=== PATIENT | male | born 1925 | race Caucasian/White ===

== ENCOUNTER 2016-09-14 10:19 | Emergency (ER) | payer OTHER ==
[2016-09-14 10:25] VITALS: BP 135/59; PULSE 72; TEMP 98; BMI 26.6
[2016-09-14] MEDS ORDERED: DIPHTH,PERTUSS(ACELL),TET 0.5 ML DISP.SYRIN IM ONE (11:06)
--- NOTE | 2016-09-14 11:17 | PDOC ---
History of Present Illness - General Chief Complaint: Bite Stated Complaint: DOG BITE Time Seen by Provider: 09/14/16 10:32 History Source: Patient, Spouse - History of Present Illness Associated Symptoms: denies: fever/chills Past History - Past Medical History Allergies/Adverse Reactions: Allergies Allergy/AdvReac Type Severity Reaction Status Date / Time No Known Allergies Allergy Verified 09/14/16 10:25 Home Medications: Ambulatory Orders Atorvastatin Ca [Lipitor] 10 mg PO DAILY 07/15/14 Carbidopa/Levodopa [Carbidopa-Levo 25-100 mg Odt] 0 each PO DAILY 07/15/14 Furosemide [Lasix -] 20 mg PO DAILY 07/15/14 Isosorbide Mononitrate [Isosorbide Mononitrate ER] 60 mg PO DAILY 07/15/14 Losartan Potassium 25 mg PO DAILY 07/15/14 Metoprolol Tartrate 50 mg PO DAILY 07/15/14 Omeprazole [Prilosec] 20 mg PO DAILY 07/15/14 Ranolazine [Ranexa] 500 mg PO BID 07/15/14 Selegiline HCl 5 mg PO BID 07/15/14 Aspirin [ASA -] 81 mg PO DAILY #30 tab.chew 07/19/14 Cephalexin [Keflex] 500 mg PO Q8H #21 capsule 07/19/14 Amoxicillin/Potassium Clav [Augmentin 875-125 Tablet] 1 each PO BID #14 tablet 09/14/16 Anemia: No Cardiac Disorders: Yes CVA: No HTN: Yes Hypercholesterolemia: Yes Suicide Attempt (Hx): No Seizures: No Thyroid Disease: No - Immunization History Immunization Up to Date: Yes - Psycho/Social/Smoking Cessation Hx Anxiety: No Suicidal Ideation: No Smoking Status: No Smoking History: Never smoked Have you smoked in the past 12 months: No Number of Cigarettes Smoked Daily: 0 Hx Alcohol Use: No Substance Use Type: None Hx Substance Use Treatment: No Review of Systems - Review of Systems Constitutional: No: Chills, Fever Integumentary: Yes: Other (wpund) *Physical Exam - Vital Signs Last Vital Signs Temp Pulse Resp BP Pulse Ox 98 F 72 18 135/59 97 09/14/16 10:20 09/14/16 10:20 09/14/16 10:20 09/14/16 10:20 05/16/17 10:20 - Physical Exam General Appearance: Yes: Appropriately Dressed. No: Apparent Distress HEENT: positive: Normal Voice Neck: positive: Supple Respiratory/Chest: negative: Respiratory Distress Musculoskeletal: positive: Other (superficial abration to distal phalanx of R thumb, near nail, no sig ttp, surrounding erythema or discharge) Integumentary: positive: Dry, Warm Neurologic: positive: Fully Oriented, Alert, Normal Mood/Affect Medical Decision Making - Medical Decision Making 09/14/16 11:08 89 yo M, h/o Parkinson skin, cancer s/p resection, HTN, here with dog bite. Pt states a friend's dog bit his R thumb last night after pt tried to give dog a treat. States dog's subscription agent told pt that dogs shots are up to date. States he has been cleaning wound with soap and water at home. Pt denies any sig pain and no f/c. See exam Dog bite Domestic dog source w/ uptodate vaccine per pt Superficial abrasion to distal phalanx R thumb, no s/o infxn -local wound care -tetanus -abx -state form sent -wound check in 48 hrs as needed 09/14/16 11:34 *DC/Admit/Observation/Transfer Diagnosis at time of Disposition: Dog bite Qualifiers: Encounter type: initial encounter Qualified Code(s): W54.0XXA - Bitten by dog, initial encounter - Discharge Dispostion Disposition: HOME Condition at time of disposition: Good - Prescriptions Prescriptions: Amoxicillin/Potassium Clav [Augmentin 875-125 Tablet] 1 each PO BID #14 tablet - Referrals Referrals: Chong Castellon MD [Primary Care Provider] - - Patient Instructions Printed Discharge Instructions: DI for Dog Bite Additional Instructions: Take antibiotics as directed Return to ED for worsening pain, discharge, redness or fever
== END 2016-09-14 11:34 | disposition home or self-care (01) ==
LOC: JERFT 10:19
PROC: 3E0234Z Introduction of Serum, Toxoid and Vaccine into Muscle, Percutaneous Approach (ICD-10-PCS; principal; 2016-09-14)
DX: S60.371A Other superficial bite of right thumb, initial encounter (principal); W54.0XXA Bitten by dog, initial encounter; Y93.K9 Activity, other involving animal care; Y92.89 Other specified places as the place of occurrence of the external cause; I10 Essential (primary) hypertension; E78.00 Pure hypercholesterolemia, unspecified
CPT/HCPCS: 90471; 90715; 99281-25

== ENCOUNTER 2017-05-20 16:26 | Inpatient (IN) | payer OTHER ==
--- NOTE | 2017-05-20 17:15 | PDOC ---
History of Present Illness - General Chief Complaint: Lightheaded Stated Complaint: DIZZINESS Time Seen by Provider: 05/20/17 17:13 History Source: Patient - History of Present Illness Initial Comments: 05/20/17 19:53 Patient is an 89 y.o. male with a PMH of Parkinson's Disease (w/residual L sided weakness) DLD and HTN who presents to our ED today with a c/o weakness, lightheadedness and intermittent vertigo. Patient states he was in his usual state of health this morning until he tried to stand up after eating breakfast at which time he felt lightheaded, diaphoretic and weak. Patient denies any associated chest pain or dyspnea. Patient states the lightheadedness persisted prompting his visit to the ED. NKDA PMD: Dr. Bateman Past History - Past Medical History Allergies/Adverse Reactions: Allergies Allergy/AdvReac Type Severity Reaction Status Date / Time No Known Allergies Allergy Verified 05/20/17 16:46 Home Medications: Ambulatory Orders Atorvastatin Ca [Lipitor] 10 mg PO DAILY 07/15/14 Carbidopa/Levodopa [Carbidopa-Levo 25-100 mg Odt] 0 each PO DAILY 07/15/14 Furosemide [Lasix -] 20 mg PO DAILY 07/15/14 Isosorbide Mononitrate [Isosorbide Mononitrate ER] 60 mg PO DAILY 07/15/14 Losartan Potassium 25 mg PO DAILY 07/15/14 Metoprolol Tartrate 50 mg PO DAILY 07/15/14 Omeprazole [Prilosec] 20 mg PO DAILY 07/15/14 Ranolazine [Ranexa] 500 mg PO BID 07/15/14 Selegiline HCl 5 mg PO BID 07/15/14 Aspirin [ASA -] 81 mg PO DAILY #30 tab.chew 07/19/14 Anemia: No Cardiac Disorders: Yes CVA: No COPD: No HTN: Yes Hypercholesterolemia: Yes Seizures: No Thyroid Disease: No Other medical history: PARKINSONS. - Immunization History Immunization Up to Date: Yes - Suicide/Smoking/Psychosocial Hx Smoking Status: No Smoking History: Never smoked Have you smoked in the past 12 months: No Number of Cigarettes Smoked Daily: 0 Hx Alcohol Use: No Drug/Substance Use Hx: No Substance Use Type: None Hx Substance Use Treatment: No Review of Systems - Review of Systems Constitutional: No: Chills, Fever HEENTM: No: Blurred Vision, Double Vision Respiratory: No: Shortness of Breath Cardiac (ROS): No: Chest Pain ABD/GI: No: Constipated, Diarrhea, Nausea, Vomiting : No: Burning, Dysuria All Other Systems: Reviewed and Negative *Physical Exam - Vital Signs Last Vital Signs Temp Pulse Resp BP Pulse Ox 97.9 F 62 18 124/52 100 05/20/17 16:44 05/20/17 16:44 05/20/17 16:44 05/20/17 16:44 05/20/17 16:44 - Physical Exam General Appearance: Yes: Nourished, Thin HEENT: positive: EOMI, EMILY, Thrush. negative: Pharyngeal Erythema, TM Bulging , TM Dull, TM Erythema Neck: positive: Supple Respiratory/Chest: positive: Lungs Clear Cardiovascular: positive: S1, S2, Edema (3+ pitting edema B/L) Extremity: positive: Normal Capillary Refill, Normal Inspection Integumentary: positive: Other (seborrheic keratosis on R temporal area, B/L LE) ED Treatment Course - LABORATORY CBC & Chemistry Diagram: 05/20/17 17:30 05/20/17 17:30 Medical Decision Making - Medical Decision Making 05/20/17 20:05 Patient is an 89 y.o. male who presents with acute onset of weakness. Will obtain EKG, Troponin to r/o ACS. CMP to r/o electrolyte abnormality and CBC to r/o anemia. Likely disposition is admission for further evaluation. Patient signed out to Dr. Nayak (Resident) and Dr. Clemente (Attending). *DC/Admit/Observation/Transfer Diagnosis at time of Disposition: Weakness - Referrals Referrals: Miguel Angel Bateman MD [Primary Care Provider] - - Patient Instructions - Post Discharge Activity
--- NOTE | 2017-05-20 17:16 | PDOC ---
Attending Attestation - Resident Resident Name: Joanna Victoria - HPI HPI: 05/21/17 18:57 PT presents to the ED complaining of an episode of generalized weakness and lightheadness that occurred while standing. Patient is still complaining of feeling "off balance" in the ED. 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 - Physicial Exam PE: 05/21/17 19:00 Agree with resident exam. Lungs are clear. Heart has regular rate and rhythm. Patient is alert and oriented in no acute distress. - Medical Decision Making 05/21/17 18:58 Pt presents to the ED with presyncopal episode. Labs and imaging studies are within normal limits, but given age and comorbidities, I am concerned for cardiac syncope. Will admit for cardiac monitoring and syncope work up.
[2017-05-20 17:39] LABS: BASO % 0.7 % (0-2.0); EOS % 1.9 % (0-4.5); HEMATOCRIT 35.8 % (35.4-49); HEMOGLOBIN 12.1 GM/dL (11.7-16.9); LYMPH % 16.1 % (8-40); MCHC 33.9 g/dl (32.0-35.9); MEAN CELL VOLUME 94.4 fl (80-96); MEAN PLT VOLUME 8.3 fl (7.5-11.1); MONO % 7.5 % (3.8-10.2); NEUT % 73.8 % (42.8-82.8); PLATELET COUNT 202 K/MM3 (134-434); RBC 3.79 M/mm3 (4.00-5.60); RDW 13.9 % (11.9-15.9)
[2017-05-20 18:34] LABS: ALBUMIN 3.4 g/dl (3.4-5.0); ANION GAP 6 (8-16); BLOOD UREA NITROGEN 26 mg/dL (7-18); CALCIUM 8.8 mg/dL (8.5-10.1); CHLORIDE 107 mmol/L (98-107); CO2 29 mmol/L (21-32); GLUCOSE,RANDOM 90 mg/dL (74-106); POTASSIUM 4.1 mmol/L (3.5-5.1); SODIUM 142 mmol/L (136-145)
[2017-05-20 18:40] LABS: ALK PHOS 89 U/L (45-117); BILIRUBIN,TOTAL 0.7 mg/dL (0.2-1.0); SGOT/AST 14 U/L (15-37); SGPT/ALT 10 U/L (12-78); TOT PROT 6.3 g/dl (6.4-8.2)
[2017-05-20] MEDS ORDERED: METOPROLOL SUCCINATE 25 MG TAB.SR.24H (FP) PO ONE (23:21)
[2017-05-20] MEDS ORDERED: FUROSEMIDE 40 MG TABLET (FP) PO ONE (23:21)
[2017-05-20] MEDS ORDERED: ATORVASTATIN CA 80 MG TABLET (FP) PO ONE (23:21)
[2017-05-20] MEDS ORDERED: CARBIDOPA/LEVODOPA 25/100 TABLET (FP) PO ONE (23:21)
--- NOTE | 2017-05-21 00:01 | PDOC ---
*Physical Exam - Vital Signs Last Vital Signs Temp Pulse Resp BP Pulse Ox 97.8 F 76 18 140/67 99 05/20/17 20:12 05/20/17 20:12 05/20/17 20:12 05/20/17 20:12 05/20/17 20:12 Patient's care assumed from Dr. Victoria at the beginning of my shift. 89 YOM h/o Parkinsons with chronic baseline left sided weakness, p/w generalized weakness, lightheadedness, intermittent vertigo. Awaiting lab results and will admit the patient for intractable lightheadedness/gen weakness, with neuro consult. ED Treatment Course - LABORATORY CBC & Chemistry Diagram: 05/20/17 17:30 05/20/17 17:30 - ADDITIONAL ORDERS Additional order review: Laboratory Results 05/20/17 05/20/17 17:30 17:30 WBC 8.0 RBC 3.79 L Hgb 12.1 Hct 35.8 MCV 94.4 MCH 32.0 MCHC 33.9 RDW 13.9 Plt Count 202 MPV 8.3 Neutrophils % 73.8 Lymphocytes % 16.1 D Monocytes % 7.5 Eosinophils % 1.9 Basophils % 0.7 Sodium 142 Potassium 4.1 Chloride 107 Carbon Dioxide 29 Anion Gap 6 L BUN 26 H D Creatinine 1.0 Creat Clearance w eGFR > 60 Random Glucose 90 Calcium 8.8 Total Bilirubin 0.7 D AST 14 L ALT 10 L Alkaline Phosphatase 89 Creatine Kinase 121 Troponin I < 0.02 Total Protein 6.3 L Albumin 3.4 05/20/17 17:30 RBC 3.79 L MCV 94.4 MCHC 33.9 RDW 13.9 MPV 8.3 Neutrophils % 73.8 Lymphocytes % 16.1 D Monocytes % 7.5 Eosinophils % 1.9 Basophils % 0.7 Medical Decision Making - Medical Decision Making 05/21/17 00:05 Patient's essential evening medications have been ordered. Patient admitted to Med/Surg IP to Dr. Lopez. Consult placed to Dr. Branham (OC for Neuro). *DC/Admit/Observation/Transfer Diagnosis at time of Disposition: Weakness, Lightheadedness, Parkinson disease, Vertigo - Discharge Dispostion Condition at time of disposition: Guarded Admit: Yes - Referrals Referrals: Miguel Angel Bateman MD [Primary Care Provider] - - Patient Instructions - Post Discharge Activity
[2017-05-21] MEDS ORDERED: FUROSEMIDE 40 MG TABLET (FP) ONE (00:10)
[2017-05-21] MEDS ORDERED: METOPROLOL TARTRATE 25 MG TABLET (FP) ONE (00:10)
[2017-05-21] MEDS ORDERED: CARBIDOPA/LEVODOPA 25/100 TABLET (FP) ONE (00:11)
[2017-05-21] MEDS ORDERED: ATORVASTATIN CA 40 MG TABLET (FP) ONE (00:15)
--- NOTE | 2017-05-21 00:28 | HP ---
Admitting History and Physical - Primary Care Physician PCP: Miguel Angel Bateman - Admission Chief Complaint: Couldn't get up from couch History of Present Illness: 89 yo M h/o Parkinson's disease on sinemet presents with inability to stand for 1 day. Patient is a poor historian, but states that he was unable to get up from couch this afternoon in that he felt weak and heavy. He uses cane and walker in the house and he is usually able to get up from sitting position to standing with minimal effort. His sinemet dose was recently increased by his neurologist. He denies any dizziness, room or self spinning, chest pain, palpation, headache, vision change, trauma, slurred speeches. History Source: Patient Limitations to Obtaining History: Other (hard at hearing) - Past Medical History [employer]: Yes: Parkinson's Cardiovascular: Yes: CAD, HTN, Other (unspecified cardiac disorder) Dermatology: Yes: Basal Cell (s/p resection), Melanoma (s/p resection) - Smoking History Smoking history: Never smoked Have you smoked in the past 12 months: No Aproximately how many cigarettes per day: 0 - Alcohol/Substance Use Hx Alcohol Use: No History of Substance Use: reports: None Home Medications - Allergies Allergies/Adverse Reactions: Allergies Allergy/AdvReac Type Severity Reaction Status Date / Time No Known Allergies Allergy Verified 05/20/17 16:46 - Home Medications Home Medications: Ambulatory Orders Atorvastatin Ca [Lipitor] 10 mg PO DAILY 07/15/14 Carbidopa/Levodopa [Carbidopa-Levo 25-100 mg Odt] 0 each PO DAILY 07/15/14 Furosemide [Lasix -] 20 mg PO DAILY 07/15/14 Isosorbide Mononitrate [Isosorbide Mononitrate ER] 60 mg PO DAILY 07/15/14 Losartan Potassium 25 mg PO DAILY 07/15/14 Metoprolol Tartrate 50 mg PO DAILY 07/15/14 Omeprazole [Prilosec] 20 mg PO DAILY 07/15/14 Ranolazine [Ranexa] 500 mg PO BID 07/15/14 Selegiline HCl 5 mg PO BID 07/15/14 Aspirin [ASA -] 81 mg PO DAILY #30 tab.chew 07/19/14 Family Disease History - Family Disease History Family Disease History: Diabetes: Father, Other: Mother (alzheimers) Review of Systems - Review of Systems Constitutional: reports: No Symptoms Eyes: reports: Other (R cataract) HENT: reports: No Symptoms Neck: reports: No Symptoms Cardiovascular: denies: Chest Pain, Palpitations Respiratory: denies: SOB Gastrointestinal: reports: No Symptoms Integumentary: reports: Other (skin changes) Neurological: reports: Unsteady Gait, Weakness Physical Examination Vital Signs: Vital Signs Temperature 97.8 F 05/20/17 20:12 Pulse Rate 76 05/20/17 20:12 Respiratory Rate 18 05/20/17 20:12 Blood Pressure 140/67 05/20/17 20:12 O2 Sat by Pulse Oximetry (%) 99 05/20/17 20:12 Constitutional: Yes: No Distress, Calm Eyes: Yes: Other (R eye cataract) HENT: Yes: Atraumatic, Normocephalic Neck: Yes: Supple Cardiovascular: Yes: Regular Rate and Rhythm, S1, S2. No: Murmur Respiratory: Yes: CTA Bilaterally Gastrointestinal: Yes: Normal Bowel Sounds, Soft. No: Tenderness Extremities: Yes: Other (peripheral edema) Edema: Yes Edema: LLE: 2+, RLE: 2+ Peripheral Pulses WNL: Yes Integumentary: Yes: Other (many moles) Neurological: Yes: Alert, Oriented, Cran Nerves II-XII Intact, Unsteady Gait, Other (hard at hearing). No: Confusion, Facial Droop ...Motor Strength: WNL Labs: CBC, BMP 05/20/17 17:30 05/20/17 17:30 Assessment/Plan 89 yo M h/o Parkinson's disease on sinemet presents with inability to stand x 1 day. 1. Inability to stand/ambulate: Ambulate w/ cane or walker with minimal assistance at baseline. Likely 2/2 Parkinson's disease flare-up. caridopa/leva dose was increased 6 months ago by his neurologist (Dr. Gordon @ [place]). No EKG was found in ED, stat EKG ordered. Cycle troponins. Will consult in-house neurology and PT eval. 2. b/l LE edema s/p CAD w/ stents: worsening edema past few weeks, cont. lasix and order ECHO. Cardiology consult. 3. Leg cramps: likely 2/2 parkinson's disease. unlikely due to lipitor. 4. Fullness in R ear: pt unable to describe sx in detail. ENT consult. 5. HTN: continue toprol, imdur, losartan, lasix 6. CAD, angina pectoris: continue asa, ranexa 7. Parkinson's Disease: continue carbidopa/levadopa and selegeline FEN: no fluid. sodium controlled diet, replete electrolytes PRN DVT ppx: heparin TID Dispo: Once cleared by neurology, ENT, Cards, patient may need to be discharged to rehab. Best Romero MD PGY2 Visit type - Emergency Visit Emergency Visit: Yes ED Registration Date: 05/21/17 Care time: The patient presented to the Emergency Department on the above date and was hospitalized for further evaluation of their emergent condition. - New Patient This patient is new to me today: Yes Date on this admission: 05/21/17 - Critical Care Critical Care patient: No
[2017-05-21 04:05] LABS: URINE APPEARANCE CLEAR; URINE BILIRUBIN NEGATIVE (NEGATIVE); URINE BLOOD NEGATIVE (NEGATIVE); URINE COLOR STRAW; URINE GLUCOSE (UA) NEGATIVE (NEGATIVE); URINE KETONE NEGATIVE (NEGATIVE); URINE LEUK ESTERASE NEGATIVE (NEGATIVE); URINE NITRITE NEGATIVE (NEGATIVE); URINE PROTEIN NEGATIVE (NEGATIVE); URINE UROBILINOGEN NEGATIVE mg/dL (0.2-1.0)
[2017-05-21 04:07] VITALS: BMI 25.7
--- NOTE | 2017-05-21 04:51 | PN ---
Teaching Attending Note Name of Resident: Best Romero ATTENDING PHYSICIAN STATEMENT I saw and evaluated the patient. I reviewed the resident's note and discussed the case with the resident. I agree with the resident's findings and plan as documented. SUBJECTIVE: patient presented for dizziness and inability to stand OBJECTIVE: aaox3 s1 and s2 rrr +3 pitting edema skin lesion ASSESSMENT AND PLAN: 89 yo M h/o Parkinson's disease on carvidopa/levodopa x 7 years presents with inability to stand x 1 day. 1. Inability to stand/ambulate: Ambulate w/ cane or walker with minimal assistance at baseline. Likely 2/2 Parkinson's disease flare-up. caridopa/leva dose was increased 6 months ago by his neurologist (Dr. Gordon @ [place]). No EKG was found in ED, stat EKG ordered. Cycle troponins. Will consult in-house neurology and PT eval. 2. b/l LE edema s/p CAD w/ stents: worsening edema past few weeks, cont. lasix and order ECHO. Cardiology consult. 3. Leg cramps: likely 2/2 parkinson's disease. unlikely due to lipitor. 4. Fullness in R ear: pt unable to describe sx in detail. ENT consult. 5. HTN: continue toprol, imdur, losartan, lasix 6. CAD, angina pectoris: continue asa, ranexa 7. Parkinson's Disease: continue carbidopa/levadopa and selegeline
[2017-05-21] MEDS: CARBIDOPA/LEVODOPA 25/100 TABLET (FP) PO SCH ×3 (05:54→22:26)
[2017-05-21] MEDS: PANTOPRAZOLE 20 MG TABLET (FP) PO SCH (10:00)
[2017-05-21] MEDS ORDERED: METOPROLOL TARTRATE 50 MG TABLET (FP) PO SCH (10:00)
[2017-05-21] MEDS ORDERED: SELEGILINE HCL 5 MG PO SCH (10:00)
[2017-05-21] MEDS: RANOLAZINE E.R. 500 MG TABLET (FP) PO SCH ×2 (10:00→22:26)
[2017-05-21] MEDS: LOSARTAN POTASSIUM 25 MG TABLET PO SCH (10:00)
[2017-05-21] MEDS: ASPIRIN 81 MG CHEWABLE TABLETS PO SCH (10:00)
[2017-05-21] MEDS: ENOXAPARIN NA (PORCINE) 40 MG/0.4 ML DISP.SYRIN SQ SCH (10:00)
[2017-05-21] MEDS: FUROSEMIDE 20 MG TABLET (FP) PO SCH (10:00)
[2017-05-21] MEDS ORDERED: ISOSORBIDE MONONITRATE 60 MG TAB.SR.24H (FP) PO SCH (10:00)
[2017-05-21] MEDS: ATORVASTATIN CA 10 MG TABLET (FP) PO SCH (10:00)
--- NOTE | 2017-05-21 10:05 | HOSP ---
Subjective - Review of Symptoms Events since last encounter: Feels better but unable to stand up since feeling very weak. Vital Signs Temperature 97.4 F L 05/21/17 09:21 Pulse Rate 66 05/21/17 09:21 Respiratory Rate 20 05/21/17 09:21 Blood Pressure 134/56 05/21/17 09:21 O2 Sat by Pulse Oximetry (%) 99 05/21/17 03:57 GENERAL: The patient is awake, alert, and fully oriented, in no acute distress. HEAD: Normal with no signs of trauma. EYES: PERRL, extraocular movements intact, sclera anicteric, conjunctiva clear. ENT: dry mucous membranes. NECK: supple. No JVD LUNGS: Breath sounds equal, clear to auscultation bilaterally, no wheezes, no crackles, no accessory muscle use. HEART: Regular rate and rhythm, S1, S2 without murmur, rub or gallop. ABDOMEN: Soft, nontender, nondistended, normoactive bowel sounds, no guarding, no rebound, EXTREMITIES: 2+ pulses, warm, well-perfused, 1 plus edema. strength 5/5 right arm , 4/5 left arm , sensation intact , LE strength 5/5 , sensation intact , NEUROLOGICAL: Cranial nerves II through XII grossly intact. Normal speech, gait not observed. PSYCH: Normal mood, normal affect. SKIN: Warm, dry, normal turgor, multiple keratotic acantosis on his right temporal area CBCD WBC 8.0 K/mm3 (4.0-10.0) 05/20/17 17:30 RBC 3.79 M/mm3 (4.00-5.60) L 05/20/17 17:30 Hgb 12.1 GM/dL (11.7-16.9) 05/20/17 17:30 Hct 35.8 % (35.4-49) 05/20/17 17:30 MCV 94.4 fl (80-96) 05/20/17 17:30 MCHC 33.9 g/dl (32.0-35.9) 05/20/17 17:30 RDW 13.9 % (11.9-15.9) 05/20/17 17:30 Plt Count 202 K/MM3 (134-434) 05/20/17 17:30 MPV 8.3 fl (7.5-11.1) 05/20/17 17:30 CMP Sodium 142 mmol/L (136-145) 05/20/17 17:30 Potassium 4.1 mmol/L (3.5-5.1) 05/20/17 17:30 Chloride 107 mmol/L (98-107) 05/20/17 17:30 Carbon Dioxide 29 mmol/L (21-32) 05/20/17 17:30 Anion Gap 6 (8-16) L 05/20/17 17:30 BUN 26 mg/dL (7-18) H D 05/20/17 17:30 Creatinine 1.0 mg/dL (0.7-1.3) 05/20/17 17:30 Creat Clearance w eGFR > 60 (>60) 05/20/17 17:30 Random Glucose 90 mg/dL (74-106) 05/20/17 17:30 Calcium 8.8 mg/dL (8.5-10.1) 05/20/17 17:30 Total Bilirubin 0.7 mg/dL (0.2-1.0) D 05/20/17 17:30 AST 14 U/L (15-37) L 05/20/17 17:30 ALT 10 U/L (12-78) L 05/20/17 17:30 Alkaline Phosphatase 89 U/L (45-117) 05/20/17 17:30 Total Protein 6.3 g/dl (6.4-8.2) L 05/20/17 17:30 Albumin 3.4 g/dl (3.4-5.0) 05/20/17 17:30 CARDIAC ENZYMES Creatine Kinase 121 IU/L (39-308) 05/20/17 17:30 Troponin I 0.03 ng/ml (0.00-0.05) 05/21/17 08:00 Current Medications Generic Name Dose Route Start Last Admin Trade Name Freq PRN Reason Stop Dose Admin Aspirin 81 mg 05/21/17 10:00 Asa - PO DAILY [facility] Atorvastatin Calcium 10 mg 05/21/17 10:00 Lipitor - PO DAILY [facility] Carbidopa/Levodopa 0.5 each 05/21/17 06:00 05/21/17 05:54 Sinemet 25/100 - PO 0.5 each TID [facility] Administration Enoxaparin Sodium 40 mg 05/21/17 10:00 Lovenox - SQ DAILY [facility] Furosemide 20 mg 05/21/17 10:00 Lasix - PO DAILY [facility] Isosorbide Mononitrate 60 mg 05/21/17 10:00 Imdur - PO DAILY [facility] Losartan Potassium 25 mg 05/21/17 10:00 Cozaar - PO DAILY [facility] Metoprolol Tartrate 50 mg 05/21/17 10:00 Lopressor - PO DAILY [facility] Non-Formulary Medication 5 mg 05/21/17 10:00 Selegiline Hcl [Selegiline Hcl] PO BID [facility] Pantoprazole Sodium 20 mg 05/21/17 10:00 Protonix - PO DAILY [facility] Ranolazine 500 mg 05/21/17 10:00 Ranexa - PO BID [facility] Home Medications Medication Instructions Recorded Atorvastatin Ca [Lipitor] 10 mg PO DAILY 07/15/14 Carbidopa/Levodopa [Carbidopa-Levo 0 each PO DAILY 07/15/14 25-100 mg Odt] Furosemide [Lasix -] 20 mg PO DAILY 07/15/14 Isosorbide Mononitrate [Isosorbide 60 mg PO DAILY 07/15/14 Mononitrate ER] Losartan Potassium 25 mg PO DAILY 07/15/14 Metoprolol Tartrate 50 mg PO DAILY 07/15/14 Omeprazole [Prilosec] 20 mg PO DAILY 07/15/14 Ranolazine [Ranexa] 500 mg PO BID 07/15/14 Selegiline HCl 5 mg PO BID 07/15/14 Aspirin [ASA -] 81 mg PO DAILY #30 tab.chew 07/19/14 A/P: 89 yo M h/o Parkinson's disease on carvidopa/levodopa x 7 years presents with inability to stand x 1 day. # Acute generalized weakness with inability to stand/ambulate: needs 2 people assist . No EKG was found in ED, stat EKG ordered. monitor troponins. consult neurolgist and PT isa. # b/l LE edema s/p CAD w/ stents: worsening edema past few weeks, cont. lasix and order ECHO. Cardiology consult his cardio # HTN: continue toprol, imdur, losartan, lasix # CAD, angina pectoris: continue asa, ranexa # Parkinson's Disease: continue carbidopa/levadopa and selegeline ,His neurologist (Dr. Gordon @ [place]). Discussed with who is his modeling analyst , patient is having Hypotension , will adjust his meds accordingly , will give him a bolus of IV fluid. Discussed with his Proxy. Mr. Nassar [phone] out of [facility]. Patient is needing 2 people assist. Made the patient inpatient for the reasons above. Physical Examination Vital Signs: Vital Signs Temperature 97.4 F L 05/21/17 09:21 Pulse Rate 66 05/21/17 09:21 Respiratory Rate 20 05/21/17 09:21 Blood Pressure 134/56 05/21/17 09:21 O2 Sat by Pulse Oximetry (%) 99 05/21/17 03:57 Labs: CBC, BMP 05/20/17 17:30 05/20/17 17:30
--- NOTE | 2017-05-21 12:56 | CONSULT ---
Consult - text type - Consultation Consultation Note: Neurology History of Present Illness Patient is an 89 y.o. male with a PMH of Parkinson's Disease (w/residual L sided weakness) DLD and HTN who presents to our ED today with a c/o weakness, lightheadedness and intermittent vertigo. Patient states he was in his usual state of health this morning until he tried to stand up after eating breakfast at which time he felt lightheaded, diaphoretic and weak. Patient denies any associated chest pain or dyspnea. Patient stated the lightheadedness persisted prompting his visit to the ED. He did not have imaging of the head completed in ER and therefore ordered CT scan. Physcial therapy ordered. Unclear if this is acute or maybe chronically due to Parkinson's. Will obtain imaging to further elucidate. Active Medications Aspirin (Asa -) 81 mg PO DAILY [facility] Last Admin: 05/21/17 10:00 Dose: 81 mg Atorvastatin Calcium (Lipitor -) 10 mg PO DAILY [facility] Last Admin: 05/21/17 10:00 Dose: 10 mg Carbidopa/Levodopa (Sinemet 25/100 -) 0.5 each PO TID [facility] Last Admin: 05/21/17 05:54 Dose: 0.5 each Enoxaparin Sodium (Lovenox -) 40 mg SQ DAILY [facility] Last Admin: 05/21/17 10:00 Dose: 40 mg Furosemide (Lasix -) 20 mg PO DAILY [facility] Last Admin: 05/21/17 10:00 Dose: 20 mg Isosorbide Mononitrate (Imdur -) 60 mg PO DAILY [facility] Last Admin: 05/21/17 10:00 Dose: 60 mg Losartan Potassium (Cozaar -) 25 mg PO DAILY [facility] Last Admin: 05/21/17 10:00 Dose: 25 mg Metoprolol Tartrate (Lopressor -) 50 mg PO DAILY [facility] Last Admin: 05/21/17 10:00 Dose: 50 mg Non-Formulary Medication (Selegiline Hcl [Selegiline Hcl]) 5 mg PO BID [facility] Pantoprazole Sodium (Protonix -) 20 mg PO DAILY [facility] Last Admin: 05/21/17 10:00 Dose: 20 mg Ranolazine (Ranexa -) 500 mg PO BID [facility] Last Admin: 05/21/17 10:00 Dose: 500 mg Anemia: No Cardiac Disorders: Yes CVA: No COPD: No HTN: Yes Hypercholesterolemia: Yes Seizures: No Thyroid Disease: No Other medical history: PARKINSONS. - Immunization History Immunization Up to Date: Yes - Suicide/Smoking/Psychosocial Hx Smoking Status: No Smoking History: Never smoked Have you smoked in the past 12 months: No Number of Cigarettes Smoked Daily: 0 Hx Alcohol Use: No Drug/Substance Use Hx: No Substance Use Type: None Hx Substance Use Treatment: No Review of Systems - Review of Systems Constitutional: No: Chills, Fever HEENTM: No: Blurred Vision, Double Vision Respiratory: No: Shortness of Breath Cardiac (ROS): No: Chest Pain ABD/GI: No: Constipated, Diarrhea, Nausea, Vomiting : No: Burning, Dysuria All Other Systems: Reviewed and Negative *Physical Exam - Vital Signs Last Vital Signs Temp Pulse Resp BP Pulse Ox 97.9 F 62 18 124/52 100 05/20/17 16:44 05/20/17 16:44 05/20/17 16:44 05/20/17 16:44 05/20/17 16:44 - Physical Exam General Appearance: Yes: Nourished, Thin HEENT: positive: EOMI, EMILY, Thrush. negative: Pharyngeal Erythema, TM Bulging , TM Dull, TM Erythema Neck: positive: Supple Respiratory/Chest: positive: Lungs Clear Cardiovascular: positive: S1, S2, Edema (3+ pitting edema B/L) Extremity: positive: Normal Capillary Refill, Normal Inspection Integumentary: positive: Other (seborrheic keratosis on R temporal area, B/L LE) CBCD WBC 8.0 K/mm3 (4.0-10.0) 05/20/17 17:30 RBC 3.79 M/mm3 (4.00-5.60) L 05/20/17 17:30 Hgb 12.1 GM/dL (11.7-16.9) 05/20/17 17:30 Hct 35.8 % (35.4-49) 05/20/17 17:30 MCV 94.4 fl (80-96) 05/20/17 17:30 MCHC 33.9 g/dl (32.0-35.9) 05/20/17 17:30 RDW 13.9 % (11.9-15.9) 05/20/17 17:30 Plt Count 202 K/MM3 (134-434) 05/20/17 17:30 MPV 8.3 fl (7.5-11.1) 05/20/17 17:30 CMP Sodium 142 mmol/L (136-145) 05/20/17 17:30 Potassium 4.1 mmol/L (3.5-5.1) 05/20/17 17:30 Chloride 107 mmol/L (98-107) 05/20/17 17:30 Carbon Dioxide 29 mmol/L (21-32) 05/20/17 17:30 Anion Gap 6 (8-16) L 05/20/17 17:30 BUN 26 mg/dL (7-18) H D 05/20/17 17:30 Creatinine 1.0 mg/dL (0.7-1.3) 05/20/17 17:30 Creat Clearance w eGFR > 60 (>60) 05/20/17 17:30 Calcium 8.8 mg/dL (8.5-10.1) 05/20/17 17:30 Total Bilirubin 0.7 mg/dL (0.2-1.0) D 05/20/17 17:30 AST 14 U/L (15-37) L 05/20/17 17:30 ALT 10 U/L (12-78) L 05/20/17 17:30 Alkaline Phosphatase 89 U/L (45-117) 05/20/17 17:30 Total Protein 6.3 g/dl (6.4-8.2) L 05/20/17 17:30 Albumin 3.4 g/dl (3.4-5.0) 05/20/17 17:30 CT head ordered Plan: 89 y.o. male with a PMH of Parkinson's Disease (w/residual L sided weakness) DLD and HTN who presents to our ED today with a c/o weakness, lightheadedness and intermittent vertigo. Patient states he was in his usual state of health this morning until he tried to stand up after eating breakfast at which time he felt lightheaded, diaphoretic and weak. Patient denies any associated chest pain or dyspnea. Patient stated the lightheadedness persisted prompting his visit to the ED. He did not have imaging of the head completed in ER and therefore ordered CT scan. Physcial therapy ordered. Unclear if this is acute or maybe chronically due to Parkinson's. Will obtain imaging to further elucidate. Maintain adequate hydration, fall precautions. Monitor blood pressure , maintain normotensive range. Will add meclezine PRN for vertigo.
[2017-05-21] MEDS ORDERED: SODIUM CHLORIDE 500 ML IV STA (15:16)
--- NOTE | 2017-05-21 15:26 | EKG ---
Test Reason : Blood Pressure : / mmHG Vent. Rate : 069 BPM Atrial Rate : 057 BPM P-R Int : 000 ms QRS Dur : 102 ms QT Int : 416 ms P-R-T Axes : 000 012 034 degrees QTc Int : 445 ms NORMAL SINUS RHYTHM WITH 1ST DEGREE A-V BLOCK NONSPECIFIC ST ABNORMALITY ABNORMAL ECG WHEN COMPARED WITH ECG OF 28-SEP-2014 20:42, JUNCTIONAL RHYTHM HAS REPLACED SINUS RHYTHM NONSPECIFIC T WAVE ABNORMALITY NO LONGER EVIDENT IN LATERAL LEADS Confirmed by Jesus Tsang ([id number]) on 05/21/2017 3:26:15 PM Referred By: Confirmed By:Jesus Tsang
[2017-05-21] MEDS ORDERED: SODIUM CHLORIDE 250 ML IV STA (15:30)
[2017-05-22] MEDS: CARBIDOPA/LEVODOPA 25/100 TABLET (FP) PO SCH ×3 (06:56→21:32)
--- NOTE | 2017-05-22 08:11 | CONS ---
DATE OF CONSULTATION: 05/21/2017 CARDIOLOGY CONSULTATION CONSULTATION REQUESTED BY: Chidi Sanchez M.D. CHIEF COMPLAINT: Gait disturbance. HISTORY OF PRESENT ILLNESS: The patient is an 89-year-old white gentleman who is well-known to me. He has long-standing history of coronary artery disease, status post acute coronary syndrome, status post multivessel PCI/stenting, history of hypertension, congestive heart failure and parkinsonism. The patient states he woke up on the day of admission and tried to stand up, but felt unsteady and could not balance himself. So he sat down and tried again and had similar symptoms. There is no history of vertigo, lightheadedness, dizziness, presyncope or syncope reported. No history of chest pain or discomfort either at rest or with exertion. No exertional dyspnea, paroxysmal nocturnal dyspnea or orthopnea. No history of palpitations. There is no history of diabetes mellitus. PAST MEDICAL HISTORY: 1. As mentioned in the history of present illness. 2. History of hypertension. 3. History of upper GI bleeding. 4. Recurring multiple skin carcinomas. PAST SURGICAL HISTORY: 1. Multiple Mohs procedures. 2. Status post tonsillectomy. SOCIAL HISTORY: The patient is single. He is retired. He stopped smoking in 1951. He used to smoke less than 1 pack of cigarettes per day. He has a social drink. FAMILY HISTORY: Father at the age of 73 due to complications of diabetes mellitus. Mother at age 89 related to dementia. He has no siblings. ALLERGIES: None recorded. CURRENT MEDICATIONS: 1. Selegiline 5 mg p.o. b.i.d. 2. Losartan 25 mg p.o. daily. 3. Lovenox 40 mg subcutaneously daily. 4. Metoprolol tartrate 25 mg p.o. b.i.d. 5. Ranexa 500 mg p.o. b.i.d. 6. Sinemet 25/100 mg 1 p.o. t.i.d. 7. Atorvastatin 10 mg p.o. daily. 8. Furosemide 20 mg p.o. daily. 9. Isosorbide mononitrate 30 mg p.o. daily. 10. Aspirin 81 mg p.o. daily. 11. Pantoprazole 20 mg p.o. daily. Medications prior to admission were similar, except that the isosorbide dose was 60 mg p.o. daily. REVIEW OF SYSTEMS: Constitutional: No history of chills, fever or night sweats. No history of unintentional weight loss. HEENT: No history of headaches, diplopia or blurred vision reported. No history of epistaxis or hoarseness. History of bilateral deafness. Denies having tinnitus. No history of vertigo. Cardiovascular: See history of present illness. Respiratory: No history of cough, expectoration or hemoptysis. No history of tuberculosis. Gastrointestinal: No history of nausea, vomiting, melena or hematemesis. Previous history of upper GI bleeding. No history of abdominal pain or discomfort. No history of change in bowel habits. Endocrine: No history of polyuria or polydipsia. No history of intolerance to cold or warm weather. Musculoskeletal: Denies having any recent arthralgias or myalgias. Genitourinary: No history of frequency or urgency. Occasional nocturia. No history of hematuria. Central Nervous System: See history of present illness. No history of focal weakness, seizures or syncope. Hematological/Lymphatic: No history of ecchymosis, bleeding or anemia. No history of lymphadenopathy. PHYSICAL EXAMINATION: General: An 89-year-old gentleman who is hard of hearing. He was in no acute distress. There was no pallor, cyanosis, clubbing or jaundice. Vital Signs: Blood pressure 80/41 mmHg. Pulse was 57 beats per minute and regular. Respirations were 20 per minute. Temperature was 97.4 degrees Fahrenheit. Weight was 164 pounds 8 ounces. Oxygen saturation was 99% on room air. Neck: Supple. No jugular venous distention. Hepatojugular reflux was negative. Carotids were 2+; upstrokes were normal. No bruits were heard, and no thyromegaly was present. Heart: PMI was in the 5th intercostal space. No heaves or thrills. S1 and S2 were normal. A grade 1/6 ejection murmur was heard at the apex in the left lateral position. No diastolic murmur or gallops were heard. Lungs: Clear on auscultation. Abdomen: Soft, proberant and nontender. No hepatosplenomegaly or palpable masses were felt. Bowel sounds were present. No bruits were heard. Extremities: No calf tenderness. There was 1+ bilateral ankle edema. Femoral pulses were 2+. Dorsalis pedis pulses were 1+. Posterior tibial pulses were weak. ELECTROCARDIOGRAM: ECG of May 21, 2017, reported as normal sinus rhythm with 1st degree AV block, nonspecific ST abnormalities. When compared to ECG of September 28, 2014, junctional rhythm has been replaced by sinus rhythm. Nonspecific T-wave abnormalities no longer evident in the lateral leads. RADIOLOGY: X-ray of the chest: No acute chest pathology. No change of adverse nature since September 28, 2014. LABORATORY DATA: 1. CBC: WBC count 8000, hemoglobin 12.1 g/dL; platelet count 202,000. Normal differential. 2. Chemistry: Sodium 142, potassium 4.1, chloride 107, CO2 of 29 mmol/L, BUN 26, creatinine 1.0 mg/dL. Calcium 8.8 mg/dL. Total protein 6.3, albumin 3.4 g/dL. 3. Troponin less than 0.02, 0.03 and 0.03. 4. Urinalysis was negative. IMPRESSION: 1. Unsteadiness is multifactorial, related to parkinsonism and problem postural hypotension. 2. Coronary artery disease, status post percutaneous coronary intervention/stenting (drug-eluding stent). Stable angina pectoris. 3. History of hypertension. 4. Status post congestive heart failure. 5. Status post upper gastrointestinal bleeding. 6. Bilateral deafness. 7. Hypercholesterolemia. RECOMMENDATIONS: 1. Check blood pressure supine and standing. 2. Medication must be spaced as it may be contributing to his unsteadiness. 3. Concur with cautious fluid replacement. 4. The patient should be counseled regarding using a cane or a walker at home. 5. He was counseled regarding increasing his fluid intake cautiously. PROGNOSIS: Guarded. Thank you for your referral. EL DESAI M.D. [id number]
[2017-05-22 09:04] LABS: PHOSPHOROUS 2.9 mg/dL (2.5-4.9)
[2017-05-22 09:11] LABS: MAGNESIUM 1.7 mg/dL (1.8-2.4)
--- NOTE | 2017-05-22 10:35 | PN ---
Physical Exam: SUBJECTIVE: Patient seen and examined at bedside, no acute events over night, denies any fever, chills,N/V/D / he reports some constipation will give Colace, he was able to stand with help of 2 people. OBJECTIVE: Vital Signs Period Temp Pulse Resp BP Sys/Barrett Pulse Ox Last 24 Hr 97.4 F-98.7 F 57-68 19-21 80-131/41-74 99-99 GENERAL: The patient is awake, alert, and fully oriented, in no acute distress. HEAD: Normal with no signs of trauma. EYES: PERRL, extraocular movements intact, sclera anicteric, conjunctiva clear. ENT: dry mucous membranes. NECK: supple. LUNGS: Breath sounds equal, clear to auscultation bilaterally, no wheezes, no crackles, no accessory muscle use. HEART: Regular rate and rhythm, S1, S2 without murmur, rub or gallop. ABDOMEN: Soft, nontender, nondistended, normoactive bowel sounds, no guarding, no rebound, EXTREMITIES: 2+ pulses, warm, well-perfused, trace edema. strength 5/5 right arm , 4/5 left arm , sensation intact , LE strength 5/5 , sensation intact , NEUROLOGICAL: Cranial nerves II through XII grossly intact. Normal speech, gait not observed. PSYCH: Normal mood, normal affect. SKIN: Warm, dry, normal turgor, no rashes or lesions noted Laboratory Results - last 24 hr 05/22/17 08:00 Phosphorus 2.9 Magnesium 1.7 L Active Medications Generic Name Dose Route Start Last Admin Trade Name Freq PRN Reason Stop Dose Admin Aspirin 81 mg 05/21/17 10:00 05/21/17 10:00 Asa - PO 81 mg DAILY ELENITA Administration Atorvastatin Calcium 10 mg 05/21/17 10:00 05/21/17 10:00 Lipitor - PO 10 mg DAILY ELENITA Administration Carbidopa/Levodopa 0.5 each 05/21/17 06:00 05/22/17 06:56 Sinemet 25/100 - PO 0.5 each TID ELENITA Administration Enoxaparin Sodium 40 mg 05/21/17 10:00 05/21/17 10:00 Lovenox - SQ 40 mg DAILY ELENITA Administration Furosemide 20 mg 05/21/17 10:00 05/21/17 10:00 Lasix - PO 20 mg DAILY ELENITA Administration Isosorbide Mononitrate 30 mg 05/22/17 10:00 Imdur - PO DAILY ELENITA Losartan Potassium 25 mg 05/21/17 10:00 05/21/17 10:00 Cozaar - PO 25 mg DAILY [facility]ENITA Administration Metoprolol Tartrate 25 mg 05/22/17 10:00 Lopressor - PO BID ELENITA Non-Formulary Medication 5 mg 05/21/17 10:00 Selegiline Hcl [Selegiline Hcl] PO BID [facility]ITA Pantoprazole Sodium 20 mg 05/21/17 10:00 05/21/17 10:00 Protonix - PO 20 mg DAILY [facility] Administration Ranolazine 500 mg 05/21/17 10:00 05/21/17 22:26 Ranexa - PO 500 mg BID ELENITA Administration CBC, BMP 05/20/17 17:30 05/20/17 17:30 EKG 05/21/2017 : NSR , with first degree av block , No ST, T wave changes , QT 416. CXR 05/21/2017 No Acute pathology Head CT: 05/22/2017 Pending reading ASSESSMENT/PLAN: 89 y.o. male with a PMH of Parkinson's Disease (w/residual L sided weakness) HLD and HTN who presents to our ED today with a c/o weakness, lightheadedness and intermittent vertigo. # Inability to stand/ambulate: * Ambulate w/ cane or walker with minimal assistance at baseline. * Likely 2/2 Parkinson's disease flare-up. * caridopa/leva dose was increased 6 months ago by his neurologist (Dr. Gordon @ [facility]). * No EKG was found in ED, stat EKG ordered. Cycle troponins. * Will consult in-house neurology * Head CT ordered pending reading * PT eval. * Fall precautions * Meclezine PRN for vertgo per neurologist # b/l LE edema s/p CAD w/ stents: * worsening edema past few weeks, * cont. lasix * order ECHO. * Cardiology consult. # Hypomagnesia, * MG today 1.7 * Replenish Mg sulfate IVBP 1 g once , * repeat mg level in AM #Leg cramps: likely 2/2 parkinson's disease. unlikely due to lipitor. # Fullness in R ear: pt unable to describe sx in detail. * ENT consult. #HTN: * continue toprol, imdur, losartan, lasix # CAD, angina pectoris: * continue asa, ranexa # Parkinson's Disease: * continue carbidopa/levadopa and selegeline * Does of Sinemet increased to [address] vizcarra recommendations #FEN: * no fluid. * replete electrolytes PRN * sodium controlled diet, #DVT ppx: * heparin SQ TID #Dispo: * Once cleared by neurology, ENT, Cards, patient may need to be discharged to rehab. Visit type - Emergency Visit Emergency Visit: Yes ED Registration Date: 05/21/17 Care time: The patient presented to the Emergency Department on the above date and was hospitalized for further evaluation of their emergent condition. - New Patient This patient is new to me today: No - Critical Care Critical Care patient: No
[2017-05-22] MEDS ORDERED: MAGNESIUM SULF 50% (8.12 MEQ/2 ML-1 GM VIAL) IVPB ONE (10:41)
[2017-05-22] MEDS: ASPIRIN 81 MG CHEWABLE TABLETS PO SCH (10:45)
[2017-05-22] MEDS: ISOSORBIDE MONONITRATE 30 MG TAB.SR.24H (FP) PO SCH (10:45)
[2017-05-22] MEDS: METOPROLOL TARTRATE 25 MG TABLET (FP) PO SCH ×2 (10:45→21:32)
[2017-05-22] MEDS: RANOLAZINE E.R. 500 MG TABLET (FP) PO SCH ×2 (10:45→21:32)
[2017-05-22] MEDS: FUROSEMIDE 20 MG TABLET (FP) PO SCH (10:45)
[2017-05-22] MEDS: ATORVASTATIN CA 10 MG TABLET (FP) PO SCH (10:45)
[2017-05-22] MEDS: LOSARTAN POTASSIUM 25 MG TABLET PO SCH (10:45)
[2017-05-22] MEDS: ENOXAPARIN NA (PORCINE) 40 MG/0.4 ML DISP.SYRIN SQ SCH (10:45)
[2017-05-22] MEDS: PANTOPRAZOLE 20 MG TABLET (FP) PO SCH (10:45)
[2017-05-22] MEDS: DOCUSATE SODIUM 100 MG CAPSULE (FP) PO SCH ×2 (11:41→21:32)
--- NOTE | 2017-05-22 12:48 | PN ---
Progress Note (short form) - Note Progress Note: Neurology History of Present Illness Patient is an 89 y.o. male with a PMH of Parkinson's Disease (w/residual L sided weakness) DLD and HTN who presents to our ED today with a c/o weakness, lightheadedness and intermittent vertigo. Patient states he was in his usual state of health this morning until he tried to stand up after eating breakfast at which time he felt lightheaded, diaphoretic and weak. Patient denies any associated chest pain or dyspnea. Patient stated the lightheadedness persisted prompting his visit to the ED. He did not have imaging of the head completed in ER and therefore ordered CT scan. Completed CT head, awaiting official read. Images reviewed. Physcial therapy ordered. Unclear if this is acute or maybe chronically due to Parkinson's. Active Medications Aspirin (Asa -) 81 mg PO DAILY [facility] Last Admin: 05/22/17 10:45 Dose: 81 mg Atorvastatin Calcium (Lipitor -) 10 mg PO DAILY [facility] Last Admin: 05/22/17 10:45 Dose: 10 mg Carbidopa/Levodopa (Sinemet 25/100 -) 1 each PO TID [facility] Docusate Sodium (Colace -) 100 mg PO BID [facility] Last Admin: 05/22/17 11:41 Dose: 100 mg Enoxaparin Sodium (Lovenox -) 40 mg SQ DAILY [facility] Last Admin: 05/22/17 10:45 Dose: 40 mg Furosemide (Lasix -) 20 mg PO DAILY [facility] Last Admin: 05/22/17 10:45 Dose: 20 mg Isosorbide Mononitrate (Imdur -) 30 mg PO DAILY [facility] Last Admin: 05/22/17 10:45 Dose: 30 mg Losartan Potassium (Cozaar -) 25 mg PO DAILY [facility] Last Admin: 05/22/17 10:45 Dose: 25 mg Metoprolol Tartrate (Lopressor -) 25 mg PO BID [facility] Last Admin: 05/22/17 10:45 Dose: 25 mg Non-Formulary Medication (Selegiline Hcl [Selegiline Hcl]) 5 mg PO BID [facility] Pantoprazole Sodium (Protonix -) 20 mg PO DAILY [facility] Last Admin: 05/22/17 10:45 Dose: 20 mg Ranolazine (Ranexa -) 500 mg PO BID [facility] Last Admin: 05/22/17 10:45 Dose: 500 mg *Physical Exam Vital Signs Temperature 98.4 F 05/22/17 10:43 Pulse Rate 72 05/22/17 10:43 Respiratory Rate 19 05/22/17 10:43 Blood Pressure 146/72 05/22/17 10:43 O2 Sat by Pulse Oximetry (%) 99 05/22/17 03:00 - Physical Exam General Appearance: Yes: Nourished, Thin HEENT: positive: EOMI, EMILY, Thrush. negative: Pharyngeal Erythema, TM Bulging , TM Dull, TM Erythema Neck: positive: Supple Respiratory/Chest: positive: Lungs Clear Cardiovascular: positive: S1, S2, Edema (3+ pitting edema B/L) Extremity: positive: Normal Capillary Refill, Normal Inspection Integumentary: positive: Other (seborrheic keratosis on R temporal area, B/L LE) CBCD WBC 8.0 K/mm3 (4.0-10.0) 05/20/17 17:30 RBC 3.79 M/mm3 (4.00-5.60) L 05/20/17 17:30 Hgb 12.1 GM/dL (11.7-16.9) 05/20/17 17:30 Hct 35.8 % (35.4-49) 05/20/17 17:30 MCV 94.4 fl (80-96) 05/20/17 17:30 MCHC 33.9 g/dl (32.0-35.9) 05/20/17 17:30 RDW 13.9 % (11.9-15.9) 05/20/17 17:30 Plt Count 202 K/MM3 (134-434) 05/20/17 17:30 MPV 8.3 fl (7.5-11.1) 05/20/17 17:30 CMP Sodium 142 mmol/L (136-145) 05/20/17 17:30 Potassium 4.1 mmol/L (3.5-5.1) 05/20/17 17:30 Chloride 107 mmol/L (98-107) 05/20/17 17:30 Carbon Dioxide 29 mmol/L (21-32) 05/20/17 17:30 Anion Gap 6 (8-16) L 05/20/17 17:30 BUN 26 mg/dL (7-18) H D 05/20/17 17:30 Creatinine 1.0 mg/dL (0.7-1.3) 05/20/17 17:30 Creat Clearance w eGFR > 60 (>60) 05/20/17 17:30 Calcium 8.8 mg/dL (8.5-10.1) 05/20/17 17:30 Total Bilirubin 0.7 mg/dL (0.2-1.0) D 05/20/17 17:30 AST 14 U/L (15-37) L 05/20/17 17:30 ALT 10 U/L (12-78) L 05/20/17 17:30 Alkaline Phosphatase 89 U/L (45-117) 05/20/17 17:30 Total Protein 6.3 g/dl (6.4-8.2) L 05/20/17 17:30 Albumin 3.4 g/dl (3.4-5.0) 05/20/17 17:30 CT head completed Plan: 89 y.o. male with a PMH of Parkinson's Disease (w/residual L sided weakness) DLD and HTN who presents to our ED today with a c/o weakness, lightheadedness and intermittent vertigo. Patient states he was in his usual state of health this morning until he tried to stand up after eating breakfast at which time he felt lightheaded, diaphoretic and weak. Patient denies any associated chest pain or dyspnea. Patient stated the lightheadedness persisted prompting his visit to the ED. He did not have imaging of the head completed in ER and therefore ordered CT scan. Physcial therapy ordered. Unclear if this is acute or maybe chronically due to Parkinson's. Maintain adequate hydration, fall precautions. Monitor blood pressure, maintain normotensive range. Will add meclezine PRN for vertigo. recommended increasing sinemet to 1mg three times daily.
--- NOTE | 2017-05-22 13:29 | PN ---
Teaching Attending Note Name of Resident: Kofi Dewitt ATTENDING PHYSICIAN STATEMENT I saw and evaluated the patient. I reviewed the resident's note and discussed the case with the resident. I agree with the resident's findings and plan as documented. SUBJECTIVE: Patient is feeling better with no acute distress, feel better but still weak. OBJECTIVE: Vital Signs Temperature 98.4 F 05/22/17 10:43 Pulse Rate 72 05/22/17 10:43 Respiratory Rate 19 05/22/17 10:43 Blood Pressure 146/72 05/22/17 10:43 O2 Sat by Pulse Oximetry (%) 99 05/22/17 03:00 CBCD WBC 8.0 K/mm3 (4.0-10.0) 05/20/17 17:30 RBC 3.79 M/mm3 (4.00-5.60) L 05/20/17 17:30 Hgb 12.1 GM/dL (11.7-16.9) 05/20/17 17:30 Hct 35.8 % (35.4-49) 05/20/17 17:30 MCV 94.4 fl (80-96) 05/20/17 17:30 MCHC 33.9 g/dl (32.0-35.9) 05/20/17 17:30 RDW 13.9 % (11.9-15.9) 05/20/17 17:30 Plt Count 202 K/MM3 (134-434) 05/20/17 17:30 MPV 8.3 fl (7.5-11.1) 05/20/17 17:30 CMP Sodium 142 mmol/L (136-145) 05/20/17 17:30 Potassium 4.1 mmol/L (3.5-5.1) 05/20/17 17:30 Chloride 107 mmol/L (98-107) 05/20/17 17:30 Carbon Dioxide 29 mmol/L (21-32) 05/20/17 17:30 Anion Gap 6 (8-16) L 05/20/17 17:30 BUN 26 mg/dL (7-18) H D 05/20/17 17:30 Creatinine 1.0 mg/dL (0.7-1.3) 05/20/17 17:30 Creat Clearance w eGFR > 60 (>60) 05/20/17 17:30 Random Glucose 90 mg/dL (74-106) 05/20/17 17:30 Calcium 8.8 mg/dL (8.5-10.1) 05/20/17 17:30 Total Bilirubin 0.7 mg/dL (0.2-1.0) D 05/20/17 17:30 AST 14 U/L (15-37) L 05/20/17 17:30 ALT 10 U/L (12-78) L 05/20/17 17:30 Alkaline Phosphatase 89 U/L (45-117) 05/20/17 17:30 Total Protein 6.3 g/dl (6.4-8.2) L 05/20/17 17:30 Albumin 3.4 g/dl (3.4-5.0) 05/20/17 17:30 CARDIAC ENZYMES Creatine Kinase 121 IU/L (39-308) 05/20/17 17:30 Troponin I 0.03 ng/ml (0.00-0.05) 05/21/17 08:00 Current Medications Generic Name Dose Route Start Last Admin Trade Name Vincentq PRN Reason Stop Dose Admin Aspirin 81 mg 05/21/17 10:00 05/22/17 10:45 Asa - PO 81 mg DAILY ELENITA Administration Atorvastatin Calcium 10 mg 05/21/17 10:00 05/22/17 10:45 Lipitor - PO 10 mg DAILY ELENITA Administration Carbidopa/Levodopa 1 each 05/22/17 14:00 Sinemet 25/100 - PO TID ELENITA Docusate Sodium 100 mg 05/22/17 11:00 05/22/17 11:41 Colace - PO 100 mg BID ELENITA Administration Enoxaparin Sodium 40 mg 05/21/17 10:00 05/22/17 10:45 Lovenox - SQ 40 mg DAILY ELENITA Administration Furosemide 20 mg 05/21/17 10:00 05/22/17 10:45 Lasix - PO 20 mg DAILY ELENITA Administration Isosorbide Mononitrate 30 mg 05/22/17 10:00 05/22/17 10:45 Imdur - PO 30 mg DAILY ELENITA Administration Losartan Potassium 25 mg 05/21/17 10:00 05/22/17 10:45 Cozaar - PO 25 mg DAILY ELENITA Administration Metoprolol Tartrate 25 mg 05/22/17 10:00 05/22/17 10:45 Lopressor - PO 25 mg BID ELENITA Administration Non-Formulary Medication 5 mg 05/21/17 10:00 Selegiline Hcl [Selegiline Hcl] PO BID ELENITA Pantoprazole Sodium 20 mg 05/21/17 10:00 05/22/17 10:45 Protonix - PO 20 mg DAILY ELENITA Administration Ranolazine 500 mg 05/21/17 10:00 05/22/17 10:45 Ranexa - PO 500 mg BID ELENITA Administration PE: per resident's note ASSESSMENT AND PLAN: 89 yo M h/o Parkinson's disease on carvidopa/levodopa x 7 years presents with inability to stand x 1 day. # Acute generalized weakness continues with inability to stand up or ambulate: needs 2 people assist . will get PT to evaluate the patient. # b/l LE edema improving s/p CAD w/ stents: on lasix and ECHO.ordered Cardiology consult discussed with # HTN: continue toprol, imdur, losartan, lasix # CAD, angina pectoris: continue asa, ranexa # Parkinson's Disease: continue carbidopa/levadopa and selegeline ,His neurologist (Dr. Gordon @ [place]). 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 His Proxy. is Mr. Nassar who is his cousin [phone] out of [facility]. Patient is needing 2 people assist. Made the patient inpatient for the reasons above.
--- NOTE | 2017-05-22 13:38 | PN ---
Progress Note (short form) - Note Progress Note: 89 year old male known case of CAD, angina pectoris, S/P PCI/Stenting, s/p CHF, Parkinsonism and hypertension admitted with unsteady gait. Patient's better, no chest pain or discomfort, being treated for hypmagnesemia. BP is stable. Active Medications Aspirin (Asa -) 81 mg PO DAILY [facility] Last Admin: 05/22/17 10:45 Dose: 81 mg Atorvastatin Calcium (Lipitor -) 10 mg PO DAILY [facility] Last Admin: 05/22/17 10:45 Dose: 10 mg Carbidopa/Levodopa (Sinemet 25/100 -) 1 each PO TID [facility] Docusate Sodium (Colace -) 100 mg PO BID [facility] Last Admin: 05/22/17 11:41 Dose: 100 mg Enoxaparin Sodium (Lovenox -) 40 mg SQ DAILY [facility] Last Admin: 05/22/17 10:45 Dose: 40 mg Furosemide (Lasix -) 20 mg PO DAILY [facility] Last Admin: 05/22/17 10:45 Dose: 20 mg Isosorbide Mononitrate (Imdur -) 30 mg PO DAILY [facility] Last Admin: 05/22/17 10:45 Dose: 30 mg Losartan Potassium (Cozaar -) 25 mg PO DAILY [facility] Last Admin: 05/22/17 10:45 Dose: 25 mg Metoprolol Tartrate (Lopressor -) 25 mg PO BID [facility] Last Admin: 05/22/17 10:45 Dose: 25 mg Non-Formulary Medication (Selegiline Hcl [Selegiline Hcl]) 5 mg PO BID [facility] Pantoprazole Sodium (Protonix -) 20 mg PO DAILY [facility] Last Admin: 05/22/17 10:45 Dose: 20 mg Ranolazine (Ranexa -) 500 mg PO BID [facility] Last Admin: 05/22/17 10:45 Dose: 500 mg 89 year old male in no acute distress, no pallor, cyanosis, clubbing or jaundice. Last Vital Signs Temp Pulse Resp BP Pulse Ox 98.4 F 72 19 146/72 99 05/22/17 10:43 05/22/17 10:43 05/22/17 10:43 05/22/17 10:43 05/22/17 03:00 NECK: Supple, no JVD, carotids 2+, no bruits heard. HEART: PMI in the 5th ICS, on heaves or thrills, JEFFERY II/ 2nd rt ICS ending in early systole, no diastolic murmur heard. LUNGS: Clear on auscultation. ABDOMEN: Soft, non tender, no organomegaly or masses felt. EXTREMITIES: No dependent edema or calf tenderness. CBC, BMP 05/20/17 17:30 05/20/17 17:30 IMPRESSION: 1. Gait abnormality most likely related to parkinsonism or postural hypotension. 2. CAD, s/p PCI/ stenting, stable angina pectoris. 3. H/o hypertension. 4. S/p CHF. RECOMMENDATIONS: 1. Increase ambulation. 2. Check BP supine and standing. 3. Bedside PT. 4. Out patient PT at a center that provides physiotherapy for parkinsonism.
--- NOTE | 2017-05-23 04:53 | PN ---
Physical Exam: SUBJECTIVE: Patient seen and examined at bedside.no acute events over night ,no new complaints, he is able to stand with help of 2 people. OBJECTIVE: Vital Signs Period Temp Pulse Resp BP Sys/Barrett Pulse Ox Last 24 Hr 97.8 F-978 F 58-80 19-20 103-155/51-74 98-99 GENERAL: The patient is awake, alert, and fully oriented, in no acute distress. 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 EYES: PERRL, extraocular movements intact, sclera anicteric, conjunctiva clear. ENT: dry mucous membranes. NECK: supple. LUNGS: Breath sounds equal, clear to auscultation bilaterally, no wheezes, no crackles, no accessory muscle use. HEART: Regular rate and rhythm, S1, S2 without murmur, rub or gallop. ABDOMEN: Soft, nontender, nondistended, normoactive bowel sounds, no guarding, no rebound, EXTREMITIES: 2+ pulses, warm, well-perfused, trace edema. strength 5/5 right arm , 4/5 left arm , sensation intact , LE strength 5/5 , sensation intact , NEUROLOGICAL: Cranial nerves II through XII grossly intact. Normal speech, gait not observed. PSYCH: Normal mood, normal affect. SKIN: Warm, dry, normal turgor, multiple skin tags all over the body. Laboratory Results - last 24 hr 05/22/17 08:00 Phosphorus 2.9 Magnesium 1.7 L Active Medications Generic Name Dose Route Start Last Admin Trade Name Freq PRN Reason Stop Dose Admin Aspirin 81 mg 05/21/17 10:00 05/22/17 10:45 Asa - PO 81 mg DAILY ELENITA Administration Atorvastatin Calcium 10 mg 05/21/17 10:00 05/22/17 10:45 Lipitor - PO 10 mg DAILY ELENITA Administration Carbidopa/Levodopa 1 each 05/22/17 14:00 05/22/17 21:32 Sinemet 25/100 - PO 1 each TID ELENITA Administration Docusate Sodium 100 mg 05/22/17 11:00 05/22/17 21:32 Colace - PO 100 mg BID ELENITA Administration Enoxaparin Sodium 40 mg 05/21/17 10:00 05/22/17 10:45 Lovenox - SQ 40 mg DAILY ELENITA Administration Furosemide 20 mg 05/21/17 10:00 05/22/17 10:45 Lasix - PO 20 mg DAILY ELENITA Administration Isosorbide Mononitrate 30 mg 05/22/17 10:00 05/22/17 10:45 Imdur - PO 30 mg DAILY ELENITA Administration Losartan Potassium 25 mg 05/21/17 10:00 05/22/17 10:45 Cozaar - PO 25 mg DAILY ELENITA Administration Metoprolol Tartrate 25 mg 05/22/17 10:00 05/22/17 21:32 Lopressor - PO 25 mg BID ELENITA Administration Non-Formulary Medication 5 mg 05/21/17 10:00 Selegiline Hcl [Selegiline Hcl] PO BID ELENITA Pantoprazole Sodium 20 mg 05/21/17 10:00 05/22/17 10:45 Protonix - PO 20 mg DAILY ELENITA Administration Ranolazine 500 mg 05/21/17 10:00 05/22/17 21:32 Ranexa - PO 500 mg BID ELENITA Administration CBC, BMP 05/23/17 08:15 EKG 05/21/2017 : NSR , with first degree av block , No ST, T wave changes , QT 416. CXR 05/21/2017 No Acute pathology Head CT: 05/22/2017 Pending reading ASSESSMENT/PLAN: 89 y.o. male with a PMH of Parkinson's Disease (w/residual L sided weakness) HLD and HTN who presents to our ED today with a c/o weakness, lightheadedness and intermittent vertigo. # Inability to stand/ambulate: * Ambulate w/ cane or walker with minimal assistance at baseline. * Likely 2/2 Parkinson's disease flare-up. * caridopa/leva dose was increased 6 months ago by his neurologist (Dr. Gordon @ [place]). * No EKG was found in ED, stat EKG ordered. Cycle troponins. * Will consult in-house neurology * Head CT ordered pending reading * PT eval. * Fall precautions * Meclezine PRN for vertgo per neurologist # b/l LE edema s/p CAD w/ stents: * worsening edema past few weeks, * cont. lasix * order ECHO. * Cardiology consult. # Hypomagnesia, * MG today 1.7 * Replenish Mg sulfate IVBP 1 g once , * repeat mg level in AM #Leg cramps: likely 2/2 parkinson's disease. unlikely due to lipitor. # Fullness in R ear: pt unable to describe sx in detail. * ENT consult. #HTN: * continue toprol, imdur, losartan, lasix # CAD, angina pectoris: * continue asa, ranexa # Parkinson's Disease: * continue carbidopa/levadopa and selegeline * Does of Sinemet increased to [address] vizcarra recommendations #FEN: * no fluid. * replete electrolytes PRN * sodium controlled diet, #DVT ppx: * heparin SQ TID #Dispo: * Once cleared by neurology, ENT, Cards, patient may need to be discharged to rehab. Visit type - Emergency Visit Emergency Visit: Yes ED Registration Date: 05/21/17 Care time: The patient presented to the Emergency Department on the above date and was hospitalized for further evaluation of their emergent condition. - New Patient This patient is new to me today: No - Critical Care Critical Care patient: No - Discharge Referral Referred to [facility] Med P.C.: No
[2017-05-23] MEDS: CARBIDOPA/LEVODOPA 25/100 TABLET (FP) PO SCH ×3 (05:14→21:31)
[2017-05-23 08:51] LABS: BASO % 0.5 % (0-2.0); EOS % 3.3 % (0-4.5); HEMATOCRIT 35.6 % (35.4-49); HEMOGLOBIN 11.8 GM/dL (11.7-16.9); LYMPH % 21.3 % (8-40); MCH 31.4 pg (25.7-33.7); MCHC 33.1 g/dl (32.0-35.9); MEAN CELL VOLUME 94.8 fl (80-96); MEAN PLT VOLUME 8.1 fl (7.5-11.1); MONO % 9.8 % (3.8-10.2); NEUT % 65.1 % (42.8-82.8); PLATELET COUNT 169 K/MM3 (134-434); RBC 3.76 M/mm3 (4.00-5.60); WHITE BLOOD COUNT 6.7 K/mm3 (4.0-10.0)
[2017-05-23 09:16] LABS: ALBUMIN 2.8 g/dl (3.4-5.0); ANION GAP 4 (8-16); BILIRUBIN,TOTAL 0.9 mg/dL (0.2-1.0); BLOOD UREA NITROGEN 23 mg/dL (7-18); CALCIUM 8.3 mg/dL (8.5-10.1); CHLORIDE 109 mmol/L (98-107); CO2 30 mmol/L (21-32); CREATININE 1.1 mg/dL (0.7-1.3); GLUCOSE,RANDOM 103 mg/dL (74-106); POTASSIUM 3.6 mmol/L (3.5-5.1); SGOT/AST 14 U/L (15-37); SGPT/ALT 9 U/L (12-78); SODIUM 143 mmol/L (136-145); TOT PROT 5.3 g/dl (6.4-8.2)
[2017-05-23 09:17] LABS: ALK PHOS 70 U/L (45-117)
--- NOTE | 2017-05-23 10:38 | PN ---
Progress Note (short form) - Note Progress Note: Neurology History of Present Illness Patient is an 89 y.o. male with a PMH of Parkinson's Disease (w/residual L sided weakness) DLD and HTN who presents to our ED today with a c/o weakness, lightheadedness and intermittent vertigo. Patient states he was in his usual state of health this morning until he tried to stand up after eating breakfast at which time he felt lightheaded, diaphoretic and weak. Patient denies any associated chest pain or dyspnea. Patient stated the lightheadedness persisted prompting his visit to the ED. He did not have imaging of the head completed in ER and therefore ordered CT scan. Completed CT head, did not show acute changes. Images reviewed. Physcial therapy ordered. Sinemet was increased. During my interaction, slightly more awake and alert this AM. Cooperating ultrasound teach as echo being completed. Active Medications Aspirin (Asa -) 81 mg PO DAILY [facility] Last Admin: 05/22/17 10:45 Dose: 81 mg Atorvastatin Calcium (Lipitor -) 10 mg PO DAILY [facility] Last Admin: 05/22/17 10:45 Dose: 10 mg Carbidopa/Levodopa (Sinemet 25/100 -) 1 each PO TID [facility] Last Admin: 05/23/17 05:14 Dose: 1 each Docusate Sodium (Colace -) 100 mg PO BID [facility] Last Admin: 05/22/17 21:32 Dose: 100 mg Enoxaparin Sodium (Lovenox -) 40 mg SQ DAILY [facility] Last Admin: 05/22/17 10:45 Dose: 40 mg Furosemide (Lasix -) 20 mg PO DAILY [facility] Last Admin: 05/22/17 10:45 Dose: 20 mg Isosorbide Mononitrate (Imdur -) 30 mg PO DAILY [facility] Last Admin: 05/22/17 10:45 Dose: 30 mg Losartan Potassium (Cozaar -) 25 mg PO DAILY [facility] Last Admin: 05/22/17 10:45 Dose: 25 mg Metoprolol Tartrate (Lopressor -) 25 mg PO BID [facility] Last Admin: 05/22/17 21:32 Dose: 25 mg Non-Formulary Medication (Selegiline Hcl [Selegiline Hcl]) 5 mg PO BID [facility] Pantoprazole Sodium (Protonix -) 20 mg PO DAILY [facility] Last Admin: 05/22/17 10:45 Dose: 20 mg Ranolazine (Ranexa -) 500 mg PO BID [facility] Last Admin: 05/22/17 21:32 Dose: 500 mg *Physical Exam Vital Signs Temperature 97.5 F L 05/23/17 06:00 Pulse Rate 53 L 05/23/17 06:00 Respiratory Rate 18 05/23/17 06:00 Blood Pressure 119/55 05/23/17 06:00 O2 Sat by Pulse Oximetry (%) 99 05/22/17 22:00 - Physical Exam General Appearance: Yes: Nourished, Thin HEENT: positive: EOMI, EMILY, Thrush. negative: Pharyngeal Erythema, TM Bulging , TM Dull, TM Erythema Neck: positive: Supple Respiratory/Chest: positive: Lungs Clear Cardiovascular: positive: S1, S2, Edema (3+ pitting edema B/L) Extremity: positive: Normal Capillary Refill, Normal Inspection Integumentary: positive: Other (seborrheic keratosis on R temporal area, B/L LE) Neuro: Awake, alert, CN appear intact, moves ext, cogwheeling R>L, sensory intact, not pariticipating in confrontation testing, gait deferred CBCD WBC 6.7 K/mm3 (4.0-10.0) 05/23/17 08:15 RBC 3.76 M/mm3 (4.00-5.60) L 05/23/17 08:15 Hgb 11.8 GM/dL (11.7-16.9) 05/23/17 08:15 Hct 35.6 % (35.4-49) 05/23/17 08:15 MCV 94.8 fl (80-96) 05/23/17 08:15 MCHC 33.1 g/dl (32.0-35.9) 05/23/17 08:15 RDW 14.0 % (11.9-15.9) 05/23/17 08:15 Plt Count 169 K/MM3 (134-434) 05/23/17 08:15 MPV 8.1 fl (7.5-11.1) 05/23/17 08:15 CMP Sodium 143 mmol/L (136-145) 05/23/17 08:15 Potassium 3.6 mmol/L (3.5-5.1) 01/22/18 08:15 Chloride 109 mmol/L (98-107) H 05/23/17 08:15 Carbon Dioxide 30 mmol/L (21-32) 05/23/17 08:15 Anion Gap 4 (8-16) L 05/23/17 08:15 BUN 23 mg/dL (7-18) H 05/23/17 08:15 Creatinine 1.1 mg/dL (0.7-1.3) 05/23/17 08:15 Creat Clearance w eGFR > 60 (>60) 05/23/17 08:15 Calcium 8.3 mg/dL (8.5-10.1) L 05/23/17 08:15 Total Bilirubin 0.9 mg/dL (0.2-1.0) D 05/23/17 08:15 AST 14 U/L (15-37) L 05/23/17 08:15 ALT 9 U/L (12-78) L 05/23/17 08:15 Alkaline Phosphatase 70 U/L (45-117) D 05/23/17 08:15 Total Protein 5.3 g/dl (6.4-8.2) L 05/23/17 08:15 Albumin 2.8 g/dl (3.4-5.0) L 05/23/17 08:15 CT head completed Plan: 89 y.o. male with a PMH of Parkinson's Disease (w/residual L sided weakness) DLD and HTN who presents to our ED today with a c/o weakness, lightheadedness and intermittent vertigo. Patient states he was in his usual state of health this morning until he tried to stand up after eating breakfast at which time he felt lightheaded, diaphoretic and weak. Patient denies any associated chest pain or dyspnea. Patient stated the lightheadedness persisted prompting his visit to the ED. CT head stable. Physcial therapy ordered. Maintain adequate hydration, fall precautions. Monitor blood pressure, maintain normotensive range. Sinement increased to 1mg three times a day, slightly more interactive toady.
[2017-05-23] MEDS: RANOLAZINE E.R. 500 MG TABLET (FP) PO SCH ×2 (11:05→21:31)
[2017-05-23] MEDS: ASPIRIN 81 MG CHEWABLE TABLETS PO SCH (11:05)
[2017-05-23] MEDS: ENOXAPARIN NA (PORCINE) 40 MG/0.4 ML DISP.SYRIN SQ SCH (11:05)
[2017-05-23] MEDS: PANTOPRAZOLE 20 MG TABLET (FP) PO SCH (11:06)
[2017-05-23] MEDS: ISOSORBIDE MONONITRATE 30 MG TAB.SR.24H (FP) PO SCH (11:06)
[2017-05-23] MEDS: LOSARTAN POTASSIUM 25 MG TABLET PO SCH (11:06)
[2017-05-23] MEDS: METOPROLOL TARTRATE 25 MG TABLET (FP) PO SCH ×2 (11:06→21:31)
[2017-05-23] MEDS: DOCUSATE SODIUM 100 MG CAPSULE (FP) PO SCH ×2 (11:06→21:31)
[2017-05-23] MEDS: ATORVASTATIN CA 10 MG TABLET (FP) PO SCH (11:06)
[2017-05-23] MEDS: FUROSEMIDE 20 MG TABLET (FP) PO SCH (11:06)
[2017-05-23] MEDS: CEFTRIAXONE 1 G/50 ML PREMIX 50 ML IVPB SCH (15:29)
--- NOTE | 2017-05-23 21:45 | PN ---
Teaching Attending Note Name of Resident: Kofi Dewitt ATTENDING PHYSICIAN STATEMENT I saw and evaluated the patient. I reviewed the resident's note and discussed the case with the resident. I agree with the resident's findings and plan as documented. SUBJECTIVE: Patient is feeling better , is sitting on the chair with no acute distress. OBJECTIVE: Vital Signs Temperature 97.8 F 05/23/17 18:00 Pulse Rate 56 L 05/23/17 18:00 Respiratory Rate 17 05/23/17 18:00 Blood Pressure 97/45 05/23/17 18:00 O2 Sat by Pulse Oximetry (%) 97 05/23/17 20:36 CBCD WBC 6.7 K/mm3 (4.0-10.0) 05/23/17 08:15 RBC 3.76 M/mm3 (4.00-5.60) L 05/23/17 08:15 Hgb 11.8 GM/dL (11.7-16.9) 05/23/17 08:15 Hct 35.6 % (35.4-49) 05/23/17 08:15 MCV 94.8 fl (80-96) 05/23/17 08:15 MCHC 33.1 g/dl (32.0-35.9) 05/23/17 08:15 RDW 14.0 % (11.9-15.9) 05/23/17 08:15 Plt Count 169 K/MM3 (134-434) 05/23/17 08:15 MPV 8.1 fl (7.5-11.1) 05/23/17 08:15 CMP Sodium 143 mmol/L (136-145) 05/23/17 08:15 Potassium 3.6 mmol/L (3.5-5.1) 05/23/17 08:15 Chloride 109 mmol/L (98-107) H 05/23/17 08:15 Carbon Dioxide 30 mmol/L (21-32) 05/23/17 08:15 Anion Gap 4 (8-16) L 05/23/17 08:15 BUN 23 mg/dL (7-18) H 05/23/17 08:15 Creatinine 1.1 mg/dL (0.7-1.3) 05/23/17 08:15 Creat Clearance w eGFR > 60 (>60) 05/23/17 08:15 Random Glucose 103 mg/dL (74-106) 05/23/17 08:15 Calcium 8.3 mg/dL (8.5-10.1) L 05/23/17 08:15 Total Bilirubin 0.9 mg/dL (0.2-1.0) D 05/23/17 08:15 AST 14 U/L (15-37) L 05/23/17 08:15 ALT 9 U/L (12-78) L 05/23/17 08:15 Alkaline Phosphatase 70 U/L (45-117) D 05/23/17 08:15 Total Protein 5.3 g/dl (6.4-8.2) L 05/23/17 08:15 Albumin 2.8 g/dl (3.4-5.0) L 05/23/17 08:15 CARDIAC ENZYMES Creatine Kinase 121 IU/L (39-308) 05/20/17 17:30 Troponin I 0.03 ng/ml (0.00-0.05) 05/21/17 08:00 Current Medications Generic Name Dose Route Start Last Admin Trade Name Freq PRN Reason Stop Dose Admin Aspirin 81 mg 05/21/17 10:00 05/23/17 11:05 Asa - PO 81 mg DAILY ELENITA Administration Atorvastatin Calcium 10 mg 05/21/17 10:00 05/23/17 11:06 Lipitor - PO 10 mg DAILY ELENITA Administration Carbidopa/Levodopa 1 each 05/22/17 14:00 05/23/17 21:31 Sinemet 25/100 - PO 1 each TID ELENITA Administration Docusate Sodium 100 mg 05/22/17 11:00 05/23/17 21:31 Colace - PO 100 mg BID ELENITA Administration Enoxaparin Sodium 40 mg 05/21/17 10:00 05/23/17 11:05 Lovenox - SQ 40 mg DAILY ELENITA Administration Furosemide 20 mg 05/21/17 10:00 05/23/17 11:06 Lasix - PO 20 mg DAILY ELENITA Administration CEFTRIAXONE 1 G/50 ML PREMIX 50 mls @ 100 mls/hr 05/23/17 14:30 05/23/17 15: 29 Ceftriaxone 1 Gm-D5w Bag IVPB 100 mls/hr DAILY ELENITA Administration Isosorbide Mononitrate 30 mg 05/22/17 10:00 05/23/17 11:06 Imdur - PO 30 mg DAILY ELENITA Administration Losartan Potassium 25 mg 05/21/17 10:00 05/23/17 11:06 Cozaar - PO 25 mg DAILY ELENITA Administration Metoprolol Tartrate 25 mg 05/22/17 10:00 05/23/17 21:31 Lopressor - PO 25 mg BID ELENITA Administration Non-Formulary Medication 5 mg 05/21/17 10:00 Selegiline Hcl [Selegiline Hcl] PO BID [facility] Pantoprazole Sodium 20 mg 05/21/17 10:00 05/23/17 11:06 Protonix - PO 20 mg DAILY ELENITA Administration Ranolazine 500 mg 05/21/17 10:00 05/23/17 21:31 Ranexa - PO 500 mg BID ELENITA Administration Home Medications Medication Instructions Recorded Atorvastatin Ca [Lipitor] 10 mg PO DAILY 07/15/14 Carbidopa/Levodopa [Carbidopa-Levo 0 each PO DAILY 07/15/14 25-100 mg Odt] Furosemide [Lasix -] 20 mg PO DAILY 07/15/14 Isosorbide Mononitrate [Isosorbide 60 mg PO DAILY 07/15/14 Mononitrate ER] Losartan Potassium 25 mg PO DAILY 07/15/14 Metoprolol Tartrate 50 mg PO DAILY 07/15/14 Omeprazole [Prilosec] 20 mg PO DAILY 07/15/14 Ranolazine [Ranexa] 500 mg PO BID 07/15/14 Selegiline HCl 5 mg PO BID 07/15/14 Aspirin [ASA -] 81 mg PO DAILY #30 tab.chew 07/19/14 PE: per resident's note sitting on the chair with no acute distress CVS: S1S2 positive, NSR LE: less edema 1 plus now, bl ASSESSMENT AND PLAN: 89 yo M h/o Parkinson's disease on carvidopa/levodopa x 7 years presents with inability to stand x 1 day. # Acute generalized weakness improving with hx of Parkinsonism continues , PT will evaluate the patient again in am , will get PT to evaluate the patient again in am. still having difficulty with ambulation. # b/l LE edema improving s/p CAD w/ stents: on lasix Cardiology consult discussed with # HTN: continue toprol, imdur was reduced from 60mg to 30mg , losartan, lasix # CAD, angina pectoris: continue asa, ranexa # Parkinson's Disease: continue carbidopa/levadopa and selegeline ,His neurologist (Dr. Gordon @ [place]). 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 His Proxy. is Mr. Nassar who is his cousin [phone] out of [facility]. possible dx in am to rehab.
--- NOTE | 2017-05-23 21:46 | PN ---
Progress Note (short form) - Note Progress Note: 89 year old male known case of CAD, angina pectoris, S/P PCI/Stenting, s/p CHF, Parkinsonism and hypertension admitted with unsteady gait. No chest pain or SOB, no palpitations or dizziness, no syncope. Active Medications Generic Name Dose Route Start Last Admin Trade Name Freq PRN Reason Stop Dose Admin Aspirin 81 mg 05/21/17 10:00 05/23/17 11:05 Asa - PO 81 mg DAILY [facility] Administration Atorvastatin Calcium 10 mg 05/21/17 10:00 05/23/17 11:06 Lipitor - PO 10 mg DAILY [facility] Administration Carbidopa/Levodopa 1 each 05/22/17 14:00 05/23/17 21:31 Sinemet 25/100 - PO 1 each TID [facility] Administration Docusate Sodium 100 mg 05/22/17 11:00 05/23/17 21:31 Colace - PO 100 mg BID [facility] Administration Enoxaparin Sodium 40 mg 05/21/17 10:00 05/23/17 11:05 Lovenox - SQ 40 mg DAILY [facility] Administration Furosemide 20 mg 05/21/17 10:00 05/23/17 11:06 Lasix - PO 20 mg DAILY [facility] Administration CEFTRIAXONE 1 G/50 ML PREMIX 50 mls @ 100 mls/hr 05/23/17 14:30 05/23/17 15: 29 Ceftriaxone 1 Gm-D5w Bag IVPB 100 mls/hr DAILY [facility] Administration Isosorbide Mononitrate 30 mg 05/22/17 10:00 05/23/17 11:06 Imdur - PO 30 mg DAILY [facility] Administration Losartan Potassium 25 mg 05/21/17 10:00 05/23/17 11:06 Cozaar - PO 25 mg DAILY [facility] Administration Metoprolol Tartrate 25 mg 05/22/17 10:00 05/23/17 21:31 Lopressor - PO 25 mg BID [facility] Administration Non-Formulary Medication 5 mg 05/21/17 10:00 Selegiline Hcl [Selegiline Hcl] PO BID [facility] Pantoprazole Sodium 20 mg 05/21/17 10:00 05/23/17 11:06 Protonix - PO 20 mg DAILY [facility] Administration Ranolazine 500 mg 05/21/17 10:00 05/23/17 21:31 Ranexa - PO 500 mg BID [facility] Administration 89 year old male in no acute distress, no pallor, cyanosis, clubbing or jaundice. Last Vital Signs Temp Pulse Resp BP Pulse Ox 97.8 F 56 L 17 97/45 97 05/23/17 18:00 05/23/17 18:00 05/23/17 18:00 05/23/17 18:00 05/23/17 20:36 NECK: Supple, no JVD, carotids 2+, no bruits heard. HEART: PMI in the 5th ICS, on heaves or thrills, JEFFERY II/ 2nd rt ICS ending in early systole, no diastolic murmur heard. LUNGS: Clear on auscultation. ABDOMEN: Soft, non tender, no organomegaly or masses felt. EXTREMITIES: No dependent edema or calf tenderness. CBC, BMP 05/23/17 08:15 05/23/17 08:15 IMPRESSION: 1. Gait abnormality most likely related to parkinsonism and postural hypotension. 2. CAD, s/p PCI/ stenting, stable angina pectoris. 3. H/o hypertension. 4. S/p CHF. RECOMMENDATIONS: 1. Increase ambulation. 2. Check BP supine and standing. 3. If there is postural hypotension, dose of imdur may have to be reduced. 4. Out patient PT at a center that provides physiotherapy for parkinsonism.
--- NOTE | 2017-05-23 21:53 | EKG ---
Test Reason : Blood Pressure : / mmHG Vent. Rate : 057 BPM Atrial Rate : 063 BPM P-R Int : 000 ms QRS Dur : 104 ms QT Int : 454 ms P-R-T Axes : 000 023 022 degrees QTc Int : 441 ms PROBABLE ATRIAL FIBRILLATION WITH OCCASIONAL PREMATURE VENTRICULAR COMPLEXES NONSPECIFIC ST ABNORMALITY ABNORMAL ECG WHEN COMPARED WITH ECG OF 28-SEP-2014 20:42, ATRIAL FIBRILLATION HAS REPLACED SINUS RHYTHM Confirmed by GUS MACK MD ([id number]) on 05/23/2017 9:52:55 PM Referred By: Confirmed By:GUS MACK MD
[2017-05-24] MEDS: CARBIDOPA/LEVODOPA 25/100 TABLET (FP) PO SCH ×2 (05:57→14:01)
--- NOTE | 2017-05-24 06:36 | PN ---
Physical Exam: SUBJECTIVE: Patient seen and examined at bedside, no acute events over night , up in bed in no acute distress, walk with PT yesterday, did not move his bowel for 2 days. OBJECTIVE: Vital Signs Period Temp Pulse Resp BP Sys/Barrett Pulse Ox Last 24 Hr 97.5 F-97.8 F 56-59 17-18 91-140/45-55 97-97 GENERAL: The patient is awake, alert, and fully oriented, in no acute distress. 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 multiple skin keratosis EYES: sclera anicteric, conjunctiva clear. ENT: moist mucous membranes. NECK: supple. LUNGS: Breath sounds equal, clear to auscultation bilaterally, no wheezes, no crackles, no accessory muscle use. HEART: Regular rate and rhythm, S1, S2 without murmur, rub or gallop. ABDOMEN: Soft, nontender, nondistended, normoactive bowel sounds, no guarding, no rebound, EXTREMITIES: 2+ pulses, warm, well-perfused, trace edema. strength 5/5 right arm , 4/5 left arm , sensation intact , LE strength 5/5 , sensation intact , NEUROLOGICAL: Cranial nerves II through XII grossly intact. Normal speech, gait not observed. PSYCH: Normal mood, normal affect. SKIN: Warm, dry, normal turgor, multiple skin tags, keratosis all over the body. Laboratory Results - last 24 hr 05/23/17 05/23/17 08:15 08:15 WBC 6.7 RBC 3.76 L Hgb 11.8 Hct 35.6 MCV 94.8 MCH 31.4 MCHC 33.1 RDW 14.0 Plt Count 169 MPV 8.1 Neutrophils % 65.1 Lymphocytes % 21.3 D Monocytes % 9.8 Eosinophils % 3.3 Basophils % 0.5 Sodium 143 Potassium 3.6 Chloride 109 H Carbon Dioxide 30 Anion Gap 4 L BUN 23 H Creatinine 1.1 Creat Clearance w eGFR > 60 Random Glucose 103 Calcium 8.3 L Magnesium 2.0 Total Bilirubin 0.9 D AST 14 L ALT 9 L Alkaline Phosphatase 70 D Total Protein 5.3 L Albumin 2.8 L Active Medications Generic Name Dose Route Start Last Admin Trade Name Freq PRN Reason Stop Dose Admin Aspirin 81 mg 05/21/17 10:00 05/23/17 11:05 Asa - PO 81 mg DAILY ELENITA Administration Atorvastatin Calcium 10 mg 05/21/17 10:00 05/23/17 11:06 Lipitor - PO 10 mg DAILY ELENITA Administration Carbidopa/Levodopa 1 each 05/22/17 14:00 05/24/17 05:57 Sinemet 25/100 - PO 1 each TID ELENITA Administration Docusate Sodium 100 mg 05/22/17 11:00 05/23/17 21:31 Colace - PO 100 mg BID ELENITA Administration Enoxaparin Sodium 40 mg 05/21/17 10:00 05/23/17 11:05 Lovenox - SQ 40 mg DAILY ELENITA Administration Furosemide 20 mg 05/21/17 10:00 05/23/17 11:06 Lasix - PO 20 mg DAILY ELENITA Administration CEFTRIAXONE 1 G/50 ML PREMIX 50 mls @ 100 mls/hr 05/23/17 14:30 05/23/17 15: 29 Ceftriaxone 1 Gm-D5w Bag IVPB 100 mls/hr DAILY ELENITA Administration Isosorbide Mononitrate 30 mg 05/22/17 10:00 05/23/17 11:06 Imdur - PO 30 mg DAILY ELENITA Administration Losartan Potassium 25 mg 05/21/17 10:00 05/23/17 11:06 Cozaar - PO 25 mg DAILY ELENITA Administration Metoprolol Tartrate 25 mg 05/22/17 10:00 05/23/17 21:31 Lopressor - PO 25 mg BID ELENITA Administration Non-Formulary Medication 5 mg 05/21/17 10:00 Selegiline Hcl [Selegiline Hcl] PO BID ELENITA Pantoprazole Sodium 20 mg 05/21/17 10:00 05/23/17 11:06 Protonix - PO 20 mg DAILY ELENITA Administration Ranolazine 500 mg 05/21/17 10:00 05/23/17 21:31 Ranexa - PO 500 mg BID ELENITA Administration CBC, BMP 05/23/17 08:15 05/23/17 08:15 ASSESSMENT/PLAN: EKG 05/21/2017 : NSR , with first degree av block , No ST, T wave changes , QT 416. CXR 05/21/2017 No Acute pathology Head CT: 05/22/2017 No Acute intracranial pathology . ASSESSMENT/PLAN: 89 y.o. male with a PMH of Parkinson's Disease (w/residual L sided weakness) HLD and HTN who presents to our ED today with a c/o weakness, lightheadedness and intermittent vertigo. # Inability to stand/ambulate: * Ambulate w/ cane or walker with minimal assistance at baseline. * Likely 2/2 Parkinson's disease flare-up. * caridopa/leva dose was increased 6 months ago by his neurologist (Dr. Gordon @ [facility]). * EKG with no St, T wave changes . Cycle troponins negative . * neurology on board * Head CT ordered negative for intacranial acute pathology * PT eval. * Fall precautions * Meclezine PRN for vertigo per neurologist # UTI * Ux shows Ecoli , enterococcus fecalis * Ceftriaxone 1 g daily IVBP X 7days # constipation * Colace 100 mg PO bID * Add miralax 17 mg PO BID * # b/l LE edema s/p CAD w/ stents: , improved * worsening edema past few weeks, * cont. lasix * order ECHO. EF 54.7, no wall abnormalities * Cardiology consult. # Hypomagnesia,corrected * MG today 1.7 ,...> 2 yesterday * Replenish Mg sulfate IVBP 1 g X2 , * repeat mg level in AM #Leg cramps: likely 2/2 parkinson's disease. unlikely due to lipitor. # Fullness in R ear: pt unable to describe sx in detail. * ENT consult. #HTN: * continue toprol, imdur was reduced from 60mg to 30mg , losartan, lasix # CAD, angina pectoris: * continue asa, ranexa # Parkinson's Disease: * continue carbidopa/levadopa and selegeline per Neurology recommendation * Does of Sinemet increased to [address] vizcarra recommendations #FEN: * no fluid. * replete electrolytes PRN * sodium controlled diet, #DVT ppx: * heparin SQ TID #Dispo: * Once cleared by neurology, ENT, Cards, patient may need to be discharged to rehab. Visit type - Emergency Visit Emergency Visit: Yes ED Registration Date: 05/21/17 Care time: The patient presented to the Emergency Department on the above date and was hospitalized for further evaluation of their emergent condition. - New Patient This patient is new to me today: No - Critical Care Critical Care patient: No - Discharge Referral Referred to [facility] Med P.C.: No
[2017-05-24 08:31] LABS: BASO % 0.6 % (0-2.0); HEMATOCRIT 35.5 % (35.4-49); HEMOGLOBIN 11.9 GM/dL (11.7-16.9); LYMPH % 21.1 % (8-40); MCH 31.6 pg (25.7-33.7); MCHC 33.6 g/dl (32.0-35.9); MEAN CELL VOLUME 94.1 fl (80-96); MEAN PLT VOLUME 8.3 fl (7.5-11.1); NEUT % 64.3 % (42.8-82.8); PLATELET COUNT 185 K/MM3 (134-434); RBC 3.77 M/mm3 (4.00-5.60); RDW 13.5 % (11.9-15.9); WHITE BLOOD COUNT 6.8 K/mm3 (4.0-10.0)
[2017-05-24 08:50] LABS: ALBUMIN 3.1 g/dl (3.4-5.0); ANION GAP 11 (8-16); BLOOD UREA NITROGEN 27 mg/dL (7-18); CALCIUM 9.1 mg/dL (8.5-10.1); CHLORIDE 106 mmol/L (98-107); CO2 27 mmol/L (21-32); GLUCOSE,RANDOM 109 mg/dL (74-106); POTASSIUM 3.7 mmol/L (3.5-5.1); SODIUM 144 mmol/L (136-145)
[2017-05-24 08:55] LABS: ALK PHOS 84 U/L (45-117); BILIRUBIN,TOTAL 0.8 mg/dL (0.2-1.0); CREATININE 1.2 mg/dL (0.7-1.3); PHOSPHOROUS 3.4 mg/dL (2.5-4.9); SGOT/AST 16 U/L (15-37); SGPT/ALT 14 U/L (12-78); TOT PROT 6.1 g/dl (6.4-8.2)
[2017-05-24] MEDS ORDERED: POLYETHYLENE GLYCOL 3350 119 GM BTL PO SCH (10:00)
[2017-05-24] MEDS ORDERED: PT OWN MED DRAWER 7, Y5N ONE (10:06)
[2017-05-24] MEDS: RANOLAZINE E.R. 500 MG TABLET (FP) PO SCH (10:14)
[2017-05-24] MEDS: METOPROLOL TARTRATE 25 MG TABLET (FP) PO SCH (10:14)
[2017-05-24] MEDS: ATORVASTATIN CA 10 MG TABLET (FP) PO SCH (10:14)
[2017-05-24] MEDS: PANTOPRAZOLE 20 MG TABLET (FP) PO SCH (10:15)
[2017-05-24] MEDS: CEFTRIAXONE 1 G/50 ML PREMIX 50 ML IVPB SCH (10:15)
[2017-05-24] MEDS: ENOXAPARIN NA (PORCINE) 40 MG/0.4 ML DISP.SYRIN SQ SCH (10:15)
[2017-05-24] MEDS: FUROSEMIDE 20 MG TABLET (FP) PO SCH (10:15)
[2017-05-24] MEDS: DOCUSATE SODIUM 100 MG CAPSULE (FP) PO SCH (10:15)
[2017-05-24] MEDS: ASPIRIN 81 MG CHEWABLE TABLETS PO SCH (10:15)
[2017-05-24] MEDS: LOSARTAN POTASSIUM 25 MG TABLET PO SCH (10:15)
[2017-05-24] MEDS: ISOSORBIDE MONONITRATE 30 MG TAB.SR.24H (FP) PO SCH (10:16)
--- NOTE | 2017-05-24 10:28 | PN ---
Progress Note (short form) - Note Progress Note: Neurology History of Present Illness Patient is an 89 y.o. male with a PMH of Parkinson's Disease (w/residual L sided weakness) DLD and HTN who presents to our ED today with a c/o weakness, lightheadedness and intermittent vertigo. Patient states he was in his usual state of health this morning until he tried to stand up after eating breakfast at which time he felt lightheaded, diaphoretic and weak. Patient denies any associated chest pain or dyspnea. Patient stated the lightheadedness persisted prompting his visit to the ED. He did not have imaging of the head completed in ER and therefore ordered CT scan. Completed CT head, did not show acute changes. Images reviewed. Physcial therapy ordered. Sinemet was increased and appears to have responded. More interactive today, following commands and improved movement slightly. Active Medications Aspirin (Asa -) 81 mg PO DAILY [facility] Last Admin: 05/24/17 10:15 Dose: 81 mg Atorvastatin Calcium (Lipitor -) 10 mg PO DAILY [facility] Last Admin: 05/24/17 10:14 Dose: 10 mg Carbidopa/Levodopa (Sinemet 25/100 -) 1 each PO TID [facility] Last Admin: 05/24/17 05:57 Dose: 1 each Docusate Sodium (Colace -) 100 mg PO BID [facility] Last Admin: 05/24/17 10:15 Dose: 100 mg Enoxaparin Sodium (Lovenox -) 40 mg SQ DAILY [facility] Last Admin: 05/24/17 10:15 Dose: 40 mg Furosemide (Lasix -) 20 mg PO DAILY [facility] Last Admin: 05/24/17 10:15 Dose: 20 mg CEFTRIAXONE 1 G/50 ML PREMIX (Ceftriaxone 1 Gm-D5w Bag) 50 mls @ 100 mls/hr IVPB DAILY [facility] Last Admin: 05/24/17 10:15 Dose: 100 mls/hr Isosorbide Mononitrate (Imdur -) 30 mg PO DAILY [facility] Last Admin: 05/24/17 10:16 Dose: 30 mg Losartan Potassium (Cozaar -) 25 mg PO DAILY [facility] Last Admin: 05/24/17 10:15 Dose: 25 mg Metoprolol Tartrate (Lopressor -) 25 mg PO BID [facility] Last Admin: 05/24/17 10:14 Dose: 25 mg Non-Formulary Medication (Selegiline Hcl [Selegiline Hcl]) 5 mg PO BID [facility] Pantoprazole Sodium (Protonix -) 20 mg PO DAILY [facility] Last Admin: 05/24/17 10:15 Dose: 20 mg Polyethylene Glycol (Miralax (For Daily Use) -) 17 gm PO BID [facility] Last Admin: 05/24/17 10:25 Dose: 17 grams Ranolazine (Ranexa -) 500 mg PO BID [facility] Last Admin: 05/24/17 10:14 Dose: 500 mg *Physical Exam Vital Signs Temperature 98.1 F 05/24/17 06:55 Pulse Rate 60 05/24/17 06:55 Respiratory Rate 19 05/24/17 06:55 Blood Pressure 115/55 05/24/17 06:55 O2 Sat by Pulse Oximetry (%) 97 05/23/17 20:36 - Physical Exam General Appearance: Yes: Nourished, Thin HEENT: positive: EOMI, EMILY, Thrush. negative: Pharyngeal Erythema, TM Bulging , TM Dull, TM Erythema Neck: positive: Supple Respiratory/Chest: positive: Lungs Clear Cardiovascular: positive: S1, S2, Edema (3+ pitting edema B/L) Extremity: positive: Normal Capillary Refill, Normal Inspection Integumentary: positive: Other (seborrheic keratosis on R temporal area, B/L LE) Neuro: Awake, alert, CN appear intact, moves ext, cogwheeling R>L, sensory intact, not pariticipating in confrontation testing, gait deferred CBCD WBC 6.8 K/mm3 (4.0-10.0) 05/24/17 07:48 RBC 3.77 M/mm3 (4.00-5.60) L 05/24/17 07:48 Hgb 11.9 GM/dL (11.7-16.9) 05/24/17 07:48 Hct 35.5 % (35.4-49) 05/24/17 07:48 MCV 94.1 fl (80-96) 05/24/17 07:48 MCHC 33.6 g/dl (32.0-35.9) 05/24/17 07:48 RDW 13.5 % (11.9-15.9) 05/24/17 07:48 Plt Count 185 K/MM3 (134-434) 05/24/17 07:48 MPV 8.3 fl (7.5-11.1) 05/24/17 07:48 CMP Sodium 144 mmol/L (136-145) 05/24/17 07:48 Potassium 3.7 mmol/L (3.5-5.1) 05/24/17 07:48 Chloride 106 mmol/L (98-107) 05/24/17 07:48 Carbon Dioxide 27 mmol/L (21-32) 05/24/17 07:48 Anion Gap 11 (8-16) 05/24/17 07:48 BUN 27 mg/dL (7-18) H 05/24/17 07:48 Creatinine 1.2 mg/dL (0.7-1.3) 05/24/17 07:48 Creat Clearance w eGFR 57.01 (>60) 05/24/17 07:48 Calcium 9.1 mg/dL (8.5-10.1) 05/24/17 07:48 Total Bilirubin 0.8 mg/dL (0.2-1.0) 05/24/17 07:48 AST 16 U/L (15-37) 05/24/17 07:48 ALT 14 U/L (12-78) D 05/24/17 07:48 Alkaline Phosphatase 84 U/L (45-117) 05/24/17 07:48 Total Protein 6.1 g/dl (6.4-8.2) L 05/24/17 07:48 Albumin 3.1 g/dl (3.4-5.0) L 05/24/17 07:48 CT head completed Plan: 89 y.o. male with a PMH of Parkinson's Disease (w/residual L sided weakness) DLD and HTN who presents to our ED today with a c/o weakness, lightheadedness and intermittent vertigo. Patient states he was in his usual state of health this morning until he tried to stand up after eating breakfast at which time he felt lightheaded, diaphoretic and weak. Patient denies any associated chest pain or dyspnea. Patient stated the lightheadedness persisted prompting his visit to the ED. CT head stable. Physcial therapy ordered. Maintain adequate hydration, fall precautions. Monitor blood pressure, maintain normotensive range. Sinement increased to 1mg three times a day, and patient responded.
--- NOTE | 2017-05-24 13:54 | DS ---
Physical Exam: SUBJECTIVE: Patient seen and examined at bed side, no acute events over night walk 100 fett with walker with PT , no fever, chills, N/V/D. denies any chest pain or abdominal pain. OBJECTIVE: Vital Signs Period Temp Pulse Resp BP Sys/Barrett Pulse Ox Last 24 Hr 97.6 F-98.1 F 56-63 17-19 91-119/45-57 97 PHYSICAL EXAM GENERAL: The patient is awake, alert, and fully oriented, in no acute distress. 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 multiple skin keratosis EYES: sclera anicteric, conjunctiva clear. ENT: moist mucous membranes. NECK: supple. LUNGS: Breath sounds equal, clear to auscultation bilaterally, no wheezes, no crackles, no accessory muscle use. HEART: Regular rate and rhythm, S1, S2 without murmur, rub or gallop. ABDOMEN: Soft, nontender, nondistended, normoactive bowel sounds, no guarding, no rebound, EXTREMITIES: 2+ pulses, warm, well-perfused, trace edema. strength 5/5 right arm , 4/5 left arm , sensation intact , LE strength 5/5 , sensation intact , NEUROLOGICAL: Cranial nerves II through XII grossly intact. Normal speech, gait not observed. PSYCH: Normal mood, normal affect. SKIN: Warm, dry, normal turgor, multiple skin tags, keratosis all over the body. LABS Laboratory Results - last 24 hr 05/24/17 05/24/17 07:48 07:48 WBC 6.8 RBC 3.77 L Hgb 11.9 Hct 35.5 MCV 94.1 MCH 31.6 MCHC 33.6 RDW 13.5 Plt Count 185 MPV 8.3 Neutrophils % 64.3 Lymphocytes % 21.1 Monocytes % 10.0 Eosinophils % 4.0 Basophils % 0.6 Sodium 144 Potassium 3.7 Chloride 106 Carbon Dioxide 27 Anion Gap 11 BUN 27 H Creatinine 1.2 Creat Clearance w eGFR 57.01 Random Glucose 109 H Calcium 9.1 Phosphorus 3.4 Total Bilirubin 0.8 AST 16 ALT 14 D Alkaline Phosphatase 84 Total Protein 6.1 L Albumin 3.1 L CBC, BMP 05/24/17 07:48 05/24/17 07:48 Home Medication List Medication Instructions Recorded Confirmed Type Atorvastatin Ca [Lipitor] 10 mg PO DAILY 07/15/14 05/20/17 History Furosemide [Lasix -] 20 mg PO DAILY 07/15/14 05/20/17 History Losartan Potassium 25 mg PO DAILY 07/15/14 05/20/17 History Metoprolol Tartrate 50 mg PO DAILY 07/15/14 05/20/17 History Omeprazole [Prilosec] 20 mg PO DAILY 07/15/14 05/20/17 History Ranolazine [Ranexa] 500 mg PO BID 07/15/14 05/20/17 History Selegiline HCl 5 mg PO BID 07/15/14 05/20/17 History Active Medications Generic Name Dose Route Start Last Admin Trade Name Freq PRN Reason Stop Dose Admin Aspirin 81 mg 05/21/17 10:00 05/24/17 10:15 Asa - PO 81 mg DAILY ELENITA Administration Atorvastatin Calcium 10 mg 05/21/17 10:00 05/24/17 10:14 Lipitor - PO 10 mg DAILY ELENITA Administration Carbidopa/Levodopa 1 each 05/22/17 14:00 05/24/17 05:57 Sinemet 25/100 - PO 1 each TID ELENITA Administration Docusate Sodium 100 mg 05/22/17 11:00 05/24/17 10:15 Colace - PO 100 mg BID ELENITA Administration Enoxaparin Sodium 40 mg 05/21/17 10:00 05/24/17 10:15 Lovenox - SQ 40 mg DAILY ELENITA Administration Furosemide 20 mg 05/21/17 10:00 05/24/17 10:15 Lasix - PO 20 mg DAILY ELENITA Administration CEFTRIAXONE 1 G/50 ML PREMIX 50 mls @ 100 mls/hr 05/23/17 14:30 05/24/17 10: 15 Ceftriaxone 1 Gm-D5w Bag IVPB 100 mls/hr DAILY ELENITA Administration Isosorbide Mononitrate 30 mg 05/22/17 10:00 05/24/17 10:16 Imdur - PO 30 mg DAILY ELENITA Administration Losartan Potassium 25 mg 05/21/17 10:00 05/24/17 10:15 Cozaar - PO 25 mg DAILY ELENITA Administration Metoprolol Tartrate 25 mg 05/22/17 10:00 05/24/17 10:14 Lopressor - PO 25 mg BID ELENITA Administration Non-Formulary Medication 5 mg 05/21/17 10:00 Selegiline Hcl [Selegiline Hcl] PO BID ELENITA Pantoprazole Sodium 20 mg 05/21/17 10:00 05/24/17 10:15 Protonix - PO 20 mg DAILY ELENITA Administration Polyethylene Glycol 17 gm 05/24/17 10:00 05/24/17 10:25 Miralax (For Daily Use) - PO 17 grams BID ELENITA Administration Ranolazine 500 mg 05/21/17 10:00 05/24/17 10:14 Ranexa - PO 500 mg BID ELENITA Administration EKG 05/21/2017 : NSR , with first degree av block , No ST, T wave changes , QT 416. CXR 05/21/2017 No Acute pathology Head CT: 05/22/2017 No Acute intracranial pathology . HOSPITAL COURSE: Date of Admission:05/21/17 Date of Discharge: 05/24/17 Mr Cabrera is 89 y.o. male with a PMH of Parkinson's Disease (w/residual L sided weakness) HLD and HTN who presents to our ED with a c/o weakness, lightheadedness and intermittent vertigo.and generalized weakness. Patient was weak and unable to stand on his feet on admission day liekey secondary to hypotension due to overmedication or secondary to UTI vs Barkinson disease detrioration vs dehydration . His CT head was negative for intracranial acute pathology and CXR was negative for acute process. Dr Yonas Elliotterologist saw him and increased Sinemet to one tab TID . EKG did not show any St, T wave changes.Trop was negative x3 . physical therapy wark with the patient and he was improved and able to walk 100 feet with walker on day of discharged (at home he was walking with cane and he has to climb 5 stairs). Patient was found to have UTI positive for Ecoli and enterococci and was treated with Ceftriaxone 1 f daily IVBP for 2 days and discharged to rehab facility with 5 days total of Levofloxacin 250 mg po daily. he will continue to use laxative for constipation to help have BM once aday. 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 Patient has a h/O CAD, angina pectoris will continue asa, ranexa. For Parkinson's Disease patient will continue carbidopa/levadopa and selegeline per Neurology recommendation ,with Does of Sinemet increased to [address] vizcarra recommendations . Heparine 5000 Units SQ was used for prophylaxis of DVT. Patient is hemodynamically stable and ready to discharge to rehab facility. Minutes to complete discharge: 40 Discharge Summary Reason For Visit: WEAKNESS, PARKINSONS DISEASE Condition: Stable - Instructions Diet, Activity, Other Instructions: You were admitted to the hospital due to generalized weakness, secondary to low blood pressure and the infection in the urine. You will discharged to rehabilitation facility to strengthen your muscles . Please take your time when you get out of bed Please follow fall precautions. Please take your blood pressure medicine as prescribed and monitor blood pressure closely. You were treated for urinary tract infection with ceftriaxone 1gm intravenous for 2 days . you will continue antibiotics as out patient wit Levofloxacin 250 mg daily for 5 days total. The Sinemet was increased to 1 tab daily instead of 1/2 tab You will be discharged of the following medication Aspirin 81 mg once aday Atorvastatin Calcium (Lipitor -) 10 mg once aday at bed time Carbidopa/Levodopa (Sinemet 25/100 -) 1 each three time a day (it was increased from 1/2 tab to 1 tab a day Docusate Sodium (Colace -) 100 mg 1-2 time a day for constipation Furosemide (Lasix -) 20 mg one daily Isosorbide Mononitrate (Imdur -) 30 mg DAILY at bed time (it was decreased from 60 to 30 ) Losartan Potassium (Cozaar -) 25 mg DAILY Metoprolol Tartrate (Lopressor -) 25 mg twice a day Non-Formulary Medication (Selegiline Hcl [Selegiline Hcl]) 5 mg twice a day Pantoprazole Sodium (Protonix -) 20 mg DAILY Polyethylene Glycol (Miralax (For Daily Use) -) 17 gm PO twice daily for constipation Ranolazine (Ranexa -) 500 mg PO twice daily Levofloxacin 250 mg for total of 5 days for urinary infection Please follow up with your primary care physician within one week. If you develop fever chills, or your symptoms worsen call 911 or come back to emergency room as soon as possible. Referrals: Miguel Angel Bateman MD [Primary Care Provider] - 1 Week Chong Castellon MD [Staff Physician] - 2 Weeks Disposition: [facility] F[facility]ILITY - Home Medications Comprehensive Discharge Medication List: Ambulatory Orders Atorvastatin Ca [Lipitor] 10 mg PO DAILY 07/15/14 Furosemide [Lasix -] 20 mg PO DAILY 07/15/14 Losartan Potassium 25 mg PO DAILY 07/15/14 Metoprolol Tartrate 50 mg PO DAILY 07/15/14 Omeprazole [Prilosec] 20 mg PO DAILY 07/15/14 Ranolazine [Ranexa] 500 mg PO BID 07/15/14 Selegiline HCl 5 mg PO BID 07/15/14 Aspirin [ASA -] 81 mg PO DAILY #30 tab.chew 07/19/14 Carbidopa/Levodopa 25/100 [Sinemet 25/100 -] 1 each PO TID tablet 05/24/17 Docusate Sodium [Colace -] 100 mg PO BID capsule 05/24/17 Isosorbide Mononitrate [Imdur -] 30 mg PO DAILY #30 tab.sr.24h 05/24/17 Polyethylene Glycol 3350 [Miralax 119 gm Btl -] 17 gm PO BID bottle 05/24/17 This patient is new to me today: No Emergency Visit: No Critical Care patient: No - Discharge Referral Referred to [facility] Med P.C.: No
--- NOTE | 2017-05-24 14:00 | PN ---
Teaching Attending Note Name of Resident: Kofi Dewitt ATTENDING PHYSICIAN STATEMENT I saw and evaluated the patient. I reviewed the resident's note and discussed the case with the resident. I agree with the resident's findings and plan as documented. SUBJECTIVE: Patient is feeling better with no acute distress. Still feels very weak. No fever or chills. no shortness of breath. OBJECTIVE: Vital Signs Temperature 97.6 F 05/24/17 09:00 Pulse Rate 63 05/24/17 12:38 Respiratory Rate 19 05/24/17 12:38 Blood Pressure 116/53 05/24/17 12:38 O2 Sat by Pulse Oximetry (%) 97 05/23/17 20:36 CBCD WBC 6.8 K/mm3 (4.0-10.0) 05/24/17 07:48 RBC 3.77 M/mm3 (4.00-5.60) L 05/24/17 07:48 Hgb 11.9 GM/dL (11.7-16.9) 05/24/17 07:48 Hct 35.5 % (35.4-49) 05/24/17 07:48 MCV 94.1 fl (80-96) 05/24/17 07:48 MCHC 33.6 g/dl (32.0-35.9) 05/24/17 07:48 RDW 13.5 % (11.9-15.9) 05/24/17 07:48 Plt Count 185 K/MM3 (134-434) 05/24/17 07:48 MPV 8.3 fl (7.5-11.1) 05/24/17 07:48 CMP Sodium 144 mmol/L (136-145) 05/24/17 07:48 Potassium 3.7 mmol/L (3.5-5.1) 05/24/17 07:48 Chloride 106 mmol/L (98-107) 05/24/17 07:48 Carbon Dioxide 27 mmol/L (21-32) 05/24/17 07:48 Anion Gap 11 (8-16) 05/24/17 07:48 BUN 27 mg/dL (7-18) H 05/24/17 07:48 Creatinine 1.2 mg/dL (0.7-1.3) 05/24/17 07:48 Creat Clearance w eGFR 57.01 (>60) 05/24/17 07:48 Random Glucose 109 mg/dL (74-106) H 05/24/17 07:48 Calcium 9.1 mg/dL (8.5-10.1) 05/24/17 07:48 Total Bilirubin 0.8 mg/dL (0.2-1.0) 05/24/17 07:48 AST 16 U/L (15-37) 05/24/17 07:48 ALT 14 U/L (12-78) D 05/24/17 07:48 Alkaline Phosphatase 84 U/L (45-117) 05/24/17 07:48 Total Protein 6.1 g/dl (6.4-8.2) L 05/24/17 07:48 Albumin 3.1 g/dl (3.4-5.0) L 05/24/17 07:48 CARDIAC ENZYMES Creatine Kinase 121 IU/L (39-308) 05/20/17 17:30 Troponin I 0.03 ng/ml (0.00-0.05) 05/21/17 08:00 Current Medications Generic Name Dose Route Start Last Admin Trade Name Freq PRN Reason Stop Dose Admin Aspirin 81 mg 05/21/17 10:00 05/24/17 10:15 Asa - PO 81 mg DAILY ELENITA Administration Atorvastatin Calcium 10 mg 05/21/17 10:00 05/24/17 10:14 Lipitor - PO 10 mg DAILY ELENITA Administration Carbidopa/Levodopa 1 each 05/22/17 14:00 05/24/17 05:57 Sinemet 25/100 - PO 1 each TID ELENITA Administration Docusate Sodium 100 mg 05/22/17 11:00 05/24/17 10:15 Colace - PO 100 mg BID ELENITA Administration Enoxaparin Sodium 40 mg 05/21/17 10:00 05/24/17 10:15 Lovenox - SQ 40 mg DAILY ELENITA Administration Furosemide 20 mg 05/21/17 10:00 05/24/17 10:15 Lasix - PO 20 mg DAILY ELENITA Administration CEFTRIAXONE 1 G/50 ML PREMIX 50 mls @ 100 mls/hr 05/23/17 14:30 05/24/17 10: 15 Ceftriaxone 1 Gm-D5w Bag IVPB 100 mls/hr DAILY ELENITA Administration Isosorbide Mononitrate 30 mg 05/22/17 10:00 05/24/17 10:16 Imdur - PO 30 mg DAILY ELENITA Administration Lactobacillus Acidophilus 1 tab 05/24/17 22:00 Bacid - PO BID ELENITA Losartan Potassium 25 mg 05/21/17 10:00 05/24/17 10:15 Cozaar - PO 25 mg DAILY ELENITA Administration Metoprolol Tartrate 25 mg 05/22/17 10:00 05/24/17 10:14 Lopressor - PO 25 mg BID ELENITA Administration Non-Formulary Medication 5 mg 05/21/17 10:00 Selegiline Hcl [Selegiline Hcl] PO BID ELENITA Pantoprazole Sodium 20 mg 05/21/17 10:00 05/24/17 10:15 Protonix - PO 20 mg DAILY ELENITA Administration Polyethylene Glycol 17 gm 05/24/17 10:00 05/24/17 10:25 Miralax (For Daily Use) - PO 17 grams BID ELENITA Administration Ranolazine 500 mg 05/21/17 10:00 05/24/17 10:14 Ranexa - PO 500 mg BID ELENITA Administration Home Medications Medication Instructions Recorded Atorvastatin Ca [Lipitor] 10 mg PO DAILY 07/15/14 Furosemide [Lasix -] 20 mg PO DAILY 07/15/14 Losartan Potassium 25 mg PO DAILY 07/15/14 Metoprolol Tartrate 50 mg PO DAILY 07/15/14 Omeprazole [Prilosec] 20 mg PO DAILY 07/15/14 Ranolazine [Ranexa] 500 mg PO BID 07/15/14 Selegiline HCl 5 mg PO BID 07/15/14 Aspirin [ASA -] 81 mg PO DAILY #30 tab.chew 07/19/14 Carbidopa/Levodopa 25/100 [Sinemet 1 each PO TID tablet 05/24/17 25/100 -] Docusate Sodium [Colace -] 100 mg PO BID capsule 05/24/17 Isosorbide Mononitrate [Imdur -] 30 mg PO DAILY #30 tab.sr.24h 05/24/17 Polyethylene Glycol 3350 [Miralax 17 gm PO BID bottle 05/24/17 119 gm Btl -] PE: sitting on the chair with no acute distress CVS: S1S2 positive, NSR LE: less edema 1+ bl rest of PE per resident's note ASSESSMENT AND PLAN: 89 yo M h/o Parkinson's disease on carvidopa/levodopa x 7 years presents with inability to stand x 1 day. # Acute generalized weakness improving with hx of Parkinsonism , still having difficulty with his ambulation. Will discharge the patient to rehab. To improve his strength since patient lives by himself. # b/l LE edema improving s/p CAD w/ stents: on lasix po continue , rest of meds continue, Imdur was reduced the dose to 30mg from 60mg. Cardiology consult discussed with # HTN: continue Toprol, imdur was reduced from 60mg to 30mg , losartan, lasix # CAD, angina pectoris: continue asa, ranexa, Imdur 30mg # Parkinson's Disease: continue carbidopa/levadopa and selegeline ,His neurologist (Dr. Gordon @ [place]). DvT Px: Lovenox His Proxy. is Mr. Nassar who is his cousin [phone] out of [facility]. will discharge the patient to rehab.
[2017-05-24 14:39] VITALS: BP 97/48; PULSE 55; TEMP 98
[2017-05-24] MEDS ORDERED: LACTOBACILLUS ACIDOPHILUS 1 EACH TAB (FP) PO SCH (22:00)
== END 2017-05-24 17:37 | DRG 57 ==
LOC: JER 16:26 → SUPCPDRO 16:26 → OBSVTOIN 05-21 00:02 → JERBED 05-21 00:02 → UNDOADMOB 05-21 00:36 → INTOOBSV 05-21 00:36 → JERBED 05-21 00:36 → J6S 05-21 03:12
PROVIDERS: ADMIT Internal Medicine; ATTEND Internal Medicine
DX: G20 Parkinson's disease (principal); N39.0 Urinary tract infection, site not specified; R53.1 Weakness; I25.119 Atherosclerotic heart disease of native coronary artery with unspecified angina pectoris; K59.00 Constipation, unspecified; B96.20 Unspecified Escherichia coli [E. coli] as the cause of diseases classified elsewhere; E83.42 Hypomagnesemia; Z98.61 Coronary angioplasty status; R26.81 Unsteadiness on feet; I95.1 Orthostatic hypotension; I11.0 Hypertensive heart disease with heart failure; I50.9 Heart failure, unspecified; E78.5 Hyperlipidemia, unspecified
CPT/HCPCS: 36415; 70450-TC; 71045-TC; 80053; 81003; 82550; 83735; 84100; 84484; 85025; 87086; 87186; 93005; 93010; 93306-TC; 97116-GP; 97161-GP; 99284-25

== ENCOUNTER 2017-06-20 11:17 | Emergency (ER) | payer OTHER ==
--- NOTE | 2017-06-20 12:35 | PDOC ---
History of Present Illness - History of Present Illness Initial Comments: 06/20/17 12:48 The patient is a 89 year old male with a significant PMH of congestive heart failure, HTN, Parkinson's disease, skin cancer, GERD, constipation, on aspirin, and unspecified psychosis, resident of [facility] who presents to the emergency department after a fall earlier today. As per nursing aid, the patient fell backwards and hit the back of his head on the crash cart. The patient is noted to be confused at baseline. As per nursing aid, the patient normally knows his location but he did not know where he was today and also had behavioral changes such as hitting the window. The patient had a fall approximately one week ago. History is limited secondary to medical condition. The patient denies chest pain, shortness of breath, headache and dizziness. Denies fever, chills, nausea, vomit, diarrhea and constipation. Denies dysuria, frequency, urgency and hematuria. Allergies: NKA Past surgical history: None reported. Social history: No reported alcohol, drug, or cigarette use. PCP: Dr. Bateman <Kadi Franks - Last Filed: 06/20/17 12:48> - General History Source: Patient, EMS Exam Limitations: Dementia <Dahiana Alvarez - Last Filed: 06/21/17 10:56> - General Chief Complaint: Injury Stated Complaint: FALL AMS Time Seen by Provider: 06/20/17 11:43 Past History <Kadi Franks - Last Filed: 06/20/17 12:48> - Past Medical History Anemia: No Cancer: Yes (skin) Cardiac Disorders: Yes CVA: No COPD: No HTN: Yes Hypercholesterolemia: Yes Seizures: No Thyroid Disease: No - Immunization History Immunization Up to Date: Yes - Suicide/Smoking/Psychosocial Hx Smoking Status: No Smoking History: Never smoked Have you smoked in the past 12 months: No Number of Cigarettes Smoked Daily: 0 Hx Alcohol Use: No Drug/Substance Use Hx: No Substance Use Type: None Hx Substance Use Treatment: No <Dahiana Alvarez - Last Filed: 06/21/17 10:56> - Past Medical History Allergies/Adverse Reactions: Allergies Allergy/AdvReac Type Severity Reaction Status Date / Time No Known Allergies Allergy Verified 05/20/17 16:46 Home Medications: Ambulatory Orders Atorvastatin Ca [Lipitor] 10 mg PO DAILY 07/15/14 Furosemide [Lasix -] 20 mg PO DAILY 07/15/14 Losartan Potassium 25 mg PO DAILY 07/15/14 Metoprolol Tartrate 50 mg PO DAILY 07/15/14 Omeprazole [Prilosec] 20 mg PO DAILY 07/15/14 Ranolazine [Ranexa] 500 mg PO BID 07/15/14 Selegiline HCl 5 mg PO BID 07/15/14 Aspirin [ASA -] 81 mg PO DAILY #30 tab.chew 07/19/14 Carbidopa/Levodopa 25/100 [Sinemet 25/100 -] 1 each PO TID tablet 05/24/17 Docusate Sodium [Colace -] 100 mg PO BID capsule 05/24/17 Isosorbide Mononitrate [Imdur -] 30 mg PO DAILY #30 tab.sr.24h 05/24/17 Levofloxacin [Levaquin] 250 mg PO ONCE #5 tablet 05/24/17 Polyethylene Glycol 3350 [Miralax 119 gm Btl -] 17 gm PO BID bottle 05/24/17 *Physical Exam - Vital Signs Last Vital Signs Temp Pulse Resp BP Pulse Ox 97.9 F 62 17 110/52 100 06/20/17 11:51 06/20/17 11:51 06/20/17 11:51 06/20/17 11:51 06/20/17 11:51 <Kadi Franks - Last Filed: 06/20/17 12:48> - Vital Signs Last Vital Signs Temp Pulse Resp BP Pulse Ox 97.9 F 62 17 110/52 100 06/20/17 11:51 06/20/17 11:51 06/20/17 11:51 06/20/17 11:51 06/20/17 11:51 - Physical Exam Comments: GENERAL: Awake, alert, and oriented to person and place, in no acute distress HEAD: No signs of trauma EYES: PERRLA, EOMI, sclera anicteric, conjunctiva clear ENT: Auricles normal inspection, hearing grossly normal, nares patent, oropharynx clear without exudates. Dry mucosa NECK: Normal ROM, supple, no lymphadenopathy, JVD, or masses LUNGS: Breath sounds equal, clear to auscultation bilaterally. No wheezes, and no crackles HEART: Regular rate and rhythm, normal S1 and S2, no murmurs, rubs or gallops ABDOMEN: Soft, nontender, normoactive bowel sounds. No guarding, no rebound. No masses EXTREMITIES: Normal range of motion, no edema. No clubbing or cyanosis. No cords, erythema, or tenderness NEUROLOGICAL: Cranial nerves II through XII grossly intact. Normal speech, motor and sensation intact. SKIN: Warm, Dry, normal turgor, no rashes. +Small skin tear to L forearm, no active bleeding. <Dahiana Alvarez - Last Filed: 06/21/17 10:56> ED Treatment Course - LABORATORY CBC & Chemistry Diagram: 06/20/17 13:12 06/20/17 13:12 <Dahiana Alvarez - Last Filed: 06/21/17 10:56> Medical Decision Making - Medical Decision Making No acute findings on CXR, labs, CTH. Compared with prior labs from [place] taken a few days ago. Stable for DC back to [place]. <Dahiana Alvarez - Last Filed: 06/21/17 10:56> *DC/Admit/Observation/Transfer <Kadi Franks - Last Filed: 06/20/17 12:48> - Discharge Dispostion Admit: No <Dahiana Alvarez - Last Filed: 06/21/17 10:56> Diagnosis at time of Disposition: Fall Qualifiers: Encounter type: initial encounter Qualified Code(s): W19.XXXA - Unspecified fall, initial encounter - Discharge Dispostion Disposition: [facility]ISON F[facility] Condition at time of disposition: Stable - Referrals Referrals: Miguel Angel Bateman MD [Primary Care Provider] - - Patient Instructions Printed Discharge Instructions: How to Prevent Falls - Post Discharge Activity
[2017-06-20 13:30] LABS: BASO % 0.5 % (0-2.0); EOS % 1.8 % (0-4.5); HEMATOCRIT 38.7 % (35.4-49); LYMPH % 14.2 % (8-40); MCH 31.5 pg (25.7-33.7); MCHC 33.7 g/dl (32.0-35.9); MEAN CELL VOLUME 93.5 fl (80-96); MEAN PLT VOLUME 8.3 fl (7.5-11.1); MONO % 17.3 % (3.8-10.2); NEUT % 66.2 % (42.8-82.8); PLATELET COUNT 220 K/MM3 (134-434); RBC 4.14 M/mm3 (4.00-5.60); RDW 13.6 % (11.9-15.9); WHITE BLOOD COUNT 7.7 K/mm3 (4.0-10.0)
[2017-06-20 13:50] LABS: ALBUMIN 3.4 g/dl (3.4-5.0); ANION GAP 6 (8-16); BLOOD UREA NITROGEN 20 mg/dL (7-18); CALCIUM 9.3 mg/dL (8.5-10.1); CHLORIDE 108 mmol/L (98-107); CO2 32 mmol/L (21-32); GLUCOSE,RANDOM 110 mg/dL (74-106); POTASSIUM 4.1 mmol/L (3.5-5.1); SGPT/ALT 10 U/L (12-78); SODIUM 146 mmol/L (136-145)
[2017-06-20 13:55] LABS: ALK PHOS 86 U/L (45-117); BILIRUBIN,TOTAL 0.8 mg/dL (0.2-1.0); CREATININE 1.3 mg/dL (0.7-1.3); SGOT/AST 19 U/L (15-37); TOT PROT 6.8 g/dl (6.4-8.2)
[2017-06-20 16:27] VITALS: BP 109/56; PULSE 59; TEMP 98.3
--- NOTE | 2017-06-20 23:11 | EKG ---
Test Reason : Blood Pressure : / mmHG Vent. Rate : 059 BPM Atrial Rate : 059 BPM P-R Int : 226 ms QRS Dur : 104 ms QT Int : 452 ms P-R-T Axes : 064 -01 054 degrees QTc Int : 447 ms SINUS BRADYCARDIA WITH 1ST DEGREE A-V BLOCK NONSPECIFIC ST ABNORMALITY ABNORMAL ECG WHEN COMPARED WITH ECG OF 21-MAY-2017 01:24, NO SIGNIFICANT CHANGE WAS FOUND Confirmed by GUS MACK MD ([id number]) on 06/20/2017 11:11:04 PM Referred By: Confirmed By:GUS MACK MD
== END 2017-06-20 16:27 ==
LOC: JER 11:17
DX: S09.8XXA Other specified injuries of head, initial encounter (principal); W01.198A Fall on same level from slipping, tripping and stumbling with subsequent striking against other object, initial encounter; Y93.89 Activity, other specified; Y92.128 Other place in nursing home as the place of occurrence of the external cause; Y99.8 Other external cause status; I25.10 Atherosclerotic heart disease of native coronary artery without angina pectoris; I11.0 Hypertensive heart disease with heart failure; K21.9 Gastro-esophageal reflux disease without esophagitis; F29 Unspecified psychosis not due to a substance or known physiological condition; G20 Parkinson's disease; Z79.82 Long term (current) use of aspirin
CPT/HCPCS: 36415; 70450-TC; 71045-TC-FY; 80053; 82550; 82553; 84484; 85025; 93005; 93010; 99281-25

== ENCOUNTER 2017-06-21 19:22 | Emergency (ER) | payer OTHER ==
[2017-06-21 19:36] VITALS: BP 134/62; PULSE 60; TEMP 97.5; BMI 25.8
--- NOTE | 2017-06-21 19:36 | PDOC ---
Rapid Medical Evaluation Chief Complaint: Altered Mental Status Time Seen by Provider: 06/21/17 19:30 Medical Evaluation: Allergies Allergy/AdvReac Type Severity Reaction Status Date / Time No Known Allergies Allergy Verified 06/21/17 19:30 06/21/17 19:30 I have performed a brief in-person evaluation of this patient. The patient presents with a chief complaint of: sent from SNF for increased agitation Pertinent physical exam findings: ecchymosis to left anterolateral 6th rib. A& Ox2. I have ordered the following: BGM, labs, cxr The patient will proceed to the ED for further evaluation. Discharge Disposition - Diagnosis Altered mental status - Referrals - Patient Instructions - Post Discharge Activity
--- NOTE | 2017-06-21 19:59 | PDOC ---
History of Present Illness - General History Source: Patient, EMS, Penitentiary Records - History of Present Illness Initial Comments: 06/21/17 20:17 The patient is a 89 year old male, with a significant past medical history of frequent UTIs, congestive heart failure, HTN, Parkinson's disease, skin cancer, GERD, constipation, on aspirin, and unspecified psychosis, resident of [facility], who presents to the emergency department via EMS from [facility] for altered mental status today. As per [place], the patient becomes aggressive with his prior UTIs and feels the patient is behaving similarly to that. The patient denies any complaints at this time. The patient denies chest pain, shortness of breath, headache and dizziness. The patient denies fever, chills, nausea, vomit, diarrhea and constipation. The patient denies dysuria, frequency, urgency and hematuria. Allergies: NKA Past surgical history: None reported. Social history: No reported alcohol, drug, or cigarette use. PCP: Dr. Bateman <Sue Mustafa - Last Filed: 06/21/17 22:03> - General History Source: Patient, Penitentiary Records <Petr Aguillon - Last Filed: 06/21/17 23:42> - General Chief Complaint: Altered Mental Status Stated Complaint: ALTERED MENTAL STATUS Time Seen by Provider: 06/21/17 19:30 Past History <Sue Mustafa - Last Filed: 06/21/17 22:03> - Past Medical History Anemia: No Cancer: Yes (skin) Cardiac Disorders: Yes (HF) CVA: No COPD: No HTN: Yes Hypercholesterolemia: Yes Psychiatric Problems: Yes (Dilusions) Seizures: No Thyroid Disease: No Other medical history: Parkinson's - Immunization History Immunization Up to Date: Yes - Suicide/Smoking/Psychosocial Hx Smoking Status: No Smoking History: Never smoked Have you smoked in the past 12 months: No Number of Cigarettes Smoked Daily: 0 Information on smoking cessation initiated: No Hx Alcohol Use: No Drug/Substance Use Hx: No Substance Use Type: None Hx Substance Use Treatment: No <Petr Aguillon - Last Filed: 06/21/17 23:42> - Past Medical History Allergies/Adverse Reactions: Allergies Allergy/AdvReac Type Severity Reaction Status Date / Time No Known Allergies Allergy Verified 06/21/17 19:30 Home Medications: Ambulatory Orders Atorvastatin Ca [Lipitor] 10 mg PO DAILY 07/15/14 Furosemide [Lasix -] 20 mg PO DAILY 07/15/14 Losartan Potassium 25 mg PO DAILY 07/15/14 Metoprolol Tartrate 50 mg PO DAILY 07/15/14 Omeprazole [Prilosec] 20 mg PO DAILY 07/15/14 Ranolazine [Ranexa] 500 mg PO BID 07/15/14 Selegiline HCl 5 mg PO BID 07/15/14 Carbidopa/Levodopa 25/100 [Sinemet 25/100 -] 1 each PO TID tablet 05/24/17 Docusate Sodium [Colace -] 100 mg PO BID capsule 05/24/17 Isosorbide Mononitrate [Imdur -] 30 mg PO DAILY #30 tab.sr.24h 05/24/17 Polyethylene Glycol 3350 [Miralax 119 gm Btl -] 17 gm PO BID bottle 05/24/17 Aspirin Coated [Ecotrin -] 81 mg PO DAILY 06/21/17 Dextran 70/Hypromellose [Artificial Tears Eye Drops] 2 dose OU BID 06/21/17 Pimavanserin Tartrate [Nuplazid] 34 mg PO DAILY 06/21/17 Review of Systems - Review of Systems Able to Perform ROS?: Yes Comments:: 06/21/17 20:19 CONSTITUTIONAL: Absent: fever, chills, diaphoresis, generalized weakness, malaise, loss of appetite HEENT: Absent: rhinorrhea, nasal congestion, throat pain, throat swelling, difficulty swallowing, mouth swelling, ear pain, eye pain, visual Changes CARDIOVASCULAR: Absent: chest pain, syncope, palpitations, irregular heart rate, lightheadedness , peripheral edema RESPIRATORY: Absent: cough, shortness of breath, dyspnea with exertion, orthopnea, wheezing, stridor, hemoptysis GASTROINTESTINAL: Absent: abdominal pain, abdominal distension, nausea, vomiting, diarrhea, constipation, melena, hematochezia GENITOURINARY: Absent: dysuria, frequency, urgency, hesitancy, hematuria, flank pain, genital pain MUSCULOSKELETAL: Absent: myalgia, arthralgia, joint swelling SKIN: Absent: rash, itching, pallor HEMATOLOGIC/IMMUNOLOGIC: Absent: easy bleeding, easy bruising, lymphadenopathy, frequent infections ENDOCRINE: Absent: unexplained weight gain, unexplained weight loss, heat intolerance, cold intolerance NEUROLOGIC: Absent: headache, focal weakness or paresthesias, dizziness, unsteady gait, seizure, mental status changes, bladder or bowel incontinence PSYCHIATRIC: Absent: anxiety, depression, suicidal or homicidal ideation, hallucinations. <Sue Mustafa - Last Filed: 06/21/17 22:03> *Physical Exam - Vital Signs Last Vital Signs Temp Pulse Resp BP Pulse Ox 97.5 F L 60 20 134/62 99 06/21/17 19:30 06/21/17 19:30 06/21/17 19:30 06/21/17 19:30 06/21/17 19:30 - Physical Exam Comments: 06/21/17 20:20 GENERAL: Well developed, well nourished. Awake and alert. No acute distress. HEENT: Normocephalic, atraumatic. PERRLA, EOMI. No conjunctival pallor. Sclera are non- icteric. Moist mucous membranes. Oropharynx is clear. NECK: Supple. Full ROM. No JVD. Carotid pulses 2+ and symmetric, without bruits. No thyromegaly. No lymphadenopathy. CARDIOVASCULAR: Regular rate and rhythm. No murmurs, rubs, or gallops. Distal pulses are 2+ and symmetric. PULMONARY: No evidence of respiratory distress. Lungs clear to auscultation bilaterally. No wheezing, rales or rhonchi. ABDOMINAL: Soft. Non-tender. Non-distended. No rebound or guarding. No organomegaly. Normoactive bowel sounds. MUSCULOSKELETAL Normal range of motion at all joints. No bony deformities or tenderness. No CVA tenderness. EXTREMITIES: No cyanosis. No clubbing. No edema. No calf tenderness. SKIN: (+) multiple skin tags to bilateral temporal regions. Warm and dry. Normal capillary refill. No rashes. No jaundice. NEUROLOGICAL: Alert, awake, appropriate. AOx3. Cranial nerves 2-12 intact. Normoreflexic in the upper and lower extremities. Normal speech. Toes are down-going bilaterally. Gait unassessed. PSYCHIATRIC: Cooperative. Good eye contact. Appropriate mood and affect. <Sue Mustafa - Last Filed: 06/21/17 22:03> - Vital Signs Last Vital Signs Temp Pulse Resp BP Pulse Ox 97.5 F L 60 20 134/62 99 06/21/17 19:30 06/21/17 19:30 06/21/17 19:30 06/21/17 19:30 06/21/17 19:30 <Petr Aguillon - Last Filed: 06/21/17 23:42> Heart Score/ECG Review - ECG Intrepretation Comment:: 06/21/17 22:03 EKG was read by Dr. Aguillon at 21:52 Impression: Sinus rhythm with occasional premature ventricular complexes, Nonspecific T wave abnormality, prolonged QT Vent Rate: 63 bpm NH Interval: 198 ms QTc: 483 ms <Sue Mustafa - Last Filed: 06/21/17 22:03> ED Treatment Course - LABORATORY CBC & Chemistry Diagram: 06/21/17 19:55 06/21/17 19:55 - RADIOLOGY Radiograph Interpretation: EXAM#: TYPE/EXAM: RESULT: [id number] CT/HEAD CT WITHOUT CONTRAST Cranial CT without contrast Clinical information: altered mental status No intracranial hemorrhage is seen. There is no definite acute infarct within the limitations of CT. 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 Moderate periventricular and subcortical microvascular ischemic gliosis is seen. There is no extra-axial fluid collection. No gross mass lesion is noted. Involutional changes are seen with mild to moderate ventricular dilatation. Impression: No CT evidence of acute intracranial pathology. There has been no definite interval change in comparison to prior CT studies of 06/20/2017 and 05/22/2017. Chronic ischemic findings as discussed above. Reported By: Johann Dupont MD 06/21/172039 <Sue Mustafa - Last Filed: 06/21/17 22:03> - LABORATORY CBC & Chemistry Diagram: 06/21/17 19:55 06/21/17 19:55 <Petr Aguillon - Last Filed: 06/21/17 23:42> Medical Decision Making - Medical Decision Making 06/21/17 23:41 Dr. Aguillon: The scribe's documentation has been prepared under my direction and personally reviewed by me in its entirery. I confirm that the note above accurately reflects all work, treatment, procedures, and medical decision making performed by me. All studies return to be stable. patient [facility] the [facility]. <Petr Aguillon - Last Filed: 06/21/17 23:42> *DC/Admit/Observation/Transfer - Attestations Scribe Attestion: 06/21/17 20:21 Documentation prepared by Sue Mustafa, acting as medical research tech for Petr Aguillon DO. <Sue Mustafa - Last Filed: 06/21/17 22:03> - Discharge Dispostion Admit: No <Petr Aguillon - Last Filed: 06/21/17 23:42> Diagnosis at time of Disposition: Parkinson disease - Discharge Dispostion Disposition: HOME Condition at time of disposition: Stable - Patient Instructions Printed Discharge Instructions: DI for Parkinson's Disease Additional Instructions: Please follow up with your doctor as soon as possible. Continue all your current medications. Return if any problems
[2017-06-21 21:59] LABS: BASO % 0.6 % (0-2.0); EOS % 3.6 % (0-4.5); HEMATOCRIT 35.6 % (35.4-49); LYMPH % 20.4 % (8-40); MCH 31.3 pg (25.7-33.7); MCHC 33.8 g/dl (32.0-35.9); MEAN CELL VOLUME 92.8 fl (80-96); MEAN PLT VOLUME 8.3 fl (7.5-11.1); MONO % 17.4 % (3.8-10.2); PLATELET COUNT 203 K/MM3 (134-434); RBC 3.84 M/mm3 (4.00-5.60); RDW 13.5 % (11.9-15.9); WHITE BLOOD COUNT 5.6 K/mm3 (4.0-10.0)
[2017-06-21 22:23] LABS: INR 1.19 (0.82-1.09); PROTHROMBIN TIME (PATIENT) 13.5 SEC (9.98-11.88)
[2017-06-21 22:31] LABS: ALBUMIN 3.3 g/dl (3.4-5.0); ANION GAP 6 (8-16); BILIRUBIN,TOTAL 0.8 mg/dL (0.2-1.0); BLOOD UREA NITROGEN 24 mg/dL (7-18); CALCIUM 8.4 mg/dL (8.5-10.1); CHLORIDE 105 mmol/L (98-107); CO2 29 mmol/L (21-32); CREATININE 1.2 mg/dL (0.7-1.3); GLUCOSE,RANDOM 109 mg/dL (74-106); SGOT/AST 16 U/L (15-37); SGPT/ALT 9 U/L (12-78); SODIUM 140 mmol/L (136-145)
[2017-06-21 22:34] LABS: ALK PHOS 82 U/L (45-117)
[2017-06-21 23:13] LABS: URINE APPEARANCE CLEAR; URINE BILIRUBIN NEGATIVE (NEGATIVE); URINE BLOOD NEGATIVE (NEGATIVE); URINE COLOR DKYELLOW; URINE GLUCOSE (UA) NEGATIVE (NEGATIVE); URINE KETONE TRACE (NEGATIVE); URINE LEUK ESTERASE NEGATIVE (NEGATIVE); URINE NITRITE NEGATIVE (NEGATIVE); URINE PROTEIN NEGATIVE (NEGATIVE); URINE UROBILINOGEN 4.0 E.U/dl mg/dL (0.2-1.0)
[2017-06-21] MEDS ORDERED: LORazepam 0.5 MG TABLET PO ONE (23:38)
[2017-06-21] MEDS ORDERED: LORazepam 0.5 MG TABLET ONE (23:54)
--- NOTE | 2017-06-22 16:28 | EKG ---
Test Reason : Blood Pressure : / mmHG Vent. Rate : 063 BPM Atrial Rate : 063 BPM P-R Int : 198 ms QRS Dur : 108 ms QT Int : 472 ms P-R-T Axes : 020 -06 049 degrees QTc Int : 483 ms SINUS RHYTHM WITH OCCASIONAL PREMATURE VENTRICULAR COMPLEXES NONSPECIFIC ST ABNORMALITY PROLONGED QT ABNORMAL ECG WHEN COMPARED WITH ECG OF 20-JUN-2017 12:22, PREMATURE VENTRICULAR COMPLEXES ARE NOW PRESENT Confirmed by INGA DUNN, SRIDEVI ([id number]) on 06/22/2017 4:28:24 PM Referred By: Confirmed By:SRIDEVI XIONG MD
== END 2017-06-22 00:25 ==
LOC: JER 19:22
DX: R45.1 Restlessness and agitation (principal); I10 Essential (primary) hypertension; I50.9 Heart failure, unspecified; K21.9 Gastro-esophageal reflux disease without esophagitis; K59.00 Constipation, unspecified; F29 Unspecified psychosis not due to a substance or known physiological condition; Z87.440 Personal history of urinary (tract) infections; G20 Parkinson's disease; Z79.82 Long term (current) use of aspirin
CPT/HCPCS: 36415; 70450-TC; 71045-TC-FY; 80053; 81003; 82550; 84484; 85025; 85610; 93005; 93010; 99282-25

== ENCOUNTER 2017-08-28 08:59 | Inpatient (IN) | payer OTHER ==
[2017-08-28] MEDS ORDERED: SODIUM CHLORIDE 1,000 ML IV STA (09:17)
[2017-08-28 09:35] VITALS: BMI 28.4
--- NOTE | 2017-08-28 09:49 | PDOC ---
History of Present Illness - General Chief Complaint: Altered Mental Status Stated Complaint: ALTERED MENTAL STATUS Time Seen by Provider: 08/28/17 09:09 History Source: Care Provider, EMS, [facility] Records Exam Limitations: Dementia - History of Present Illness Initial Comments: 08/28/17 09:19 89-year-old male with history of dementia was sent from a [facility] for evaluation of worsening weakness and decreased appetite, and confusion since . As per staff no meds were given this morning and called EMS when patient appeared to be weaker than yesterday. No BGM was done and states vital signs were stable upon transfer. As per staff the Lasix was increased yesterday but did not start the new dose as of yet. Timing/Duration: other (3-4 days) Severity: moderate Associated Symptoms: reports: weakness Past History - Travel Traveled outside of the country in the last 30 days: No - Past Medical History Allergies/Adverse Reactions: Allergies Allergy/AdvReac Type Severity Reaction Status Date / Time No Known Allergies Allergy Verified 08/28/17 12:23 Home Medications: Ambulatory Orders Atorvastatin Ca [Lipitor] 10 mg PO DAILY 07/15/14 Furosemide [Lasix -] 20 mg PO DAILY 07/15/14 Losartan Potassium 25 mg PO DAILY 07/15/14 Metoprolol Tartrate 50 mg PO DAILY 07/15/14 Omeprazole [Prilosec] 20 mg PO DAILY 07/15/14 Ranolazine [Ranexa] 500 mg PO BID 07/15/14 Selegiline HCl 5 mg PO BID 07/15/14 Carbidopa/Levodopa 25/100 [Sinemet 25/100 -] 1 each PO TID tablet 05/24/17 Docusate Sodium [Colace -] 100 mg PO BID capsule 05/24/17 Isosorbide Mononitrate [Imdur -] 30 mg PO DAILY #30 tab.sr.24h 05/24/17 Polyethylene Glycol 3350 [Miralax 119 gm Btl -] 17 gm PO BID bottle 05/24/17 Aspirin Coated [Ecotrin -] 81 mg PO DAILY 06/21/17 Dextran 70/Hypromellose [Artificial Tears Eye Drops] 2 dose OU BID 06/21/17 Pimavanserin Tartrate [Nuplazid] 34 mg PO DAILY 06/21/17 Anemia: No Cancer: Yes (skin) Cardiac Disorders: Yes (HF) CVA: No COPD: No HTN: Yes Hypercholesterolemia: Yes Psychiatric Problems: Yes (Dilusions, anxiety, agitation, restlessness) Seizures: No Thyroid Disease: No - Immunization History Immunization Up to Date: Yes - Suicide/Smoking/Psychosocial Hx Smoking Status: No Smoking History: Unknown if ever smoked Have you smoked in the past 12 months: No Number of Cigarettes Smoked Daily: 0 Information on smoking cessation initiated: No Hx Alcohol Use: No Drug/Substance Use Hx: No Substance Use Type: None Hx Substance Use Treatment: No Patient Lives Alone: No Lives with/in: [facility] Review of Systems - Review of Systems Able to Perform ROS?: No Constitutional: Yes: Loss of Appetite, Weakness. No: Fever HEENTM: No: Symptoms Reported Respiratory: No: Symptoms reported Cardiac (ROS): No: Symptoms Reported ABD/GI: Yes: Poor Appetite : No: Symptoms Reported Musculoskeletal: No: Symptoms Reported Integumentary: No: Symptoms Reported Neurological: No: Symptoms reported Endocrine: No: Symptoms Reported Hematologic/Lymphatic: No: Symptoms Reported *Physical Exam - Vital Signs Last Vital Signs Temp Pulse Resp BP Pulse Ox 99.2 F 114 H 16 120/84 96 08/28/17 08:59 08/28/17 08:59 08/28/17 08:59 08/28/17 08:59 08/28/17 08:59 - Physical Exam General Appearance: Yes: Nourished, Appropriately Dressed. No: Apparent Distress HEENT: positive: EOMI, EMILY, TMs Normal, Pharynx Normal (dry) Neck: positive: Supple Respiratory/Chest: positive: Lungs Clear, Normal Breath Sounds. negative: Respiratory Distress, Accessory Muscle Use Cardiovascular: positive: Regular Rhythm, Edema (3+ pitting edema to left foot and ankle), Tachycardia. negative: Murmur Vascular Pulses: Dorsalis-Pedis (R): 2+, Doralis-Pedis (L): 2+ Gastrointestinal/Abdominal: positive: Soft. negative: Tenderness Extremity: positive: Normal Capillary Refill, Pedal Edema (3+ pitting edema to lle which is profoundly larger than his right lower extremity). negative: Calf Tenderness Integumentary: positive: Normal Color, Warm, Moist Neurologic: positive: Motor Strength 5/5 (moves extremeties in bed) Heart Score/ECG Review - History History: Slightly suspicious - Electrocardiogram EKG: Normal - Age Age: >/= 65 - Risk Factors Risk Factors Heart Score: Yes Hx Hypertension Based on the list above the patient has:: 1-2 risk factors - Troponin Troponin: </= normal limit - Score Heart Score - Total: 3 - ECG Intrepretation Rhythm: Regular Rhythm (A. fib rhythm. Rate 108. QRS intervals regular. No ST elevation or depression) ED Treatment Course - LABORATORY CBC & Chemistry Diagram: 08/28/17 10:00 08/28/17 10:00 - RADIOLOGY Radiology Studies Ordered: Category Date Time Status CHEST X-RAY PORTABLE* [RAD] Stat Radiology 08/28/17 09:17 Ordered DUPLEX VASCUL US-1 LEG [US] Stat Ultrasound 08/28/17 09:19 Ordered Medical Decision Making - Medical Decision Making 08/28/17 10:08 Patient for evaluation of worsening weakness, decreased appetite and swelling to the lower extremities. Patient had recent increase of his Lasix this which was due to start this morning. Patient on exam with noted 3+ pitting edema to the left lower extremity with mild erythema concerning for DVT versus cellulitis versus venous stasis. Patient also concerning for sepsis secondary to weakness decreased appetite and elevated heart rate. Patient ordered for septic workup. Patient also given his metoprolol which he did not take this morning for his A. fib and rate control. Patient ordered for IV fluids and duplex of the lower extremity 08/28/17 12:33 X-ray shows new atelectasis versus infiltrate the right base since June 2017. Patient ordered for vancomycin and Zosyn. Patient also ordered for chest CTA secondary to elevated troponin and new findings of a left lower extremity DVT. Which was seen on ultrasound in the left superficial femoral and popliteal vein. 08/28/17 12:33 pulse 84 after receiving Lopressor. Laboratory Tests 08/28/17 08/28/17 08/28/17 10:00 10:00 10:00 WBC 10.1 H D Hgb 11.7 Hct 33.5 L Plt Count 347 D Neutrophils % 85.2 H D PT with INR 16.30 H INR 1.44 H POC VBG pCO2 POC VBG pO2 Mixed VBG HCO3 Sodium Potassium Chloride Carbon Dioxide Anion Gap BUN Creatinine Creat Clearance w eGFR Random Glucose Lactic Acid Calcium Total Bilirubin AST Creatine Kinase Troponin I Albumin Urine Protein 1+ H Urine Ketones Trace H Urine Urobilinogen 4.0 e.u/dl Ur Leukocyte Esterase Negative Urine WBC (Auto) 1 Urine RBC (Auto) 1 08/28/17 08/28/17 08/28/17 10:00 10:00 10:00 WBC Hgb Hct Plt Count Neutrophils % PT with INR INR POC VBG pCO2 49.2 POC VBG pO2 20.7 L Mixed VBG HCO3 28.7 H Sodium 146 H Potassium 4.2 Chloride 108 H Carbon Dioxide 31 Anion Gap 7 L BUN 24 H Creatinine 1.3 Creat Clearance w eGFR 51.98 Random Glucose 151 H D Lactic Acid 2.2 H* Calcium 9.3 Total Bilirubin 0.6 D AST 29 D Creatine Kinase Troponin I 0.13 H D Albumin 2.9 L Urine Protein Urine Ketones Urine Urobilinogen Ur Leukocyte Esterase Urine WBC (Auto) Urine RBC (Auto) 08/28/17 08/28/17 12:25 12:25 WBC Hgb Hct Plt Count Neutrophils % PT with INR INR POC VBG pCO2 POC VBG pO2 Mixed VBG HCO3 Sodium Potassium Chloride Carbon Dioxide Anion Gap BUN Creatinine Creat Clearance w eGFR Random Glucose Lactic Acid 1.5 Calcium Total Bilirubin AST Creatine Kinase 547 H Troponin I 0.15 H Albumin Urine Protein Urine Ketones Urine Urobilinogen Ur Leukocyte Esterase Urine WBC (Auto) Urine RBC (Auto) 08/28/17 13:21 EKG also shows A. fib which is new when compared to his previous EKGs. Patient has been seen by Dr. paris in the past and will be admitted to telemetry for new onset A. fib, DVT, and elevated troponin. Case discussed with PUPPET ENGINEER for Dr. Patricia and will admit to telemetry inpatient. I will update her on the CT findings once resulted. 08/28/17 13:23 Pt ordered for 500 mL of IV fluid conservatively for elevated CK and initial elevated lactic acid. Heparin gtt will be ordered 08/28/17 15:52 Pulmonary embolus in the right main pulmonary artery extending to the proximal and distal right lower lobe pulmonary artery bifurcations as well as small pulmonary emboli in the distal left lower lobe pulmonary artery. Patient was ordered for heparin bolus and drip. PUPPET ENGINEER for Dr. Patricia was updated. Patient remains stable *DC/Admit/Observation/Transfer Diagnosis at time of Disposition: New onset a-fib, DVT (deep venous thrombosis), Elevated troponin - Discharge Dispostion Admit: Yes - Referrals - Patient Instructions - Post Discharge Activity
[2017-08-28] MEDS ORDERED: METOPROLOL TARTRATE 50 MG TABLET (FP) PO ONE (10:01)
[2017-08-28 10:30] LABS: VENOUS PC02 49.2 mmHg (38-52); VENOUS PH 7.38 (7.32-7.42); VENOUS PO2 20.7 mmHg (28-48)
[2017-08-28 10:36] LABS: BASO % 0.1 % (0-2.0); EOS % 0.3 % (0-4.5); HEMATOCRIT 33.5 % (35.4-49); HEMOGLOBIN 11.7 GM/dL (11.7-16.9); LYMPH % 6.7 % (8-40); MCH 32.8 pg (25.7-33.7); MEAN CELL VOLUME 93.8 fl (80-96); MEAN PLT VOLUME 7.8 fl (7.5-11.1); MONO % 7.7 % (3.8-10.2); NEUT % 85.2 % (42.8-82.8); PLATELET COUNT 347 K/MM3 (134-434); RBC 3.57 M/mm3 (4.00-5.60); RDW 13.3 % (11.9-15.9); WHITE BLOOD COUNT 10.1 K/mm3 (4.0-10.0)
[2017-08-28 10:44] LABS: URINE APPEARANCE SLCLOUDY; URINE BILIRUBIN NEGATIVE (<2.0 mg/dL); URINE BLOOD NEGATIVE (NEGATIVE); URINE COLOR AMBER; URINE GLUCOSE (UA) NEGATIVE (NEGATIVE); URINE KETONE TRACE (NEGATIVE); URINE LEUK ESTERASE NEGATIVE (NEGATIVE); URINE NITRITE NEGATIVE (NEGATIVE); URINE UROBILINOGEN 4.0 E.U/dl mg/dL (0.2-1.0)
--- NOTE | 2017-08-28 10:44 | EKG ---
Test Reason : Blood Pressure : / mmHG Vent. Rate : 108 BPM Atrial Rate : 097 BPM P-R Int : 000 ms QRS Dur : 106 ms QT Int : 384 ms P-R-T Axes : 000 028 033 degrees QTc Int : 514 ms ATRIAL FIBRILLATION WITH RAPID VENTRICULAR RESPONSE WITH PREMATURE VENTRICULAR OR ABERRANTLY CONDUCTED COMPLEXES ST depression, consider subendocardial injury ABNORMAL ECG WHEN COMPARED WITH ECG OF 21-JUN-2017 21:52, ATRIAL FIBRILLATION HAS REPLACED SINUS RHYTHM VENT. RATE HAS INCREASED BY 45 BPM Confirmed by TIMI JESSICA MD ([id number]) on 08/28/2017 10:43:36 AM Referred By: Confirmed By:TIMI JESSICA MD
[2017-08-28] MEDS ORDERED: METOPROLOL TARTRATE 50 MG TABLET (FP) ONE (10:46)
[2017-08-28 10:49] LABS: URINE PROTEIN 1+ (NEGATIVE)
[2017-08-28 10:50] LABS: INR 1.44 (0.82-1.09); PROTHROMBIN TIME (PATIENT) 16.3 SEC (9.7-13.0)
[2017-08-28 10:52] LABS: EPI CELLS RARE /HPF (FEW); URINE MUCUS FEW
[2017-08-28 11:09] LABS: ALBUMIN 2.9 g/dl (3.4-5.0); ANION GAP 7 (8-16); BILIRUBIN,TOTAL 0.6 mg/dL (0.2-1.0); BLOOD UREA NITROGEN 24 mg/dL (7-18); CALCIUM 9.3 mg/dL (8.5-10.1); CHLORIDE 108 mmol/L (98-107); CO2 31 mmol/L (21-32); CREATININE 1.3 mg/dL (0.7-1.3); GLUCOSE,RANDOM 151 mg/dL (74-106); POTASSIUM 4.2 mmol/L (3.5-5.1); SGOT/AST 29 U/L (15-37); SGPT/ALT 31 U/L (12-78); SODIUM 146 mmol/L (136-145); TOT PROT 6.9 g/dl (6.4-8.2)
[2017-08-28 11:12] LABS: ALK PHOS 62 U/L (45-117)
--- NOTE | 2017-08-28 11:56 | PDOC ---
*Physical Exam - Vital Signs Last Vital Signs Temp Pulse Resp BP Pulse Ox 99.2 F 114 H 16 120/84 96 08/28/17 08:59 08/28/17 08:59 08/28/17 08:59 08/28/17 08:59 08/28/17 08:59 <Crystal Nuñez - Last Filed: 08/28/17 11:54> - Vital Signs Last Vital Signs Temp Pulse Resp BP Pulse Ox 99.2 F 114 H 16 120/84 96 08/28/17 08:59 08/28/17 08:59 08/28/17 08:59 08/28/17 08:59 08/28/17 08:59 - Physical Exam Comments: GENERAL: Drowsy but awake, in no acute distress. HEAD: No signs of trauma EYES: PERRLA, EOMI, sclera anicteric, conjunctiva clear ENT: Auricles normal inspection, nares patent, Dry mucosa NECK: Normal ROM, supple, no lymphadenopathy, JVD, or masses LUNGS: Crackles at bases. HEART: Regular rate and rhythm, normal S1 and S2, no murmurs, rubs or gallops ABDOMEN: Soft, nontender, normoactive bowel sounds. No guarding, no rebound. No masses EXTREMITIES: Lower extremity edema (left greater than right). Left distal hoover - -> mild erythema. No clubbing or cyanosis. No cords or tenderness. NEUROLOGICAL: Normal speech SKIN: Patchy areas of skin thickening and growths on face and legs. Warm, Dry. <Liana Biswas - Last Filed: 08/28/17 12:17> ED Treatment Course - LABORATORY CBC & Chemistry Diagram: 08/28/17 10:00 08/28/17 10:00 - ADDITIONAL ORDERS Additional order review: Laboratory Results 08/28/17 08/28/17 08/28/17 10:00 10:00 10:00 PT with INR INR VBG pH 7.38 POC VBG pCO2 49.2 POC VBG pO2 20.7 L Mixed VBG HCO3 28.7 H Sodium 146 H Potassium 4.2 Chloride 108 H Carbon Dioxide 31 Anion Gap 7 L BUN 24 H Creatinine 1.3 Creat Clearance w eGFR 51.98 Random Glucose 151 H D Calcium 9.3 Total Bilirubin 0.6 D AST 29 D ALT 31 D Alkaline Phosphatase 62 D Troponin I Cancelled 0.13 H D Total Protein 6.9 Albumin 2.9 L Urine Color Urine Appearance Urine pH Ur Specific [place] Urine Protein Urine Glucose (UA) Urine Ketones Urine Blood Urine Nitrite Urine Bilirubin Urine Urobilinogen Ur Leukocyte Esterase Urine WBC (Auto) Urine RBC (Auto) Ur Epithelial Cells Urine Mucus 08/28/17 08/28/17 10:00 10:00 PT with INR 16.30 H INR 1.44 H VBG pH POC VBG pCO2 POC VBG pO2 Mixed VBG HCO3 Sodium Potassium Chloride Carbon Dioxide Anion Gap BUN Creatinine Creat Clearance w eGFR Random Glucose Calcium Total Bilirubin AST ALT Alkaline Phosphatase Troponin I Total Protein Albumin Urine Color Lucia Urine Appearance Slcloudy Urine pH 5.0 Ur Specific [place] 1.023 Urine Protein 1+ H Urine Glucose (UA) Negative Urine Ketones Trace H Urine Blood Negative Urine Nitrite Negative Urine Bilirubin Negative Urine Urobilinogen 4.0 e.u/dl Ur Leukocyte Esterase Negative Urine WBC (Auto) 1 Urine RBC (Auto) 1 Ur Epithelial Cells Rare Urine Mucus Few 08/28/17 10:00 RBC 3.57 L MCV 93.8 MCHC 35.0 RDW 13.3 MPV 7.8 Neutrophils % 85.2 H D Lymphocytes % 6.7 L D Monocytes % 7.7 Eosinophils % 0.3 D Basophils % 0.1 - Medications Given in the ED: ED Medications Discontinued Medications Generic Name Dose Route Start Last Admin Trade Name Vincentq PRN Reason Stop Dose Admin Sodium Chloride 1,000 mls @ 1,000 mls/hr 08/28/17 09:17 08/28/17 10:00 Normal Saline - IV 08/28/17 10:16 1,000 mls/hr ASDIR STA Administration Metoprolol Tartrate 50 mg 08/28/17 10:01 08/28/17 10:35 Lopressor - PO 08/28/17 10:02 50 mg ONCE ONE Administration <Crystal Nuñez - Last Filed: 08/28/17 11:54> - LABORATORY CBC & Chemistry Diagram: 08/28/17 10:00 08/28/17 10:00 - ADDITIONAL ORDERS Additional order review: Laboratory Results 08/28/17 08/28/17 08/28/17 10:00 10:00 10:00 PT with INR INR VBG pH 7.38 POC VBG pCO2 49.2 POC VBG pO2 20.7 L Mixed VBG HCO3 28.7 H Sodium 146 H Potassium 4.2 Chloride 108 H Carbon Dioxide 31 Anion Gap 7 L BUN 24 H Creatinine 1.3 Creat Clearance w eGFR 51.98 Random Glucose 151 H D Calcium 9.3 Total Bilirubin 0.6 D AST 29 D ALT 31 D Alkaline Phosphatase 62 D Troponin I Cancelled 0.13 H D Total Protein 6.9 Albumin 2.9 L Urine Color Urine Appearance Urine pH Ur Specific [place] Urine Protein Urine Glucose (UA) Urine Ketones Urine Blood Urine Nitrite Urine Bilirubin Urine Urobilinogen Ur Leukocyte Esterase Urine WBC (Auto) Urine RBC (Auto) Ur Epithelial Cells Urine Mucus 08/28/17 08/28/17 10:00 10:00 PT with INR 16.30 H INR 1.44 H VBG pH POC VBG pCO2 POC VBG pO2 Mixed VBG HCO3 Sodium Potassium Chloride Carbon Dioxide Anion Gap BUN Creatinine Creat Clearance w eGFR Random Glucose Calcium Total Bilirubin AST ALT Alkaline Phosphatase Troponin I Total Protein Albumin Urine Color Lucia Urine Appearance Slcloudy Urine pH 5.0 Ur Specific [place] 1.023 Urine Protein 1+ H Urine Glucose (UA) Negative Urine Ketones Trace H Urine Blood Negative Urine Nitrite Negative Urine Bilirubin Negative Urine Urobilinogen 4.0 e.u/dl Ur Leukocyte Esterase Negative Urine WBC (Auto) 1 Urine RBC (Auto) 1 Ur Epithelial Cells Rare Urine Mucus Few 08/28/17 10:00 RBC 3.57 L MCV 93.8 MCHC 35.0 RDW 13.3 MPV 7.8 Neutrophils % 85.2 H D Lymphocytes % 6.7 L D Monocytes % 7.7 Eosinophils % 0.3 D Basophils % 0.1 - Medications Given in the ED: ED Medications Discontinued Medications Generic Name Dose Route Start Last Admin Trade Name Freq PRN Reason Stop Dose Admin Sodium Chloride 1,000 mls @ 1,000 mls/hr 08/28/17 09:17 08/28/17 10:00 Normal Saline - IV 08/28/17 10:16 1,000 mls/hr ASDIR STA Administration Metoprolol Tartrate 50 mg 08/28/17 10:01 08/28/17 10:35 Lopressor - PO 08/28/17 10:02 50 mg ONCE ONE Administration <Liana Biswas - Last Filed: 08/28/17 12:17> Medical Decision Making - Medical Decision Making 08/28/17 11:54 89 yo M from [facility] with fever, AMS lethargy and decreased po intake x 4 days. differential diagnosis uti, electrolyte abnormality, sepsis pna, renal failure. plan cbc lyte ekg cxr ua cultures, fever control iv hydration likley abx. admit seen and examined in conjunction with TOOTH CLERK Myriam Keys, agree with assessment and plan. <Crystal Nuñez - Last Filed: 08/28/17 11:54> *DC/Admit/Observation/Transfer <Crystal Nuñez - Last Filed: 08/28/17 11:54> <Liana Biswas - Last Filed: 08/28/17 12:17> - Referrals Referrals: Alexandru Patricia MD [Primary Care Provider] - - Patient Instructions - Post Discharge Activity
[2017-08-28] MEDS ORDERED: PIPERACILLIN/TAZOB 4.5 GM 4.5 GM in DEXTROSE 5%-WATER 100 ML IVPB ONE (12:21)
[2017-08-28] MEDS ORDERED: VANCOMYCIN 1,000 MG in DEXTROSE 5%-WATER - 250 ML IVPB ONE (12:21)
[2017-08-28] MEDS ORDERED: PIPERACILLIN/TAZOB 4.5 GM 4.5 GM/100 ML BAG IVPB ONE (12:33)
[2017-08-28] MEDS ORDERED: VANCOMYCIN 1 GRAM (PRE-DOCKED) 1,000 MG/250 ML BAG IVPB ONE (12:34)
[2017-08-28] MEDS ORDERED: SODIUM CHLORIDE 500 ML IV STA (13:23)
[2017-08-28] MEDS ORDERED: HEPARIN NA (PORCINE) 5,000 UNITS/ML 1ML VIAL IVPUSH ONE (15:43)
[2017-08-28] MEDS: HEPARIN INFUSION - 25,000 UNITS/500 ML INFUS.BAG IVPB SCH (15:55)
[2017-08-28] MEDS ORDERED: HEPARIN INFUSION - 25,000 UNITS/500 ML INFUS.BAG IVPB ONE (15:56)
[2017-08-28] MEDS ORDERED: HEPARIN NA (PORCINE) 5,000 UNITS/ML 1ML VIAL ONE (15:56)
--- NOTE | 2017-08-28 16:50 | HP ---
Admitting History and Physical - Primary Care Physician PCP: Alexandru Patricia - Admission Chief Complaint: Pulmonary Embolism, New Onset Afib, DVT History of Present Illness: 89-year-old male with history of dementia was sent from a [facility] for evaluation of worsening weakness and decreased appetite, and confusion since . As per staff no meds were given this morning and called EMS when patient appeared to be weaker than yesterday. No BGM was done and states vital signs were stable upon transfer. As per staff the Lasix was increased yesterday but did not start the new dose as of yet. History Source: Medical Record Limitations to Obtaining History: Dementia - Past Medical History CODER OPERATOR: Yes: Parkinson's Cardiovascular: Yes: CAD, HTN, Other (unspecified cardiac disorder) Dermatology: Yes: Basal Cell (s/p resection), Melanoma (s/p resection) - Smoking History Smoking history: Unknown if ever smoked Have you smoked in the past 12 months: No Aproximately how many cigarettes per day: 0 - Alcohol/Substance Use Hx Alcohol Use: No History of Substance Use: reports: None Home Medications - Allergies Allergies/Adverse Reactions: Allergies Allergy/AdvReac Type Severity Reaction Status Date / Time No Known Allergies Allergy Verified 08/28/17 12:23 - Home Medications Home Medications: Ambulatory Orders Atorvastatin Ca [Lipitor] 10 mg PO DAILY 07/15/14 Furosemide [Lasix -] 20 mg PO DAILY 07/15/14 Losartan Potassium 25 mg PO DAILY 07/15/14 Metoprolol Tartrate 50 mg PO DAILY 07/15/14 Omeprazole [Prilosec] 20 mg PO DAILY 07/15/14 Ranolazine [Ranexa] 500 mg PO BID 07/15/14 Selegiline HCl 5 mg PO BID 07/15/14 Carbidopa/Levodopa 25/100 [Sinemet 25/100 -] 1 each PO TID tablet 05/24/17 Docusate Sodium [Colace -] 100 mg PO BID capsule 05/24/17 Isosorbide Mononitrate [Imdur -] 30 mg PO DAILY #30 tab.sr.24h 05/24/17 Polyethylene Glycol 3350 [Miralax 119 gm Btl -] 17 gm PO BID bottle 05/24/17 Aspirin Coated [Ecotrin -] 81 mg PO DAILY 06/21/17 Dextran 70/Hypromellose [Artificial Tears Eye Drops] 2 dose OU BID 06/21/17 Pimavanserin Tartrate [Nuplazid] 34 mg PO DAILY 06/21/17 Family Disease History - Family Disease History Family Disease History: Diabetes: Father, Other: Mother (alzheimers) Review of Systems Unable to obtain ROS, reason: Dementia - Review of Systems Constitutional: reports: Loss of Appetite, Weakness Physical Examination Vital Signs: Vital Signs Temperature 98.6 F 08/28/17 12:30 Pulse Rate 66 08/28/17 12:30 Respiratory Rate 16 08/28/17 12:30 Blood Pressure 129/90 08/28/17 12:30 O2 Sat by Pulse Oximetry (%) 98 08/28/17 12:30 Constitutional: Yes: Well Nourished, No Distress, Calm Cardiovascular: Yes: Pulse Irregular Respiratory: Yes: Diminished Musculoskeletal: Yes: Muscle Weakness Edema: Yes (left) Neurological: Yes: Pre-Existing Deficit Labs: CBC, BMP 08/28/17 10:00 08/28/17 10:00 Imaging - Results Chest X-ray: Report Reviewed Cat Scan: Report Reviewed Ultrasound: Report Reviewed Problem List - Problems (1) Pulmonary embolism Assessment/Plan: -2/2 to new onset afib -CTA reviewed -Heparin drip -Hematology consult Code(s): I26.99 - OTHER PULMONARY EMBOLISM WITHOUT ACUTE COR PULMONALE Qualifiers: Chronicity: acute (2) DVT (deep venous thrombosis) Assessment/Plan: -Hematology consult -vascular consult Code(s): I82.409 - ACUTE EMBOLISM AND THOMBOS UNSP DEEP VN UNSP LOWER EXTREMITY Qualifiers: DVT location: lower extremity Chronicity: acute Laterality: left (3) New onset a-fib Assessment/Plan: -Cardiology consult -Heparin drip -Tele Code(s): I48.91 - UNSPECIFIED ATRIAL FIBRILLATION (4) Weakness Assessment/Plan: -multifactorial -UC pending Code(s): R53.1 - WEAKNESS Assessment/Plan see problem list
[2017-08-28] MEDS ORDERED: CARBIDOPA/LEVODOPA 25/250 TABLET (FP) ONE (17:05)
[2017-08-28] MEDS: CARBIDOPA/LEVODOPA 25/100 TABLET (FP) PO SCH ×2 (17:11→23:00)
[2017-08-28] MEDS: ATORVASTATIN CA 10 MG TABLET (FP) PO SCH (23:00)
[2017-08-28] MEDS: POLYETHYLENE GLYCOL 3350 119 GM BTL PO SCH (23:00)
[2017-08-28] MEDS: RANOLAZINE E.R. 500 MG TABLET (FP) PO SCH (23:00)
[2017-08-28] MEDS: DOCUSATE SODIUM 100 MG CAPSULE (FP) PO SCH (23:00)
[2017-08-28] MEDS: QUEtiapine FUMARATE 25 MG TABLET (FP) PO SCH (23:30)
[2017-08-29] MEDS: CARBIDOPA/LEVODOPA 25/100 TABLET (FP) PO SCH ×3 (06:27→22:53)
[2017-08-29 06:48] LABS: BASO % 0.8 % (0-2.0); EOS % 3.2 % (0-4.5); HEMATOCRIT 28.8 % (35.4-49); LYMPH % 23.3 % (8-40); MCH 32.7 pg (25.7-33.7); MCHC 34.8 g/dl (32.0-35.9); MEAN CELL VOLUME 93.8 fl (80-96); MEAN PLT VOLUME 7.8 fl (7.5-11.1); MONO % 10.2 % (3.8-10.2); NEUT % 62.5 % (42.8-82.8); PLATELET COUNT 292 K/MM3 (134-434); RBC 3.07 M/mm3 (4.00-5.60); RDW 13.7 % (11.9-15.9)
[2017-08-29 07:18] LABS: ALBUMIN 2.5 g/dl (3.4-5.0); ANION GAP 4 (8-16); BILIRUBIN,TOTAL 0.5 mg/dL (0.2-1.0); BLOOD UREA NITROGEN 20 mg/dL (7-18); CALCIUM 8.5 mg/dL (8.5-10.1); CHLORIDE 112 mmol/L (98-107); CHOLESTEROL 120 mg/dL (50-200); CO2 29 mmol/L (21-32); GLUCOSE,RANDOM 117 mg/dL (74-106); POTASSIUM 3.7 mmol/L (3.5-5.1); SGOT/AST 39 U/L (15-37); SGPT/ALT 7 U/L (12-78); SODIUM 145 mmol/L (136-145); TOT PROT 5.8 g/dl (6.4-8.2); TRIGLYCERIDES 63 mg/dL (35-160)
[2017-08-29 07:19] LABS: ALK PHOS 54 U/L (45-117); HDL CHOLESTEROL 45 mg/dL (40-60)
--- NOTE | 2017-08-29 09:57 | CONSULT ---
Consult - text type - Consultation Consultation Note: Neurology History of Present Illness: 89-year-old male with history of dementia was sent from a [facility] for evaluation of worsening weakness and decreased appetite, and confusion since . As per staff no meds were given this morning and called EMS when patient appeared to be weaker than yesterday. No BGM was done and states vital signs were stable upon transfer. As per staff the Lasix was increased but did not start the new dose as of yet. Does have parkinson's disease and I was consulted regarding medication. Spoke to primary team, some medications not available at [facility]. Was on nuplazid and agree with change to Seroquel. Has been on Carbidopa/Levodopa combination with selegeline which is not available at [facility]. Will add Amantadine which may help with his extrapyramidal symptoms and should be generic and avaiabale. Dose of 100mg twice daily ordered. History Source: Medical Record Limitations to Obtaining History: Dementia - Past Medical History [employer]: Yes: Parkinson's Cardiovascular: Yes: CAD, HTN, Other (unspecified cardiac disorder) Dermatology: Yes: Basal Cell (s/p resection), Melanoma (s/p resection) - Smoking History Smoking history: Unknown if ever smoked Have you smoked in the past 12 months: No Aproximately how many cigarettes per day: 0 - Alcohol/Substance Use Hx Alcohol Use: No History of Substance Use: reports: None Home Medications - Allergies Allergies/Adverse Reactions: Allergies Allergy/AdvReac Type Severity Reaction Status Date / Time No Known Allergies Allergy Verified 08/28/17 12:23 - Home Medications Home Medications: Ambulatory Orders Atorvastatin Ca [Lipitor] 10 mg PO DAILY 07/15/14 Furosemide [Lasix -] 20 mg PO DAILY 07/15/14 Losartan Potassium 25 mg PO DAILY 07/15/14 Metoprolol Tartrate 50 mg PO DAILY 07/15/14 Omeprazole [Prilosec] 20 mg PO DAILY 07/15/14 Ranolazine [Ranexa] 500 mg PO BID 07/15/14 Selegiline HCl 5 mg PO BID 07/15/14 Carbidopa/Levodopa 25/100 [Sinemet 25/100 -] 1 each PO TID tablet 05/24/17 Docusate Sodium [Colace -] 100 mg PO BID capsule 05/24/17 Isosorbide Mononitrate [Imdur -] 30 mg PO DAILY #30 tab.sr.24h 05/24/17 Polyethylene Glycol 3350 [Miralax 119 gm Btl -] 17 gm PO BID bottle 05/24/17 Aspirin Coated [Ecotrin -] 81 mg PO DAILY 06/21/17 Dextran 70/Hypromellose [Artificial Tears Eye Drops] 2 dose OU BID 06/21/17 Pimavanserin Tartrate [Nuplazid] 34 mg PO DAILY 06/21/17 Family Disease History - Family Disease History Family Disease History: Diabetes: Father, Other: Mother (alzheimers) Review of Systems Unable to obtain ROS, reason: Dementia - Review of Systems Constitutional: reports: Loss of Appetite, Weakness Physical Examination Vital Signs Period Temp Pulse Resp BP Sys/Barrett Pulse Ox Last 24 Hr 98.3 F-98.6 F 53-110 14-18 91-143/54-90 97-99 Constitutional: Yes: Well Nourished, No Distress, Calm Cardiovascular: Yes: Pulse Irregular Respiratory: Yes: Diminished Musculoskeletal: Yes: Muscle Weakness Edema: Yes (left) Neurological: Cn intact, cogwheeling noted R>L, bradykinesia, visible tremor in UE, sensory intact, gait deferred CBCD WBC 8.0 K/mm3 (4.0-10.0) 08/29/17 06:25 RBC 3.07 M/mm3 (4.00-5.60) L 08/29/17 06:25 Hgb 10.0 GM/dL (11.7-16.9) L D 08/29/17 06:25 Hct 28.8 % (35.4-49) L 08/29/17 06:25 MCV 93.8 fl (80-96) 08/29/17 06:25 MCHC 34.8 g/dl (32.0-35.9) 08/29/17 06:25 RDW 13.7 % (11.9-15.9) 08/29/17 06:25 Plt Count 292 K/MM3 (134-434) 08/29/17 06:25 MPV 7.8 fl (7.5-11.1) 08/29/17 06:25 CMP Sodium 145 mmol/L (136-145) 08/29/17 06:25 Potassium 3.7 mmol/L (3.5-5.1) 08/29/17 06:25 Chloride 112 mmol/L (98-107) H 08/29/17 06:25 Carbon Dioxide 29 mmol/L (21-32) 08/29/17 06:25 Anion Gap 4 (8-16) L 08/29/17 06:25 BUN 20 mg/dL (7-18) H 08/29/17 06:25 Creatinine 1.0 mg/dL (0.7-1.3) D 08/29/17 06:25 Creat Clearance w eGFR > 60 (>60) 08/29/17 06:25 Calcium 8.5 mg/dL (8.5-10.1) 08/29/17 06:25 Total Bilirubin 0.5 mg/dL (0.2-1.0) 08/29/17 06:25 AST 39 U/L (15-37) H D 08/29/17 06:25 ALT 7 U/L (12-78) L D 08/29/17 06:25 Alkaline Phosphatase 54 U/L (45-117) 08/29/17 06:25 Total Protein 5.8 g/dl (6.4-8.2) L 08/29/17 06:25 Albumin 2.5 g/dl (3.4-5.0) L 08/29/17 06:25 Imaging - Results Chest X-ray: Report Reviewed Cat Scan: Report Reviewed Ultrasound: Report Reviewed Plan: 89-year-old male with history of dementia was sent from a [facility] for evaluation of worsening weakness and decreased appetite, and confusion since . As per staff no meds were given this morning and called EMS when patient appeared to be weaker than yesterday. No BGM was done and states vital signs were stable upon transfer. As per staff the Lasix was increased but did not start the new dose as of yet. Does have parkinson's disease and I was consulted regarding medication. Spoke to primary team, some medications not available at [facility]. Was on nuplazid and agree with change to Seroquel. Has been on Carbidopa/Levodopa combination with selegeline which is not available at [facility]. Will add Amantadine which may help with his extrapyramidal symptoms and should be generic and avaiabale. Dose of 100mg twice daily ordered. Monitor Afib, cardiology followup, defer AC to cardiology. Fall precautions with parkinson's.
[2017-08-29] MEDS: LOSARTAN POTASSIUM 25 MG TABLET PO SCH (10:45)
[2017-08-29] MEDS: DOCUSATE SODIUM 100 MG CAPSULE (FP) PO SCH ×2 (10:45→22:53)
[2017-08-29] MEDS: ASPIRIN COATED 81 MG TABLET.EC PO SCH (10:46)
[2017-08-29] MEDS: FUROSEMIDE 20 MG TABLET (FP) PO SCH (10:46)
[2017-08-29] MEDS: ISOSORBIDE MONONITRATE 30 MG TAB.SR.24H (FP) PO SCH (10:46)
[2017-08-29] MEDS: RANOLAZINE E.R. 500 MG TABLET (FP) PO SCH ×2 (10:47→22:53)
[2017-08-29] MEDS: POLYETHYLENE GLYCOL 3350 119 GM BTL PO SCH ×2 (10:47→22:54)
[2017-08-29] MEDS: METOPROLOL TARTRATE 50 MG TABLET (FP) PO SCH (10:47)
[2017-08-29] MEDS: AMANTADINE HCL 100 MG TABLET PO SCH ×2 (10:55→22:53)
--- NOTE | 2017-08-29 12:25 | EKG ---
Test Reason : Blood Pressure : / mmHG Vent. Rate : 082 BPM Atrial Rate : 081 BPM P-R Int : 000 ms QRS Dur : 104 ms QT Int : 406 ms P-R-T Axes : 000 -04 054 degrees QTc Int : 474 ms POOR DATA QUALITY, INTERPRETATION MAY BE ADVERSELY AFFECTED ATRIAL FIBRILLATION NONSPECIFIC ST AND T WAVE ABNORMALITY PROLONGED QT ABNORMAL ECG WHEN COMPARED WITH ECG OF 28-AUG-2017 09:20, POOR DATA QUALITY IN CURRENT ECG PRECLUDES SERIAL COMPARISON PREMATURE VENTRICULAR COMPLEXES NO LONGER SEEN Confirmed by MADISON DICKINSON MD ([id number]) on 08/29/2017 12:25:29 PM Referred By: Confirmed By:MADISON DICKINSON MD
--- NOTE | 2017-08-29 12:30 | CONS ---
DATE OF CONSULTATION: 08/29/2017 Cardiology consultation LOCATION: Emergency room HISTORY: The patient is an 89-year-old gentleman with a history of coronary artery disease status post multivessel PCI/stenting, history of hypertension, hypertensive cardiovascular disease, hypertension, history of congestive heart failure, parkinsonism, progressive mental changes who was admitted from a nursing home facility with history of generalized weakness, confusion, poor appetite. The patient is unable to give an appropriate history because of confusion and extreme lethargy. The emergency room initial admission notes were seen and evaluated. There is no history of chest pain or discomfort recorded. No history of dyspnea, paroxysmal or nocturnal dyspnea, or orthopnea. There is a history of pedal edema. No history of palpitations, lightheadedness, dizziness, or syncope. There has been a progressive decrease in mentation and confusion. PAST MEDICAL HISTORY: As mentioned in the history of present illness. SOCIAL HISTORY: Not available. FAMILY HISTORY: Not available. MEDICATIONS: As documented on August 28, 2017. The patient was on the following medicines. Current medications are as follows: 1. Amantadine 100 mg p.o. b.i.d. 2. Losartan 25 mg p.o. daily. 3. Heparin as per protocol. 4. Seroquel 25 mg p.o. daily. 5. Lopressor 50 mg p.o. daily. 6. Ranexa 500 mg p.o. b.i.d. 7. Colace 100 mg p.o. b.i.d. 8. MiraLAX 17 g p.o. b.i.d. 9. Carbidopa/levodopa 25/100 mg p.o. b.i.d. 10. Atorvastatin 10 mg p.o. daily. 11. Lasix 20 mg p.o. daily. 12. Isosorbide mononitrate 30 mg p.o. daily. 13. Aspirin 81 mg p.o. daily. ALLERGIES: None reported. REVIEW OF SYSTEMS: Unable to obtain review of systems because of patient's mental status. PHYSICAL EXAMINATION: General: An 89-year-old extremely lethargic gentleman arousable but appears confused. There was no pallor, cyanosis, clubbing, or jaundice noted. Vital Signs: Blood pressure 93/54 mmHg, pulse 80 beats per minute and irregularly irregular, temperature on August 28 was 98.3 degrees Fahrenheit, respirations 18 per minute, oxygen saturation 98% on room air. Neck: Supple. No jugular venous distention. Hepatojugular reflux was negative. Carotids are 2+. Upstrokes are normal. Unable to appreciate bruits. There is no thyromegaly. Heart: PMI is in the 5th intercostal space. No heaves or thrills. S1 is variable. S2 is split. Grade 2/6 apical systolic murmur that is poorly radiating. Lungs: Clear on auscultation. Abdomen: Soft, protuberant, nontender. No hepatosplenomegaly or palpable masses are felt. Bowel sounds are decreased. No bruits are heard. Extremities: There is 1+ bilateral pitting edema. Femoral pulses are 1 to 2+. Dorsalis pedis and posterior tibial pulses are weak. LABORATORY DATA: August 29, 2017: WBC count 8000, hemoglobin 10 g/dL, platelet count 293,000. Differential is normal. Chemistry: Sodium 145, potassium 3.7, chloride 112, CO2 is 29 mmol/L, BUN 20, creatinine 1 mg/dL, random glucose 117 mg/dL, hemoglobin A1C 6.4%. Magnesium 2 mg/dL. CK was elevated at 547. Troponins were elevated at 0.15 and 0.12. There was reversal of A/G ratio. Total cholesterol was 120, triglycerides were 63, LDL cholesterol 67, HDL cholesterol 45. Atrial fibrillation with gnnqudgd-iw-amdua ventricular response. Baseline artifacts were recorded. Occasional ventricular ectopic beats, which were single and unifocal. Diffuse ST and T-wave abnormalities. X-ray chest: New right base changes since prior study. IMPRESSION: 1. Lethargy, weakness, mental status changes etiology to be determined. 2. Coronary artery disease status post multivessel percutaneous coronary intervention. 3. Elevated troponin levels etiology: A. Secondary to number 2. B. Atrial fibrillation. C. Congestive heart failure. 4. Hypertension, hypertensive cardiovascular disease. 5. Parkinsonism. 6. Anemia. 7. Hypertension, hypertensive cardiovascular disease. 8. Atrial fibrillation with bwizdbar-mc-ukovx ventricular response. 9. Ventricular ectopic beats. RECOMMENDATION: 1. Neurological evaluation and follow up in progress. 2. Follow up ECG and enzymes. 3. Concur with current line of treatment. 4. T3, T4, TSH. 5. Echocardiogram. PROGNOSIS: Critical. Thank you for your referral. Yours Sincerely, EL DESAI M.D. YAYA/[id number]
--- NOTE | 2017-08-29 14:07 | PN ---
Progress Note, Physician Chief Complaint: patient seen and examined sleeping in ER family at bedside iv heparin drip running - Current Medication List Current Medications: Active Medications Amantadine HCl (Symmetrel -) 100 mg PO BID [facility] Last Admin: 08/29/17 10:55 Dose: 100 mg Aspirin (Ecotrin -) 81 mg PO DAILY [facility] Last Admin: 08/29/17 10:46 Dose: 81 mg Atorvastatin Calcium (Lipitor -) 10 mg PO HS [facility] Last Admin: 08/28/17 23:00 Dose: 10 mg Carbidopa/Levodopa (Sinemet 25/100 -) 1 each PO TID [facility] Last Admin: 08/29/17 06:27 Dose: 1 each Docusate Sodium (Colace -) 100 mg PO BID [facility] Last Admin: 08/29/17 10:45 Dose: 100 mg Furosemide (Lasix -) 20 mg PO DAILY [facility] Last Admin: 08/29/17 10:46 Dose: 20 mg Heparin Sodium/Dextrose (Heparin Infusion -) 25,000 units in 500 mls @ 20 mls/ hr IVPB TITR ELENITA; 1,000 UNITS/HR PRN Reason: Protocol Last Titration: 08/29/17 05:24 Dose: 1,000 units/hr, 20 mls/hr Isosorbide Mononitrate (Imdur -) 30 mg PO DAILY [facility] Last Admin: 08/29/17 10:46 Dose: 30 mg Losartan Potassium (Cozaar -) 25 mg PO DAILY [facility] Last Admin: 08/29/17 10:45 Dose: 25 mg Metoprolol Tartrate (Lopressor -) 50 mg PO DAILY [facility] Last Admin: 08/29/17 10:47 Dose: 50 mg Polyethylene Glycol (Miralax (For Daily Use) -) 17 gm PO BID [facility] Last Admin: 08/29/17 10:47 Dose: 17 gm Quetiapine Fumarate (Seroquel -) 25 mg PO HS [facility] Last Admin: 08/28/17 23:30 Dose: 25 mg Ranolazine (Ranexa -) 500 mg PO BID [facility] Last Admin: 08/29/17 10:47 Dose: 500 mg - Objective Vital Signs: Vital Signs Temperature 97.4 F L 08/29/17 10:00 Pulse Rate 89 08/29/17 10:00 Respiratory Rate 20 08/29/17 10:00 Blood Pressure 121/71 08/29/17 10:00 O2 Sat by Pulse Oximetry (%) 90 L 08/29/17 09:28 Constitutional: Yes: Calm Cardiovascular: Yes: Pulse Irregular, S1, S2 Respiratory: Yes: CTA Bilaterally, Diminished (at bases) Gastrointestinal: Yes: Normal Bowel Sounds, Soft Edema: Yes (left leg more than right ) Neurological: Yes: Alert (when aroused he responds to his name) Labs: CBC, BMP 08/29/17 06:25 08/29/17 06:25 INR, PTT INR 1.44 (0.82-1.09) H 08/28/17 10:00 Problem List - Problems (1) DVT (deep venous thrombosis) Assessment/Plan: iv heparin drip\vascular consult heme eval Code(s): I82.409 - ACUTE EMBOLISM AND THOMBOS UNSP DEEP VN UNSP LOWER EXTREMITY Qualifiers: DVT location: lower extremity Chronicity: acute Laterality: left (2) Elevated troponin Assessment/Plan: cta postive for PE on iv heparin cardio on board Code(s): R74.8 - ABNORMAL LEVELS OF OTHER SERUM ENZYMES (3) New onset a-fib Assessment/Plan: metoprolol ad iv heparin drip echo Code(s): I48.91 - UNSPECIFIED ATRIAL FIBRILLATION (4) Pulmonary embolism Assessment/Plan: iv heparin drip Code(s): I26.99 - OTHER PULMONARY EMBOLISM WITHOUT ACUTE COR PULMONALE Qualifiers: Chronicity: acute (5) Parkinson disease Assessment/Plan: started on amantidine on sinement nupalizid changed to seroquel Code(s): G20 - PARKINSON'S DISEASE
[2017-08-29] MEDS: HEPARIN INFUSION - 25,000 UNITS/500 ML INFUS.BAG IVPB SCH (16:12)
--- NOTE | 2017-08-29 21:10 | CONSULT ---
Consult - text type - Consultation Consultation Note: 89-year-old male with history of dementia was sent from a [facility] for evaluation of worsening weakness and decreased appetite, and confusion since . We have been consulted regarding LLE DVT and b/l PE He is on heparin drip at this time confused, comfortable denies any complaints Allergies/Adverse Reactions: Allergies Allergy/AdvReac Type Severity Reaction Status Date / Time No Known Allergies Allergy Verified 08/28/17 12:23 Home Medications: Ambulatory Orders Atorvastatin Ca [Lipitor] 10 mg PO DAILY 07/15/14 Furosemide [Lasix -] 20 mg PO DAILY 07/15/14 Losartan Potassium 25 mg PO DAILY 07/15/14 Metoprolol Tartrate 50 mg PO DAILY 07/15/14 Omeprazole [Prilosec] 20 mg PO DAILY 07/15/14 Ranolazine [Ranexa] 500 mg PO BID 07/15/14 Selegiline HCl 5 mg PO BID 07/15/14 Carbidopa/Levodopa 25/100 [Sinemet 25/100 -] 1 each PO TID tablet 05/24/17 Docusate Sodium [Colace -] 100 mg PO BID capsule 05/24/17 Isosorbide Mononitrate [Imdur -] 30 mg PO DAILY #30 tab.sr.24h 05/24/17 Polyethylene Glycol 3350 [Miralax 119 gm Btl -] 17 gm PO BID bottle 05/24/17 Aspirin Coated [Ecotrin -] 81 mg PO DAILY 06/21/17 Dextran 70/Hypromellose [Artificial Tears Eye Drops] 2 dose OU BID 06/21/17 Pimavanserin Tartrate [Nuplazid] 34 mg PO DAILY 06/21/17 Active Medications Generic Name Dose Route Start Last Admin Trade Name Freq PRN Reason Stop Dose Admin Amantadine HCl 100 mg 08/29/17 10:00 08/29/17 22:53 Symmetrel - PO 100 mg BID ELENITA Administration Aspirin 81 mg 08/29/17 10:00 08/29/17 10:46 Ecotrin - PO 81 mg DAILY ELENITA Administration Atorvastatin Calcium 10 mg 08/28/17 22:00 08/29/17 22:53 Lipitor - PO 10 mg HS ELENITA Administration Carbidopa/Levodopa 1 each 08/28/17 17:00 08/30/17 06:36 Sinemet 25/100 - PO 1 each TID ELENITA Administration Docusate Sodium 100 mg 08/28/17 22:00 08/29/17 22:53 Colace - PO 100 mg BID ELENITA Administration Furosemide 20 mg 08/29/17 10:00 08/29/17 10:46 Lasix - PO 20 mg DAILY ELENITA Administration Heparin Sodium/Dextrose 25,000 units in 500 mls @ 20 mls/hr 08/28/17 15:45 16:12 Heparin Infusion - IVPB 1,000 units/hr TITR ELENITA 20 mls/hr Protocol Administration 1,000 UNITS/HR Isosorbide Mononitrate 30 mg 08/29/17 10:00 08/29/17 10:46 Imdur - PO 30 mg DAILY ELENITA Administration Losartan Potassium 25 mg 08/29/17 10:00 08/29/17 10:45 Cozaar - PO 25 mg DAILY ELENITA Administration Metoprolol Tartrate 50 mg 08/29/17 10:00 08/29/17 10:47 Lopressor - PO 50 mg DAILY ELENITA Administration Polyethylene Glycol 17 gm 08/28/17 22:00 08/29/17 22:54 Miralax (For Daily Use) - PO 17 gm BID ELENITA Administration Quetiapine Fumarate 25 mg 08/28/17 22:00 08/29/17 22:53 Seroquel - PO 25 mg HS ELENITA Administration Ranolazine 500 mg 08/28/17 22:00 08/29/17 22:53 Ranexa - PO 500 mg BID ELENITA Administration PMH Cancer: Yes (skin) Cardiac Disorders: Yes (HF) HTN: Yes Hypercholesterolemia: Yes Psychiatric Problems: Yes (Dilusions, anxiety, agitation, restlessness) dementia parkinsons disease - Suicide/Smoking/Psychosocial Hx Smoking History: Unknown if ever smoked - Vital Signs Last Vital Signs Temp Pulse Resp BP Pulse Ox 99.2 F 114 H 16 120/84 96 08/28/17 08:59 08/28/17 08:59 08/28/17 08:59 08/28/17 08:59 08/28/17 08:59 - Physical Exam General Appearance: Yes: Nourished, Appropriately Dressed. Neck: positive: Supple Respiratory/Chest: positive: Lungs Clear, Normal Breath Sounds. Cardiovascular: positive: Regular Rhythm, Edema (3+ pitting edema to left foot and ankle), Tachycardia. negative: Murmur Gastrointestinal/Abdominal: positive: Soft. negative: Tenderness A/P 89 y/o patient with parkinsons, dementia, CHF, transferred from [facility] for worsening weakness Noted to have LLE DVT and Pulmonary embolus in the right main pulmonary artery extending to the proximal and distal right lower lobe pulmonary artery bifurcations as well as small pulmonary emboli in the distal left lower lobe pulmonary artery. He is on heparin drip cultures ngative will discuss with PMD --nl renal function/mildly elevated AST Mildly elevated PT at baseline--trialof vit. K ? switch to NOACs at discharge ---will discuss with other teams involved
[2017-08-29] MEDS ORDERED: PT OWN MED DRAWER 7, Y5N ONE (22:53)
[2017-08-29] MEDS: QUEtiapine FUMARATE 25 MG TABLET (FP) PO SCH (22:53)
[2017-08-29] MEDS: ATORVASTATIN CA 10 MG TABLET (FP) PO SCH (22:53)
[2017-08-30] MEDS: CARBIDOPA/LEVODOPA 25/100 TABLET (FP) PO SCH ×3 (06:36→22:11)
[2017-08-30 07:41] LABS: HEMATOCRIT 26.2 % (35.4-49); HEMOGLOBIN 9.3 GM/dL (11.7-16.9); MCHC 35.3 g/dl (32.0-35.9); MEAN CELL VOLUME 93.3 fl (80-96); MEAN PLT VOLUME 8.2 fl (7.5-11.1); PLATELET COUNT 282 K/MM3 (134-434); RBC 2.81 M/mm3 (4.00-5.60); RDW 13.8 % (11.9-15.9); WHITE BLOOD COUNT 7.7 K/mm3 (4.0-10.0)
--- NOTE | 2017-08-30 09:04 | PN ---
Progress Note, Physician - Current Medication List Current Medications: Active Medications Amantadine HCl (Symmetrel -) 100 mg PO BID [facility] Last Admin: 08/29/17 22:53 Dose: 100 mg Aspirin (Ecotrin -) 81 mg PO DAILY [facility] Last Admin: 08/29/17 10:46 Dose: 81 mg Atorvastatin Calcium (Lipitor -) 10 mg PO HS [facility] Last Admin: 08/29/17 22:53 Dose: 10 mg Carbidopa/Levodopa (Sinemet 25/100 -) 1 each PO TID [facility] Last Admin: 08/30/17 06:36 Dose: 1 each Docusate Sodium (Colace -) 100 mg PO BID [facility] Last Admin: 08/29/17 22:53 Dose: 100 mg Furosemide (Lasix -) 20 mg PO DAILY [facility] Last Admin: 08/29/17 10:46 Dose: 20 mg Heparin Sodium/Dextrose (Heparin Infusion -) 25,000 units in 500 mls @ 20 mls/ hr IVPB TITR ELENITA; 1,000 UNITS/HR PRN Reason: Protocol Last Admin: 08/29/17 16:12 Dose: 1,000 units/hr, 20 mls/hr Isosorbide Mononitrate (Imdur -) 30 mg PO DAILY [facility] Last Admin: 08/29/17 10:46 Dose: 30 mg Losartan Potassium (Cozaar -) 25 mg PO DAILY [facility] Last Admin: 08/29/17 10:45 Dose: 25 mg Metoprolol Tartrate (Lopressor -) 50 mg PO DAILY [facility] Last Admin: 08/29/17 10:47 Dose: 50 mg Phytonadione (Aqua Mephyton Injection -) 5 mg SQ DAILY [facility] Stop: 09/01/17 10:01 Polyethylene Glycol (Miralax (For Daily Use) -) 17 gm PO BID [facility] Last Admin: 08/29/17 22:54 Dose: 17 gm Quetiapine Fumarate (Seroquel -) 25 mg PO HS [facility] Last Admin: 08/29/17 22:53 Dose: 25 mg Ranolazine (Ranexa -) 500 mg PO BID [facility] Last Admin: 08/29/17 22:53 Dose: 500 mg - Objective Vital Signs: Vital Signs Temperature 98.1 F 08/30/17 06:00 Pulse Rate 84 08/30/17 06:00 Respiratory Rate 20 08/30/17 06:00 Blood Pressure 94/60 05/01/18 06:00 O2 Sat by Pulse Oximetry (%) 97 08/29/17 22:00 Cardiovascular: Yes: S1, S2 Respiratory: Yes: Regular, CTA Bilaterally Gastrointestinal: Yes: Normal Bowel Sounds, Soft Labs: CBC, BMP 08/30/17 06:35 08/29/17 06:25 INR, PTT INR 1.44 (0.82-1.09) H 08/28/17 10:00 Assessment/Plan - Problems (1) DVT (deep venous thrombosis) Assessment/Plan: iv heparin drip\vascular consult heme eval Code(s): I82.409 - ACUTE EMBOLISM AND THOMBOS UNSP DEEP VN UNSP LOWER EXTREMITY Qualifiers: DVT location: lower extremity Chronicity: acute Laterality: left (2) Elevated troponin Assessment/Plan: cta postive for PE on iv heparin cardio on board Code(s): R74.8 - ABNORMAL LEVELS OF OTHER SERUM ENZYMES (3) New onset a-fib Assessment/Plan: metoprolol ad iv heparin drip echo Code(s): I48.91 - UNSPECIFIED ATRIAL FIBRILLATION (4) Pulmonary embolism Assessment/Plan: iv heparin drip Code(s): I26.99 - OTHER PULMONARY EMBOLISM WITHOUT ACUTE COR PULMONALE Qualifiers: Chronicity: acute (5) Parkinson disease Assessment/Plan: started on amantidine on sinement nupalizid changed to seroquel Code(s): G20 - PARKINSON'S DISEASE
--- NOTE | 2017-08-30 09:12 | PN ---
Progress Note (short form) - Note Progress Note: Neurology History of Present Illness: 89-year-old male with history of dementia was sent from a [facility] for evaluation of worsening weakness and decreased appetite, and confusion since . As per staff no meds were given this morning and called EMS when patient appeared to be weaker than yesterday. No BGM was done and states vital signs were stable upon transfer. As per staff the Lasix was increased but did not start the new dose as of yet. Does have parkinson's disease and I was consulted regarding medication. Spoke to primary team, some medications not available at care home. Was on nuplazid and agree with change to Seroquel. Has been on Carbidopa/Levodopa combination with selegeline which is not available at care home. Added Amantadine to help with his extrapyramidal symptoms and should be generic and available at care home. Dose of 100mg twice daily ordered. Patient tolerated medication thus far. No new complaints. Being fed at bedside by nurse's aide. Active Medications Amantadine HCl (Symmetrel -) 100 mg PO BID [facility] Last Admin: 08/29/17 22:53 Dose: 100 mg Aspirin (Ecotrin -) 81 mg PO DAILY [facility] Last Admin: 08/29/17 10:46 Dose: 81 mg Atorvastatin Calcium (Lipitor -) 10 mg PO HS [facility] Last Admin: 08/29/17 22:53 Dose: 10 mg Carbidopa/Levodopa (Sinemet 25/100 -) 1 each PO TID [facility] Last Admin: 08/30/17 06:36 Dose: 1 each Docusate Sodium (Colace -) 100 mg PO BID [facility] Last Admin: 08/29/17 22:53 Dose: 100 mg Furosemide (Lasix -) 20 mg PO DAILY [facility] Last Admin: 08/29/17 10:46 Dose: 20 mg Heparin Sodium/Dextrose (Heparin Infusion -) 25,000 units in 500 mls @ 20 mls/ hr IVPB TITR [facility]; 1,000 UNITS/HR PRN Reason: Protocol Last Admin: 08/29/17 16:12 Dose: 1,000 units/hr, 20 mls/hr Isosorbide Mononitrate (Imdur -) 30 mg PO DAILY [facility] Last Admin: 08/29/17 10:46 Dose: 30 mg Losartan Potassium (Cozaar -) 25 mg PO DAILY [facility] Last Admin: 04/30/18 10:45 Dose: 25 mg Metoprolol Tartrate (Lopressor -) 50 mg PO DAILY [facility] Last Admin: 08/29/17 10:47 Dose: 50 mg Phytonadione (Aqua Mephyton Injection -) 5 mg SQ DAILY [facility] Stop: 09/01/17 10:01 Polyethylene Glycol (Miralax (For Daily Use) -) 17 gm PO BID [facility] Last Admin: 08/29/17 22:54 Dose: 17 gm Quetiapine Fumarate (Seroquel -) 25 mg PO HS [facility] Last Admin: 08/29/17 22:53 Dose: 25 mg Ranolazine (Ranexa -) 500 mg PO BID [facility] Last Admin: 08/29/17 22:53 Dose: 500 mg Physical Examination Vital Signs Temperature 98.1 F 08/30/17 06:00 Pulse Rate 84 08/30/17 06:00 Respiratory Rate 20 08/30/17 06:00 Blood Pressure 94/60 08/30/17 06:00 O2 Sat by Pulse Oximetry (%) 97 08/29/17 22:00 Constitutional: Yes: Well Nourished, No Distress, Calm Cardiovascular: Yes: Pulse Irregular Respiratory: Yes: Diminished Musculoskeletal: Yes: Muscle Weakness Edema: Yes (left) Neurological: Cn intact, cogwheeling noted R>L, bradykinesia, visible minimal tremor in RUE, sensory intact, gait deferred CBCD WBC 7.7 K/mm3 (4.0-10.0) 08/30/17 06:35 RBC 2.81 M/mm3 (4.00-5.60) L 08/30/17 06:35 Hgb 9.3 GM/dL (11.7-16.9) L 08/30/17 06:35 Hct 26.2 % (35.4-49) L 08/30/17 06:35 MCV 93.3 fl (80-96) 08/30/17 06:35 MCHC 35.3 g/dl (32.0-35.9) 08/30/17 06:35 RDW 13.8 % (11.9-15.9) 08/30/17 06:35 Plt Count 282 K/MM3 (134-434) 08/30/17 06:35 MPV 8.2 fl (7.5-11.1) 08/30/17 06:35 CMP Sodium 145 mmol/L (136-145) 08/29/17 06:25 Potassium 3.7 mmol/L (3.5-5.1) 08/29/17 06:25 Chloride 112 mmol/L (98-107) H 08/29/17 06:25 Carbon Dioxide 29 mmol/L (21-32) 08/29/17 06:25 Anion Gap 4 (8-16) L 08/29/17 06:25 BUN 20 mg/dL (7-18) H 08/29/17 06:25 Creatinine 1.0 mg/dL (0.7-1.3) D 08/29/17 06:25 Creat Clearance w eGFR > 60 (>60) 08/29/17 06:25 Random Glucose 117 mg/dL (74-106) H D 08/29/17 06:25 Calcium 8.5 mg/dL (8.5-10.1) 08/29/17 06:25 Total Bilirubin 0.5 mg/dL (0.2-1.0) 08/29/17 06:25 AST 39 U/L (15-37) H D 08/29/17 06:25 ALT 7 U/L (12-78) L D 08/29/17 06:25 Alkaline Phosphatase 54 U/L (45-117) 08/29/17 06:25 Total Protein 5.8 g/dl (6.4-8.2) L 08/29/17 06:25 Albumin 2.5 g/dl (3.4-5.0) L 08/29/17 06:25 CARDIAC ENZYMES Creatine Kinase 266 IU/L (39-308) 08/30/17 06:35 Troponin I 0.06 ng/ml (0.00-0.05) H D 08/30/17 06:35 Imaging - Results Chest X-ray: Report Reviewed Cat Scan: Report Reviewed Ultrasound: Report Reviewed Plan: 89-year-old male with history of dementia was sent from a [facility] for evaluation of worsening weakness and decreased appetite, and confusion since . As per staff no meds were given this morning and called EMS when patient appeared to be weaker than yesterday. No BGM was done and states vital signs were stable upon transfer. As per staff the Lasix was increased but did not start the new dose as of yet. Does have parkinson's disease and I was consulted regarding medication. Spoke to primary team, some medications not available at care home. Was on nuplazid and agree with change to Seroquel. Has been on Carbidopa/Levodopa combination with selegeline which is not available at care home. Added Amantadine to help with his extrapyramidal symptoms and should be generic and available at care home. Dose of 100mg twice daily ordered. Patient tolerated medication thus far. No new complaints. Monitor Afib, cardiology followup, defer AC to cardiology. Fall precautions with parkinson's.
[2017-08-30] MEDS ORDERED: PT OWN MED DRAWER 7, Y5N ONE ×3 (09:22→22:13)
[2017-08-30] MEDS: FUROSEMIDE 20 MG TABLET (FP) PO SCH (09:30)
[2017-08-30] MEDS: DOCUSATE SODIUM 100 MG CAPSULE (FP) PO SCH ×2 (09:30→22:11)
[2017-08-30] MEDS: ASPIRIN COATED 81 MG TABLET.EC PO SCH (09:30)
[2017-08-30] MEDS: RANOLAZINE E.R. 500 MG TABLET (FP) PO SCH ×2 (09:30→22:11)
[2017-08-30] MEDS: ISOSORBIDE MONONITRATE 30 MG TAB.SR.24H (FP) PO SCH (09:30)
[2017-08-30] MEDS: POLYETHYLENE GLYCOL 3350 119 GM BTL PO SCH ×2 (09:30→22:12)
[2017-08-30] MEDS: LOSARTAN POTASSIUM 25 MG TABLET PO SCH (09:30)
[2017-08-30] MEDS: HEPARIN INFUSION - 25,000 UNITS/500 ML INFUS.BAG IVPB SCH (09:31)
[2017-08-30] MEDS: AMANTADINE HCL 100 MG TABLET PO SCH ×2 (09:31→22:14)
[2017-08-30] MEDS: METOPROLOL TARTRATE 50 MG TABLET (FP) PO SCH (09:31)
[2017-08-30] MEDS ORDERED: PHYTONADIONE 10 MG/1 ML AMP SQ SCH (10:00)
--- NOTE | 2017-08-30 15:46 | PN ---
Progress Note (short form) - Note Progress Note: seen and examined Constitutional: Yes: No Distress, Calm Eyes: Yes: Conjunctiva Clear HENT: Yes: Atraumatic, Normocephalic Neck: Yes: Supple, Trachea Midline Cardiovascular: Yes: Regular Rate and Rhythm Respiratory: Yes: Regular, CTA Bilaterally Gastrointestinal: Yes: Normal Bowel Sounds, Soft Temp Pulse Resp BP Pulse Ox 98 F 80 20 98/68 98 08/30/17 10:00 08/30/17 10:00 08/30/17 10:00 08/30/17 10:00 08/30/17 10:00 CBC, BMP 08/30/17 06:35 08/29/17 06:25 Current Medications Generic Name Dose Route Start Last Admin Trade Name Freq PRN Reason Stop Dose Admin Amantadine HCl 100 mg 08/29/17 10:00 08/30/17 09:31 Symmetrel - PO 100 mg BID ELENITA Administration Aspirin 81 mg 08/29/17 10:00 08/30/17 09:30 Ecotrin - PO 81 mg DAILY ELENITA Administration Atorvastatin Calcium 10 mg 08/28/17 22:00 08/29/17 22:53 Lipitor - PO 10 mg HS ELENITA Administration Carbidopa/Levodopa 1 each 08/28/17 17:00 08/30/17 14:13 Sinemet 25/100 - PO 1 each TID ELENITA Administration Docusate Sodium 100 mg 08/28/17 22:00 08/30/17 09:30 Colace - PO 100 mg BID ELENITA Administration Furosemide 20 mg 08/29/17 10:00 08/30/17 09:30 Lasix - PO 20 mg DAILY ELENITA Administration Heparin Sodium/Dextrose 25,000 units in 500 mls @ 20 mls/hr 08/28/17 15:45 09:31 Heparin Infusion - IVPB 1,000 units/hr TITR ELENITA 20 mls/hr Protocol Administration 1,000 UNITS/HR Isosorbide Mononitrate 30 mg 08/29/17 10:00 08/30/17 09:30 Imdur - PO 30 mg DAILY ELENITA Administration Losartan Potassium 25 mg 08/29/17 10:00 08/30/17 09:30 Cozaar - PO Not Given DAILY ELENITA Metoprolol Tartrate 50 mg 08/29/17 10:00 08/30/17 09:31 Lopressor - PO Not Given DAILY ELENITA Phytonadione 5 mg 08/30/17 10:00 08/30/17 09:18 Aqua Mephyton Injection - SQ 09/01/17 10:01 Not Given DAILY ELENITA Polyethylene Glycol 17 gm 08/28/17 22:00 08/30/17 09:30 Miralax (For Daily Use) - PO 17 gm BID ELENITA Administration Quetiapine Fumarate 25 mg 08/28/17 22:00 08/29/17 22:53 Seroquel - PO 25 mg HS ELENITA Administration Ranolazine 500 mg 08/28/17 22:00 08/30/17 09:30 Ranexa - PO 500 mg BID ELENITA Administration PE: change to Lovenox 1.5mg/kg/day (120mg once daily) in the next few weeks as an OP in the [place],could be changed to NOACs d.w PMD continuos monitoring with fall precautions at [place] too stop heparin drip 4hrs prior to first dose of lovenox. d/w RN, orders in
--- NOTE | 2017-08-30 17:07 | PN ---
Progress Note (short form) - Note Progress Note: Vascular Surgery Pt seen and examined. LLE dvt with PE Pt on IV heparin drip. Left leg is soft, warm, pink. Pt to be switched to lovenox. AC for 6 months in [place] Ruddy West DO
--- NOTE | 2017-08-30 19:42 | PN ---
Progress Note (short form) - Note Progress Note: 89 year old male with h/o CAD, multivessel PCI/stenting, CHF, parkinsonism, admitted with lethargy, weaknessand poor appetite found to have DVT and PE. and atrial fib. Patient is arousable but remains lethargic, was able to recognise me. Active Medications Amantadine HCl (Symmetrel -) 100 mg PO BID [facility] Last Admin: 08/30/17 09:31 Dose: 100 mg Aspirin (Ecotrin -) 81 mg PO DAILY [facility] Last Admin: 08/30/17 09:30 Dose: 81 mg Atorvastatin Calcium (Lipitor -) 10 mg PO HS [facility] Last Admin: 08/29/17 22:53 Dose: 10 mg Carbidopa/Levodopa (Sinemet 25/100 -) 1 each PO TID [facility] Last Admin: 08/30/17 14:13 Dose: 1 each Docusate Sodium (Colace -) 100 mg PO BID [facility] Last Admin: 08/30/17 09:30 Dose: 100 mg Enoxaparin Sodium (Lovenox -) 120 mg SQ DAILY [facility] Furosemide (Lasix -) 20 mg PO DAILY [facility] Last Admin: 08/30/17 09:30 Dose: 20 mg Heparin Sodium/Dextrose (Heparin Infusion -) 25,000 units in 500 mls @ 20 mls/ hr IVPB TITR [facility]; 1,000 UNITS/HR PRN Reason: Protocol Last Admin: 08/30/17 09:31 Dose: 1,000 units/hr, 20 mls/hr Isosorbide Mononitrate (Imdur -) 30 mg PO DAILY [facility] Last Admin: 08/30/17 09:30 Dose: 30 mg Losartan Potassium (Cozaar -) 25 mg PO DAILY [facility] Last Admin: 08/30/17 09:30 Dose: Not Given Metoprolol Tartrate (Lopressor -) 50 mg PO DAILY [facility] Last Admin: 08/30/17 09:31 Dose: Not Given Phytonadione (Aqua Mephyton Injection -) 5 mg SQ DAILY [facility] Stop: 09/01/17 10:01 Last Admin: 08/30/17 09:18 Dose: Not Given Polyethylene Glycol (Miralax (For Daily Use) -) 17 gm PO BID [facility] Last Admin: 08/30/17 09:30 Dose: 17 gm Quetiapine Fumarate (Seroquel -) 25 mg PO HS [facility] Last Admin: 08/29/17 22:53 Dose: 25 mg Ranolazine (Ranexa -) 500 mg PO BID [facility] Last Admin: 08/30/17 09:30 Dose: 500 mg Lethargic, in no acute distress. Last Vital Signs Temp Pulse Resp BP Pulse Ox 98.1 F 95 irregular 20 109/65 98 08/30/17 17:00 08/30/17 17:00 08/30/17 17:00 08/30/17 17:00 08/30/17 10:00 NECK: Supple, no JVD, +ve HJR, carotids 2+. HEART: PMI in the 5th ICS, S1 variable, S2 normal grade I/ apical systolic murmur, no gallops heard. LUNGS: Decreased BS at both bases. ABDOMEN: Soft, nontender, no hepatosplenomegaly., no palpable masses. EXTREMITIES: 2+ bilateral pedal edema. No calf tenderness. Impression: 1. PE. 2. DVT. 3. Atrial fib. 4. CAD,s/p ACS, s/p PCI/Stenting. 5. Parkinsonism. 6. Elevated troponins, : a). Secondary to PE. b). Myocardial ischemia RECOMMENDATION: 1. Current therapy. 2. F/u EKG and troponins. Prognosis: Critical.
[2017-08-30] MEDS: QUEtiapine FUMARATE 25 MG TABLET (FP) PO SCH (22:11)
[2017-08-30] MEDS: ATORVASTATIN CA 10 MG TABLET (FP) PO SCH (22:11)
[2017-08-30] MEDS: ENOXAPARIN NA (PORCINE) 120 MG/0.8 ML DISP.SYRIN SQ SCH (22:12)
[2017-08-31] MEDS: CARBIDOPA/LEVODOPA 25/100 TABLET (FP) PO SCH ×2 (06:44→14:02)
[2017-08-31 07:56] LABS: HEMATOCRIT 26.6 % (35.4-49); HEMOGLOBIN 9.2 GM/dL (11.7-16.9); MCH 32.4 pg (25.7-33.7); MCHC 34.6 g/dl (32.0-35.9); MEAN CELL VOLUME 93.7 fl (80-96); MEAN PLT VOLUME 8.2 fl (7.5-11.1); PLATELET COUNT 269 K/MM3 (134-434); RBC 2.84 M/mm3 (4.00-5.60); RDW 13.3 % (11.9-15.9); WHITE BLOOD COUNT 6.2 K/mm3 (4.0-10.0)
[2017-08-31 08:26] LABS: INR 1.36 (0.82-1.09); PROTHROMBIN TIME (PATIENT) 15.4 SEC (9.7-13.0)
--- NOTE | 2017-08-31 08:46 | DS ---
Physical Examination Vital Signs: Vital Signs Temperature 97.5 F L 08/31/17 06:00 Pulse Rate 68 08/31/17 06:00 Respiratory Rate 20 08/31/17 06:00 Blood Pressure 110/65 08/31/17 06:00 O2 Sat by Pulse Oximetry (%) 94 L 08/30/17 21:44 Cardiovascular: Yes: S1, S2 Respiratory: Yes: Regular, CTA Bilaterally Gastrointestinal: Yes: Normal Bowel Sounds, Soft. No: Tenderness Edema: Yes Labs: CBC, BMP 08/31/17 07:12 08/29/17 06:25 Discharge Summary Reason For Visit: NEW ONSET ATRIAL FIBRILLATION Current Active Problems DVT (deep venous thrombosis) (Acute) Elevated troponin (Acute) New onset a-fib (Acute) Pulmonary embolism (Acute) Hospital Course: 89-year-old male with history of dementia was sent from a [facility] for evaluation of worsening weakness and decreased appetite, and confusion since . As per staff no meds were given this morning and called EMS when patient appeared to be weaker than yesterday. No BGM was done and states vital signs were stable upon transfer. As per staff the Lasix was increased yesterday but did not start the new dose as of yet. History Source: Medical Record Limitations to Obtaining History: Dementia - Past Medical History [employer] SPECIALIST: Yes: Parkinson's Cardiovascular: Yes: CAD, HTN, Other (unspecified cardiac disorder) Dermatology: Yes: Basal Cell (s/p resection), Melanoma (s/p resection) - Problems (1) DVT (deep venous thrombosis) Assessment/Plan: iv heparin drip\vascular consult--Lovenox heme eval Code(s): I82.409 - ACUTE EMBOLISM AND THOMBOS UNSP DEEP VN UNSP LOWER EXTREMITY Qualifiers: DVT location: lower extremity Chronicity: acute Laterality: left (2) Elevated troponin Assessment/Plan: cta postive for PE on iv heparin--lovenox cardio on board Code(s): R74.8 - ABNORMAL LEVELS OF OTHER SERUM ENZYMES (3) New onset a-fib Assessment/Plan: metoprolol ad iv heparin drip echo Code(s): I48.91 - UNSPECIFIED ATRIAL FIBRILLATION (4) Pulmonary embolism Assessment/Plan: iv heparin drip--lovenox Code(s): I26.99 - OTHER PULMONARY EMBOLISM WITHOUT ACUTE COR PULMONALE Qualifiers: Chronicity: acute (5) Parkinson disease Assessment/Plan: started on amantidine on sinement nupalizid changed to seroquel neuro noted and appreciated Code(s): G20 - PARKINSON'S DISEASE - Instructions Referrals: Alexandru Patricia MD [Primary Care Provider] - Disposition: [facility] - Home Medications Comprehensive Discharge Medication List: Ambulatory Orders Atorvastatin Ca [Lipitor] 10 mg PO HS 07/15/14 Losartan Potassium 25 mg PO DAILY 07/15/14 Metoprolol Tartrate 50 mg PO DAILY 07/15/14 Omeprazole [Prilosec] 20 mg PO DAILY 07/15/14 Ranolazine [Ranexa] 500 mg PO BID 07/15/14 Carbidopa/Levodopa 25/100 [Sinemet 25/100 -] 1 each PO TID tablet 05/24/17 Isosorbide Mononitrate [Imdur -] 30 mg PO DAILY #30 tab.sr.24h 05/24/17 Polyethylene Glycol 3350 [Miralax 119 gm Btl -] 17 gm PO BID bottle 05/24/17 Aspirin Coated [Ecotrin -] 81 mg PO DAILY 06/21/17 Dextran 70/Hypromellose [Artificial Tears Eye Drops] 2 dose OU BID 06/21/17 Acetaminophen 650 mg PO Q4H PRN 08/28/17 Cholecalciferol (Vitamin D3) [Vitamin D3] 1,000 unit PO DAILY 08/28/17 Cyanocobalamin/Folic Acid [Vitamin N35-Besnu Acid Tablet] 1 each PO DAILY Loratadine 10 mg PO DAILY 08/28/17 Amantadine HCl [Symmetrel -] 100 mg PO BID tab 08/31/17 Enoxaparin [Lovenox -] 120 mg SQ DAILY disp.syrin 08/31/17 Furosemide [Lasix -] 20 mg PO DAILY tablet 08/31/17 Quetiapine Fumarate [Seroquel -] 25 mg PO HS tablet 08/31/17
[2017-08-31 09:02] VITALS: BP 116/56; PULSE 83; TEMP 97.6
--- NOTE | 2017-08-31 09:34 | PN ---
Progress Note (short form) - Note Progress Note: Neurology History of Present Illness: 89-year-old male with history of dementia was sent from a [facility] for evaluation of worsening weakness and decreased appetite, and confusion since . As per staff no meds were given this morning and called EMS when patient appeared to be weaker than yesterday. No BGM was done and states vital signs were stable upon transfer. As per staff the Lasix was increased but did not start the new dose as of yet. Does have parkinson's disease and I was consulted regarding medication. Spoke to primary team, some medications not available at sn[facility]. Was on nuplazid and agree with change to Seroquel. Has been on Carbidopa/Levodopa combination with selegeline which is not available at snf. Added Amantadine to help with his extrapyramidal symptoms and should be generic and available at snf. Dose of 100mg twice daily ordered. Patient tolerated medication thus far. No new complaints. Eating by self this AM. Appears to have bradykinesia but stable and possibly slightly better than before with new medication regiment. Active Medications Amantadine HCl (Symmetrel -) 100 mg PO BID [facility] Last Admin: 08/30/17 22:14 Dose: 100 mg Aspirin (Ecotrin -) 81 mg PO DAILY [facility] Last Admin: 08/30/17 09:30 Dose: 81 mg Atorvastatin Calcium (Lipitor -) 10 mg PO HS [facility] Last Admin: 08/30/17 22:11 Dose: 10 mg Carbidopa/Levodopa (Sinemet 25/100 -) 1 each PO TID [facility] Last Admin: 08/31/17 06:44 Dose: 1 each Docusate Sodium (Colace -) 100 mg PO BID [facility] Last Admin: 08/30/17 22:11 Dose: 100 mg Enoxaparin Sodium (Lovenox -) 120 mg SQ DAILY [facility] Last Admin: 08/30/17 22:12 Dose: 120 mg Furosemide (Lasix -) 20 mg PO DAILY [facility] Last Admin: 08/30/17 09:30 Dose: 20 mg Heparin Sodium/Dextrose (Heparin Infusion -) 25,000 units in 500 mls @ 20 mls/ hr IVPB TITR [facility]; 1,000 UNITS/HR PRN Reason: Protocol Last Admin: 08/30/17 09:31 Dose: 1,000 units/hr, 20 mls/hr Isosorbide Mononitrate (Imdur -) 30 mg PO DAILY [facility] Last Admin: 08/30/17 09:30 Dose: 30 mg Losartan Potassium (Cozaar -) 25 mg PO DAILY [facility] Last Admin: 08/30/17 09:30 Dose: Not Given Metoprolol Tartrate (Lopressor -) 50 mg PO DAILY [facility] Last Admin: 08/30/17 09:31 Dose: Not Given Phytonadione (Aqua Mephyton Injection -) 5 mg SQ DAILY [facility] Stop: 09/01/17 10:01 Last Admin: 08/30/17 09:18 Dose: Not Given Polyethylene Glycol (Miralax (For Daily Use) -) 17 gm PO BID [facility] Last Admin: 08/30/17 22:12 Dose: 17 gm Quetiapine Fumarate (Seroquel -) 25 mg PO HS [facility] Last Admin: 08/30/17 22:11 Dose: 25 mg Ranolazine (Ranexa -) 500 mg PO BID [facility] Last Admin: 08/30/17 22:11 Dose: 500 mg Physical Examination Vital Signs Temperature 97.6 F 08/31/17 09:00 Pulse Rate 83 08/31/17 09:00 Respiratory Rate 18 08/31/17 09:00 Blood Pressure 116/56 08/31/17 09:00 O2 Sat by Pulse Oximetry (%) 94 L 08/30/17 21:44 Constitutional: Yes: Well Nourished, No Distress, Calm Cardiovascular: Yes: Pulse Irregular Respiratory: Yes: Diminished Musculoskeletal: Yes: Muscle Weakness Edema: Yes (left) Neurological: Cn intact, cogwheeling noted R>L, bradykinesia, visible minimal tremor in RUE, sensory intact, gait deferred CBCD WBC 6.2 K/mm3 (4.0-10.0) 08/31/17 07:12 RBC 2.84 M/mm3 (4.00-5.60) L 08/31/17 07:12 Hgb 9.2 GM/dL (11.7-16.9) L 08/31/17 07:12 Hct 26.6 % (35.4-49) L 08/31/17 07:12 MCV 93.7 fl (80-96) 08/31/17 07:12 MCHC 34.6 g/dl (32.0-35.9) 08/31/17 07:12 RDW 13.3 % (11.9-15.9) 08/31/17 07:12 Plt Count 269 K/MM3 (134-434) 08/31/17 07:12 MPV 8.2 fl (7.5-11.1) 08/31/17 07:12 CMP Sodium 145 mmol/L (136-145) 08/29/17 06:25 Potassium 3.7 mmol/L (3.5-5.1) 08/29/17 06:25 Chloride 112 mmol/L (98-107) H 08/29/17 06:25 Carbon Dioxide 29 mmol/L (21-32) 08/29/17 06:25 Anion Gap 4 (8-16) L 08/29/17 06:25 BUN 20 mg/dL (7-18) H 08/29/17 06:25 Creatinine 1.0 mg/dL (0.7-1.3) D 08/29/17 06:25 Creat Clearance w eGFR > 60 (>60) 08/29/17 06:25 Calcium 8.5 mg/dL (8.5-10.1) 08/29/17 06:25 Total Bilirubin 0.5 mg/dL (0.2-1.0) 08/29/17 06:25 AST 39 U/L (15-37) H D 08/29/17 06:25 ALT 7 U/L (12-78) L D 08/29/17 06:25 Alkaline Phosphatase 54 U/L (45-117) 08/29/17 06:25 Total Protein 5.8 g/dl (6.4-8.2) L 08/29/17 06:25 Albumin 2.5 g/dl (3.4-5.0) L 08/29/17 06:25 Imaging - Results Chest X-ray: Report Reviewed Cat Scan: Report Reviewed Ultrasound: Report Reviewed Plan: 89-year-old male with history of dementia was sent from a [facility] for evaluation of worsening weakness and decreased appetite, and confusion since . As per staff no meds were given this morning and called EMS when patient appeared to be weaker than yesterday. No BGM was done and states vital signs were stable upon transfer. As per staff the Lasix was increased but did not start the new dose as of yet. Does have parkinson's disease and I was consulted regarding medication. Spoke to primary team, some medications not available at snf. Was on nuplazid and agree with change to Seroquel. Has been on Carbidopa/Levodopa combination with selegeline which is not available at snf. Added Amantadine to help with his extrapyramidal symptoms and should be generic and available at snf. Dose of 100mg twice daily ordered. Patient tolerated medication thus far. No new complaints. Doing well with this regiment, slightly improved bradykinesia. Monitor Afib, cardiology followup, defer AC to cardiology. Fall precautions with parkinson's.
[2017-08-31] MEDS: LOSARTAN POTASSIUM 25 MG TABLET PO SCH (09:40)
[2017-08-31] MEDS: DOCUSATE SODIUM 100 MG CAPSULE (FP) PO SCH (09:40)
[2017-08-31] MEDS: ASPIRIN COATED 81 MG TABLET.EC PO SCH (09:40)
[2017-08-31] MEDS: ENOXAPARIN NA (PORCINE) 120 MG/0.8 ML DISP.SYRIN SQ SCH (09:41)
[2017-08-31] MEDS: METOPROLOL TARTRATE 50 MG TABLET (FP) PO SCH (09:41)
[2017-08-31] MEDS: FUROSEMIDE 20 MG TABLET (FP) PO SCH (09:41)
[2017-08-31] MEDS: ISOSORBIDE MONONITRATE 30 MG TAB.SR.24H (FP) PO SCH (09:41)
[2017-08-31] MEDS: RANOLAZINE E.R. 500 MG TABLET (FP) PO SCH (09:43)
[2017-08-31] MEDS: AMANTADINE HCL 100 MG TABLET PO SCH (09:43)
[2017-08-31] MEDS: POLYETHYLENE GLYCOL 3350 119 GM BTL PO SCH (09:43)
--- NOTE | 2017-08-31 13:28 | PN ---
Progress Note (short form) - Note Progress Note: 89 year old male with h/o CAD, multivessel PCI/stenting, CHF, parkinsonism, admitted with lethargy, weaknessand poor appetite found to have DVT and PE. and atrial fib. Patient is more alert, recalls that he is hospitalized. Denies having chest pain or discomfort. Active Medications Generic Name Dose Route Start Last Admin Trade Name Freq PRN Reason Stop Dose Admin Amantadine HCl 100 mg 08/29/17 10:00 08/31/17 09:43 Symmetrel - PO 100 mg BID ELENITA Administration Aspirin 81 mg 08/29/17 10:00 08/31/17 09:40 Ecotrin - PO 81 mg DAILY ELENITA Administration Atorvastatin Calcium 10 mg 08/28/17 22:00 08/30/17 22:11 Lipitor - PO 10 mg HS ELENITA Administration Carbidopa/Levodopa 1 each 08/28/17 17:00 08/31/17 06:44 Sinemet 25/100 - PO 1 each TID ELENITA Administration Docusate Sodium 100 mg 08/28/17 22:00 08/31/17 09:40 Colace - PO 100 mg BID ELENITA Administration Enoxaparin Sodium 120 mg 08/30/17 22:00 08/31/17 09:41 Lovenox - SQ 120 mg DAILY ELENITA Administration Furosemide 20 mg 08/29/17 10:00 08/31/17 09:41 Lasix - PO 20 mg DAILY ELENITA Administration Isosorbide Mononitrate 30 mg 08/29/17 10:00 08/31/17 09:41 Imdur - PO 30 mg DAILY ELENITA Administration Losartan Potassium 25 mg 08/29/17 10:00 08/31/17 09:40 Cozaar - PO 25 mg DAILY ELENITA Administration Metoprolol Tartrate 50 mg 08/29/17 10:00 08/31/17 09:41 Lopressor - PO 50 mg DAILY ELENITA Administration Polyethylene Glycol 17 gm 08/28/17 22:00 08/31/17 09:43 Miralax (For Daily Use) - PO 17 gm BID ELENITA Administration Quetiapine Fumarate 25 mg 08/28/17 22:00 08/30/17 22:11 Seroquel - PO 25 mg HS ELENITA Administration Ranolazine 500 mg 08/28/17 22:00 08/31/17 09:43 Ranexa - PO 500 mg BID ELENITA Administration Lethargic, in no acute distress. Last Vital Signs Temp Pulse Resp BP Pulse Ox 97.6 F 83 18 116/56 96 08/31/17 09:00 08/31/17 09:00 08/31/17 09:00 08/31/17 09:00 08/31/17 10:00 NECK: Supple, no JVD, +ve HJR, carotids 2+. HEART: PMI in the 5th ICS, S1 variable, S2 normal grade I/ apical systolic murmur, no gallops heard. LUNGS: Decreased BS at both bases. ABDOMEN: Soft, nontender, no hepatosplenomegaly., no palpable masses. EXTREMITIES: 2+ bilateral pedal edema. No calf tenderness. CBC, BMP 08/31/17 07:12 08/29/17 06:25 Impression: 1. CAD,s/p ACS, s/p PCI/Stenting. 2. PE. 3. Atrial fib. 4. DVT. 5. Parkinsonism. 6. Elevated troponins. a). Secondary to PE. b). Myocardial ischemia. 7. Anemia, etiology to be determined. RECOMMENDATION: 1. Current therapy. 2. F/u EKG and troponins. 3. F/u CBC BMP 4. Evaluation of anemia. Prognosis: Critical.
== END 2017-08-31 15:44 | DRG 299 ==
LOC: JER 08:59 → JERBED 13:25 → J4W 08-29 16:40
PROVIDERS: ADMIT Family Medicine; ATTEND Family Medicine
DX: I82.402 Acute embolism and thrombosis of unspecified deep veins of left lower extremity (principal); I26.99 Other pulmonary embolism without acute cor pulmonale; J98.11 Atelectasis; I48.91 Unspecified atrial fibrillation; R53.1 Weakness; I25.10 Atherosclerotic heart disease of native coronary artery without angina pectoris; Z98.61 Coronary angioplasty status; R74.8 Abnormal levels of other serum enzymes; G20 Parkinson's disease; D64.9 Anemia, unspecified; F03.90 Unspecified dementia, unspecified severity, without behavioral disturbance, psychotic disturbance, mood disturbance, and anxiety; I25.9 Chronic ischemic heart disease, unspecified
CPT/HCPCS: 36415; 71045-TC-FY; 71275-TC; 80053; 80061; 81003; 81015; 82550; 82553; 82803; 83036; 83605; 83721; 83735; 84439; 84443; 84481; 84484; 85025; 85027; 85384; 85610; 85730; 87040; 87086; 93005; 93010; 93306-TC; 93971-TC; 97116-GP; 97161-GP; 99285-25; J1644; J7030